=== PATIENT | male | born 1960 | race Caucasian/White ===

== ENCOUNTER 2023-06-28 00:47 | Day surgery (SDC) | payer BC, SELFPAY ==
[2023-06-26 08:19] VITALS: BMI 26.4
[2023-06-28 12:47] VITALS: BP 131/82; PULSE 73; RESP 20; TEMP 36.2; O2SAT 99; BMI 25.8
--- NOTE | 2023-06-28 13:29 | PM.HPGS ---
History of Present Illness History of Present Illness Consent: Risks, benefits, and alternatives have been discussed and questions answered. Patient agrees to proceed with procedure. Chief complaint: blood in stool Narrative: Handy Montes is a 63 year old male Presents for colonoscopy. Patient has past medical history is significant for colon polyps. Most recently 2018. Family history is significant that his father had colon cancer. Patient is been in general good health. In June developed a tooth abscess was placed on amoxicillin and during the course of therapy developed bright red blood in his stools. This lasted for approximately 1 week and subsequently been normal over the last 1 month. Patient presents today for colonoscopy to evaluate more thoroughly. Family history as stated. Review of Systems Review of Systems: Review of systems noncontributory. [facility] Past Medical History Medical History (Updated 06/28/23 @ 13:31 by Adalberto Saleh MD) GERD (gastroesophageal reflux disease) Hyperlipidemia Family History Family History Grandparent Family history of alcoholism Family history of lung cancer Family history of coronary artery disease Family history of malignant neoplasm of ovary Diabetes mellitus Social History Social History Smoking status: Former smoker Tobacco type: cigarettes Smoking end date: 10/01/90 Alcohol intake: current Drinks per week: 4 Substance use type: does not use Living arrangements: with family Spiritual care concerns: No Meds Home Medications and Allergies Home Medications Medication Instructions Recorded Confirmed Type tadalafil 5 mg tablet 5 mg PO DAILY 02/02/20 06/26/23 History testosterone cypionate 100 mg/mL 75 mg IM WEEKLY 02/02/20 06/26/23 History intramuscular oil sodium,potassium,mag sulfates 17.5 See Rx Instructions PO .COMPLEX 06/12/23 Rx gram-3.13 gram-1.6 gram oral soln #354 mL (Suprep Bowel Prep Kit) lovastatin 20 mg tablet 20 mg PO DAILY 06/26/23 06/26/23 History olmesartan 40 mg tablet 20 mg PO DAILY 06/26/23 06/26/23 History omeprazole 20 mg capsule,delayed 20 mg PO DAILY 06/26/23 06/26/23 History release Allergies Allergy/AdvReac Type Severity Reaction Status Date / Time No Known Allergies Allergy Verified 06/26/23 08:19 Vital Signs Vital Signs - 24 hr 06/28/23 12:47 Temperature 97.1 F L Pulse Rate 73 Respiratory Rate 20 Blood Pressure 131/82 Pulse Oximetry 99 Oxygen Delivery Room Air Exam Narrative: Physical exam reveals patient to be alert. Vital signs stable. HEENT exam is unremarkable. Patient is anicteric. Lungs are clear to auscultation and percussion. Heart is without murmur or extra sounds. Abdomen bowel sounds are present soft nontender with no organomegaly. Digital external rectal exam normal. Assessment and Plan Assessment and plan (1) Family history of colon cancer in father: Code(s): Z80.0 - Family history of malignant neoplasm of digestive organs Status: Acute Assessment and Plan: Patient's father has had colon cancer for this reason colonoscopy advised at least every 5 years. (2) Hx of adenomatous colonic polyps: Code(s): Z86.010 - Personal history of colonic polyps Status: Acute Assessment and Plan: Patient found to have colon polyps in 2019. Plan for surveillance colonoscopy is a 4-5 year intervals. (3) Blood in stool: Code(s): K92.1 - Melena Status: Acute Assessment and Plan: Recent blood in stool associated with amoxicillin use. Plan for colonoscopy to evaluate more thoroughly. Further recommendations may be given after endoscopy.
--- NOTE | 2023-06-28 13:44 | P.PNAN_ITS ---
Anes - Initial Pre Proc Eval Procedure: Operation Date: 06/28/23 14:00 Proposed Procedures p Colonoscopy - Adalberto Saleh MD Date/Time: 06/28/23 13:44 Surgeon: Adalberto Saleh MD Pre Op Diagnosis: blood in stool Patient Data Age: 63 Gender: M Height: 1.83 m Weight: 86.5 kg Last Vital Signs Temp 97.1 F L 06/28/23 12:47 Pulse 73 06/28/23 12:47 Resp 20 06/28/23 12:47 BP 131/82 06/28/23 12:47 Pulse Ox 99 06/28/23 12:47 O2 Del Method Room Air 06/28/23 12:47 Allergies Allergy/AdvReac Type Severity Reaction Status Date / Time No Known Allergies Allergy Verified 06/26/23 08:19 Home Medications Medication Instructions Recorded Confirmed Type tadalafil 5 mg tablet 5 mg PO DAILY 02/02/20 06/26/23 History testosterone cypionate 100 mg/mL 75 mg IM WEEKLY 02/02/20 06/26/23 History intramuscular oil sodium,potassium,mag sulfates 17.5 See Rx Instructions PO .COMPLEX 06/12/23 Rx gram-3.13 gram-1.6 gram oral soln #354 mL (Suprep Bowel Prep Kit) lovastatin 20 mg tablet 20 mg PO DAILY 06/26/23 06/26/23 History olmesartan 40 mg tablet 20 mg PO DAILY 06/26/23 06/26/23 History omeprazole 20 mg capsule,delayed 20 mg PO DAILY 06/26/23 06/26/23 History release Patient hx anesthesia problems: none Family hx anesthesia problems: none Results Review: All pre-operative results and documents have been reviewed as part of the pre- operative evaluation. [facility] Past Medical History Medical History (Updated 06/28/23 @ 13:31 by Adalberto Saleh MD) GERD (gastroesophageal reflux disease) Hyperlipidemia Family History Family History Grandparent Family history of alcoholism Family history of lung cancer Family history of coronary artery disease Family history of malignant neoplasm of ovary Diabetes mellitus Social History Social History Smoking status: Former smoker Tobacco type: cigarettes Smoking end date: 10/01/90 Alcohol intake: current Drinks per week: 4 Substance use type: does not use Living arrangements: with family Spiritual care concerns: No Anes - Eval Final PreProcedure Day of Procedure 06/28/23 13:44 Patient weight: normal Heart: regular rate and rhythm Lungs: clear to auscultation Airway: Mallampati scale class II Neurological: alert and oriented Last oral intake: >/= 8 hours ASA classification: II Emergent: no Anesthetic plan: proceed Anesthesia type and monitoring: general GIVS and standard monitoring Results Review: All pre-operative results and documents have been reviewed as part of the pre- operative evaluation. Informed Consent: The patient's anesthetic plan and its attendant risks and benefits were discussed with the patient/family/POA. Questions were solicited and answers provided to the satisfaction of the patient/family/POA.
[2023-06-28] MEDS: LACTATED RINGERS 1,000 ML 150 ML IV CONT (13:45)
[2023-06-28 14:16] VITALS: BP 157/96; PULSE 84; RESP 21; O2SAT 97
[2023-06-28 14:26] VITALS: BP 147/84; PULSE 78; RESP 20; O2SAT 99
[2023-06-28 14:36] VITALS: BP 141/91; PULSE 76; RESP 22; O2SAT 99
[2023-06-28] MEDS: ACETAMINOPHEN 325 MG TABLET 650 MG PO (14:44)
== END 2023-06-28 14:45 | disposition home or self-care (01) ==
PROVIDERS: Visit Provider Internal Medicine Gastroenterology
PROC: 0DJD8ZZ Inspection of Lower Intestinal Tract, Via Natural or Artificial Opening Endoscopic (ICD-10-PCS; CPT 45378; principal; 2023-06-28 14:00)
DX: K63.5 Polyp of colon (principal); K64.8 Other hemorrhoids; K57.30 Diverticulosis of large intestine without perforation or abscess without bleeding; Z80.0 Family history of malignant neoplasm of digestive organs; K21.9 Gastro-esophageal reflux disease without esophagitis; E78.5 Hyperlipidemia, unspecified; Z87.891 Personal history of nicotine dependence; Z79.890 Hormone replacement therapy
CPT/HCPCS: 45385; 88305; A9270; J2704; J7120

== ENCOUNTER 2024-04-14 12:17 | Inpatient (IN) | payer BC, SELFPAY ==
[2024-04-14] VITALS (16 sets, daily range): BP systolic 139–159; BP diastolic 82–119; PULSE 89–108; RESP 14–20; TEMP 36.3–36.8; O2SAT 95–98
--- NOTE | ~2024-04-14 | CT_ITS ---
Clinical Indication: Possible perforated bowel CT Scan of the Chest, Abdomen, and Pelvis without Contrast: Technique: Contiguous sections were acquired throughout the chest, abdomen, and pelvis without IV con trast administration. Dose reduction technique was used on this scan by utilizing automated exposure control and iterative reconstruction technique. The dose-length product (DLP) was 1657.15 mGy-cm. Findings: There is no evidence of any significant mediastinal, hilar or axillary lymphadenopathy. There is flui d distention of the esophagus, NG tube in place. ET tube in place.. There is no evidence of pleural or pericardial effusion. There is extensive left lower lobe consolidation. There is additional partial consolidation of the de pendent portions of the left upper lobe. There is mild patchy consolidation at the posterior right elisabeth ng base/lower lobe. The liver, spleen, pancreas, adrenals and kidneys are within normal limits. Probable gallbladder slud ge. No evidence of aortic aneurysm. No lymphadenopathy. Questionable mild wall thickening of the hepatic flexure and proximal transverse colon. No bowel obst ruction. No free air. There is no evidence to suggest acute appendicitis. There is sigmoid diverticul osis. Urinary bladder is collapsed around a Gruber catheter. Prostate gland is enlarged. No ascites. Impression: No evidence of bowel perforation. Extensive left lung consolidation, compatible with pneumonia. Mild patchy consolidation right lung ba se consolidation pneumonia versus atelectasis. Probable gallbladder sludge. Questionable mild wall thickening of the hepatic flexure and proximal transverse colon. Correlate for infectious/inflammatory colitis. Enlarged prostate gland. Reviewed, dictated and finalized at [facility]. Impression: No evidence of bowel perforation. Extensive left lung consolidation, compatible with pneumonia. Mild patchy conso lidation right lung base consolidation pneumonia versus atelectasis. Probable gallbladder sludge. Questionable mild wall thickening of the hepatic flexure and proximal transvers e colon. Correlate for infectious/inflammatory colitis. Enlarged prostate gland.
--- NOTE | ~2024-04-14 | CT_ITS ---
CT chest abdomen pelvis wo con Ordering provider: Kunal Ponce MD History: . fevers, sepsis . Comparison: None. Technique: CT chest without IV contrast. CT abdomen and pelvis without oral and IV contrast. Radiation reduction technique utilized. DLP is 1497.89 mGy-cm. FINDINGS: The study is limited due to lack of IV contrast. CHEST: --VISUALIZED THORACIC INLET: Normal as visualized. Left central line with the tip in the superior vena cava. --MEDIASTINUM: Aorta/coronary arteries: The thoracic aorta is normal. Heart/other: The heart is not enlarged. Lymph nodes: No mediastinal or hilar adenopathy. --LUNGS: Bilateral patchy groundglass appearing areas are noted more on the left side which is sugges tive of atypical or viral pneumonia including COVID. Clinical correlation advised. Left basal atelectasis with adjacent minimal effusion seen. Left lower lobe pneumonia is noted. Lesser degree of right basilar atelectasis with possible adjacent effusion i s possible. Pneumonia is also seen in the lingula. No pulmonary nodules or masses. . No pneumothorax. --MUSCULOSKELETAL: Soft tissues: The superficial soft tissues are normal. Bones: Age appropriate degenerative changes of the spine. ABDOMEN/PELVIS: Nasogastric tube seen extending to the stomach. --MUSCULOSKELETAL: Bones: Age appropriate degenerative changes of the spine. Superficial soft tissues: The superficial soft tissues are normal. --UPPER ABDOMINAL ORGANS: Liver: Normal. Gallbladder: Normal. Spleen: Normal. Stomach/duodenum: Sliding hiatus hernia. Pancreas: Normal. Adrenals: Normal. Kidneys: Cyst seen in the right kidney upper pole measuring 3.4 cm. Soft tissue density in the right kidney midpole measuring 4 x 3 cm. This may be complex cyst or a mass. Hounsfield unit is 31. Ultraso und evaluation advised. Small soft tissue density also seen in the left kidney lower pole. --PELVIC ORGANS: The bladder is normal. No bladder stones. Gruber catheter is in the bladder. --BOWEL AND MESENTERY: Colon: Mild diverticulosis without diverticulitis sigmoid colon. Narrowing the area is are seen in th e sigmoid colon most likely spastic. Follow-up advised. Normal appendix. Small Bowel: Normal. No obstruction. Peritoneum/mesentery: No free air. Trace of fluid seen in the right paracolic gutter. No mesenteric l ymphadenopathy. --RETROPERITONEUM: Mild atheromatous disease of the abdominal aorta. No retroperitoneal lymphadenop athy. IMPRESSION: CHEST: 1. Atypical or viral pneumonia with pneumonia in the left lower lobe and lingula. Minimal atelectasi s versus pneumonia in the right lower lobe. Left pleural effusion. ABDOMEN/PELVIS: 1. Soft tissue density in the right kidney which is most likely complex cyst. Ultrasound evaluation advised. Otherwise bilateral renal cysts. 2. No evidence of appendicitis, diverticulitis or intestinal obstruction. 3. Sliding hiatus hernia. 4. Trace of fluid seen in the right paracolic gutter. Follow-up advised Reviewed, dictated and finalized at location [facility]. IMPRESSION: CHEST: 1. Atypical or viral pneumonia with pneumonia in the left lower lobe and lingu la. Minimal atelectasis versus pneumonia in the right lower lobe. Left pleural effusion. ABDOMEN/PELVIS: 1. Soft tissue density in the right kidney which is most likely complex cyst. Ultrasound evaluation advised. Otherwise bilateral renal cysts. 2. No evidence of appendicitis, diverticulitis or intestinal obstruction. 3. Sliding hiatus hernia. 4. Trace of fluid seen in the right paracolic gutter. Follow-up advised
--- NOTE | ~2024-04-14 | NM_ITS ---
EXAMINATION: NM hepatobiliary wo pharm DATE: 04/22/2024 15:18 INDICATION: Fevers. Inconclusive right upper quadrant ultrasound. COMPARISON: None. TECHNIQUE: 4.891 mCi Tc-99m mebrofenin (Choletec) was administered intravenously. Scintigraphic imag es of the abdomen were obtained for one hour. Additional 3 hour delayed scintigrams obtained.. FINDINGS: There is normal clearance of radiotracer from the blood pool. There is homogeneous tracer u ptake by the liver. Activity progresses to the bowel and gallbladder with duodenal and gallbladder a ctivity first evident at 20 minutes. The gallbladder activity is somewhat obscured by the persistent prominent activity in the liver with delayed hepatic clearance resulting in still significant gallbla dder activity on the 3 hour delayed images. IMPRESSION: 1. Normal filling of the gallbladder which strongly argues against acute cholecystitis. 2. Delayed clearance of hepatic activity but with normal clearance from the blood pool and no delay i n passage of activity into the small bowel which is suggestive of primary hepatic dysfunction of inde terminate etiology. Reviewed, dictated and finalized at location [facility]. IMPRESSION: 1. Normal filling of the gallbladder which strongly argues against acute garland cystitis. 2. Delayed clearance of hepatic activity but with normal clearance from the blo od pool and no delay in passage of activity into the small bowel which is sugge stive of primary hepatic dysfunction of indeterminate etiology.
--- NOTE | ~2024-04-14 | XR_ITS ---
Portable chest x-ray Comparison: 04/16/2024 Clinical History: Tube placement Findings: Endotracheal tube, NG tube, and left-sided PICC line are in satisfactory positions. There is patchy left basilar and left midlung consolidation. Right lung clear. Cardiomediastinal silhouett e is stable. Bones and soft tissues are unremarkable. Impression: Patchy left basilar and left midlung pneumonia. Support tubes, as above. Reviewed, dictated and finalized at location . Impression: Patchy left basilar and left midlung pneumonia. Support tubes, as above.
--- NOTE | ~2024-04-14 | XR_ITS ---
XR chest ET placement 04/16/2024 11:28 Indication: Respiratory distress. Intubation. Procedure: AP portable chest Comparison: 04/16/2024 Findings: Endotracheal tube tip 4.7 cm above the leonides. NG tube in the stomach. Heart size normal. M ildly elevated left diaphragm. There is airspace disease of the left mid and lower lung. Possible sma ll left effusion. Impression: 1: Left-sided airspace disease of the left mid and lower lung which may represent pneumonia and/or at electasis. Reviewed, dictated and finalized at location B. Impression: 1: Left-sided airspace disease of the left mid and lower lung which may represe nt pneumonia and/or atelectasis.
--- NOTE | ~2024-04-14 | XR_ITS ---
XR abdomen gastric tube insert INDICATION: Evaluate NG tube position. TECHNIQUE: Limited KUB perform for evaluating NG tube . COMPARISON: No prior studies for comparison. FINDINGS: NG tube tip in the stomach. Visualized bowel gas pattern is unremarkable.There is left bas ilar airspace disease. IMPRESSION: 1: NG tube tip in the stomach. 2: Left basilar airspace disease which may represent pneumonia and/or atelectasis. Reviewed, dictated and finalized at location B. IMPRESSION: 1: NG tube tip in the stomach. 2: Left basilar airspace disease which may represent pneumonia and/or atelecta sis.
--- NOTE | ~2024-04-14 | XR_ITS ---
XR chest 1V portable DATE: 04/20/2024 05:22 INDICATION: Intubation. Mechanical ventilation. TECHNIQUE: Portable AP chest on 04/20/2024 at 0511 hours COMPARISON: 04/19/2024 portable AP chest at 0534 hours FINDINGS: There is extensive patchy consolidation throughout the left lung, most prominent in the lef t mid and lower lung zones. The right lung remains essentially clear. No pleural effusion or pulmonary vascular congestion or pneumothorax is evident. ET and NG tubes in satisfactory position. Left upper extremity PIC catheter tip overlies the upper ri ght atrium. IMPRESSION: Extensive left-sided patchy pulmonary consolidation, relatively stable or mildly increase d since 04/19/2024 Reviewed, dictated and finalized at location A. IMPRESSION: Extensive left-sided patchy pulmonary consolidation, relatively sta ble or mildly increased since 04/19/2024
--- NOTE | ~2024-04-14 | XR_ITS ---
EXAMINATION: XR chest 1V portable DATE: 04/24/2024 05:27 INDICATION: Pneumonia. Mechanical ventilation. TECHNIQUE: frontal view of the chest was obtained. COMPARISON: Chest radiograph dated 04/23/2024 FINDINGS: Interval decrease in patchy airspace opacities in the left mid to lower lung zone and medial right lo wer lung. No pulmonary edema, pleural effusion or pneumothorax. The cardiomediastinal silhouette is n ormal. Nasogastric tube extends below the left hemidiaphragm with distal tip collimated off the stud y. IMPRESSION: 1. Improving left-sided predominant pneumonia in the lower lungs Reviewed, dictated and finalized at location A.
--- NOTE | ~2024-04-14 | XR_ITS ---
Portable chest x-ray Comparison: 03/23/2010 Clinical History: Respiratory distress Findings: Questionable small left pleural effusion. Right lung clear. ET tube in satisfactory positi on. Cardiomediastinal silhouette is stable. Bones and soft tissues are unremarkable. Impression: ET tube in place. Questional small left pleural effusion. Reviewed, dictated and finalized at location . Impression: ET tube in place. Questional small left pleural effusion.
--- NOTE | ~2024-04-14 | XR_ITS ---
Portable chest x-ray Comparison: 04/17/2024 Clinical History: Intubation Findings: Endotracheal tube and NG tube are in satisfactory positions. Left-sided PICC line is in pl jocelyn, however the tip has flipped superiorly into the right innominate vein. Patchy left lung airspace disease is again present. Probable mild patchy airspace disease at the right upper lobe present. Ca rdiomediastinal silhouette is stable. Bones and soft tissues are unremarkable. Impression: Left-sided PICC line tip has flipped superiorly into the right brachiocephalic vein. Consider reposit ioning. Other support tubes are unchanged. Patchy bilateral airspace disease, left lung worse than right. Correlate for bilateral pneumonia. Reviewed, dictated and finalized at location . Impression: Left-sided PICC line tip has flipped superiorly into the right brachiocephalic vein. Consider repositioning. Other support tubes are unchanged. Patchy bilateral airspace disease, left lung worse than right. Correlate for bi lateral pneumonia.
--- NOTE | ~2024-04-14 | US_ITS ---
US abdomen limited, US renal BI EXAMINATION: US Abdomen Complete CLINICAL INDICATION: Hyperbilirubinemia. PROCEDURE: Real-time transabdominal and complete ultrasound of the abdomen FINDINGS: Gallbladder wall is thickened measuring 4.5 mm. No definite gallstones. Common bile duct m easures 9 mm mm. Liver echotexture is increased, consistent with fatty infiltration.. Pancreas within normal limits. Pancreatic tail is obscured by bowel gas. Spleen is unremarkeable. Renal echotexture is within norm al limits bilaterally without hydronephrosis, contour deforming mass or renal stone. There are right renal cysts, largest measuring 4.1 cm. Right kidney measures 11.2 cm. Left kidney measures 12.8 cm. Visualized aspects of the aorta and IVC are within normal limits. Portal vein is patent. No sonograph ic Cintron's sign indicated by the technologist. IMPRESSION: 1: Gallbladder wall thickening with dilated common bile duct measuring 9 mm. No gallstones. Consider acalculous cholecystitis in the appropriate clinical setting. 2: Fatty infiltration of the liver. 3: Right renal cysts, largest measuring 4.1 cm. Reviewed, dictated and finalized at location B. IMPRESSION: 1: Gallbladder wall thickening with dilated common bile duct measuring 9 mm. No gallstones. Consider acalculous cholecystitis in the appropriate clinical sett ing. 2: Fatty infiltration of the liver. 3: Right renal cysts, largest measuring 4.1 cm.
--- NOTE | ~2024-04-14 | XR_ITS ---
EXAMINATION: XR chest ET placement DATE: 04/16/2024 13:39 INDICATION: Assess endotracheal tube position TECHNIQUE: frontal view of the chest was obtained. COMPARISON: Chest radiograph dated 04/16/2024 FINDINGS: Endotracheal tube tip 5.0 cm above the leonides. Nasogastric tube extends below the left hemidiaphragm with distal tip collimated off the study. Worsening airspace opacities in the left mid and lower lung zone which includes an enlarging small le ft pleural effusion. Right lung remains clear. No pneumothorax or right-sided pleural effusion. Heart size is normal. IMPRESSION: 1. Increasing small left pleural effusion with worsening opacity left mid and lower lung zone which c ould represent associated atelectasis and/or pneumonia. Reviewed, dictated and finalized at location A. IMPRESSION: 1. Increasing small left pleural effusion with worsening opacity left mid and l ower lung zone which could represent associated atelectasis and/or pneumonia.
--- NOTE | ~2024-04-14 | XR_ITS ---
XR abdomen obstructive series INDICATION: Evaluate NG tube position. TECHNIQUE: Limited KUB perform for evaluating NG tube . COMPARISON: No prior studies for comparison. FINDINGS: NG tube tip in the stomach. Visualized bowel gas pattern is unremarkable. IMPRESSION: 1: NG tube tip in the stomach. Reviewed, dictated and finalized at location B.
--- NOTE | ~2024-04-14 | XR_ITS ---
EXAMINATION: XR chest 1V portable DATE: 04/22/2024 05:36 INDICATION: Pneumonia TECHNIQUE: frontal view of the chest was obtained. COMPARISON: Chest radiograph dated 04/21/2024 FINDINGS: Right upper extremity peripherally inserted central venous catheter (PICC) is repositioned now in exp ected position with distal tip at the mid superior vena cava. Endotracheal tube and nasogastric tube have been removed. No significant change in patchy airspace opacities in the left mid to lower lung zone and right infra hilar region. No pleural effusion or pneumothorax. Heart size is normal. Visualized bones and soft ti ssues are unremarkable. IMPRESSION: 1. No significant change in opacities in the left mid to lower and medial right lower lung zones cons istent with multifocal pneumonia. Reviewed, dictated and finalized at location A. IMPRESSION: 1. No significant change in opacities in the left mid to lower and medial right lower lung zones consistent with multifocal pneumonia.
--- NOTE | ~2024-04-14 | XR_ITS ---
XR abdomen gastric tube insert Ordering provider: Kunal Ponce History: . NG tube placement . Comparison: None. FINDINGS/impression: Nasogastric tube is seen with the tip in the distal body of the stomach. Left basal pneumonia. Degenerative spine. Reviewed, dictated and finalized at location A.
--- NOTE | ~2024-04-14 | XR_ITS ---
EXAMINATION: XR chest 1V portable DATE: 04/18/2024 11:37 INDICATION: Assess PICC line position TECHNIQUE: frontal view of the chest was obtained. COMPARISON: Chest radiograph dated 04/18/2024 at 5:12 AM FINDINGS: The previously malpositioned tip of the left upper extremity peripherally inserted central venous cat heter (PICC) tip has been repositioned, now in the cephalad superior vena cava. Endotracheal tube tip 3.9 cm above the leonides. Nasogastric tube extends below the left hemidiaphragm with distal tip delmy imated off the study. Persistent mild airspace opacities throughout the left lower lung zone and perihilar region and at th e infrahilar medial right lower lung zone. No pleural effusion or pneumothorax. The cardiomediastinal silhouette is normal. IMPRESSION: 1. Left upper cavity PICC line now in the cephalad superior vena cava. 2. Persistent opacities in bilateral airspace opacities in the lower lungs, left greater than right w hich remain concerning for pneumonia. Reviewed, dictated and finalized at location A. IMPRESSION: 1. Left upper cavity PICC line now in the cephalad superior vena cava. 2. Persistent opacities in bilateral airspace opacities in the lower lungs, lef t greater than right which remain concerning for pneumonia.
--- NOTE | ~2024-04-14 | US_ITS ---
EXAMINATION:US venous doppler LE BI INDICATION:Fever TECHNIQUE: Multiple grayscale, color flow and Doppler images of the right and left lower extremity de ep venous systems were obtained and reviewed. COMPARISON:No prior studies for comparison. FINDINGS: The common femoral, superficial femoral and popliteal veins demonstrate normal respiratory variation, augmentation and compressibility. Color flow is also seen within the posterior tibial, pe roneal, greater saphenous and profunda veins. IMPRESSION: 1: No lower extremity deep venous thrombosis. Reviewed, dictated and finalized at location B.
--- NOTE | ~2024-04-14 | XR_ITS ---
XR chest 1V portable 04/19/2024 06:03 Indication: Respiratory distress. Intubation. Procedure: AP portable chest Comparison: Comparison to multiple prior studies sequentially, with oldest reviewed study dated 04/16. Findings: There is asymmetric left-sided airspace disease, compatible with pneumonia. NG tube in the stomach. Endotracheal tube tip approximately 6 cm above the leonides. PICC line tip in the SVC. No pleu ral effusion or pneumothorax. Impression: 1: Asymmetric left-sided airspace disease, compatible with pneumonia. Reviewed, dictated and finalized at location B. Impression: 1: Asymmetric left-sided airspace disease, compatible with pneumonia.
--- NOTE | ~2024-04-14 | XR_ITS ---
EXAMINATION: XR chest PICC line DATE: 04/16/2024 14:24 INDICATION: PICC line placement TECHNIQUE: frontal view of the chest was obtained. COMPARISON: Chest radiograph dated 04/16/2024 at 11:22 AM FINDINGS: Left upper extremity peripherally inserted central venous catheter (PICC) tip at the caudal superior vena cava. Endotracheal tube tip 5.2 cm above the leonides. Nasogastric tube which extends through the distal esophagus and beyond the caudal margin of the [id number]. Increasing airspace opacities in the left mid and lower lung zone with air bronchograms. The visualiz ed portions of the right lung are clear. No pneumothorax. Heart size is normal. IMPRESSION: 1. Left upper 70 PICC line tip at the caudal superior vena cava. 2. Worsening opacity left mid and lower lung zone which could represent pneumonia, atelectasis, poste rior larynx small left pleural effusion, asymmetric pulmonary edema or some combination thereof. Reviewed, dictated and finalized at location A. IMPRESSION: 1. Left upper 70 PICC line tip at the caudal superior vena cava. 2. Worsening opacity left mid and lower lung zone which could represent pneumon ia, atelectasis, posterior larynx small left pleural effusion, asymmetric pulmo nary edema or some combination thereof.
--- NOTE | ~2024-04-14 | XR_ITS ---
EXAMINATION: XR chest 1V portable DATE: 04/21/2024 05:38 INDICATION: Pneumonia. Mechanical ventilation. TECHNIQUE: frontal view of the chest was obtained. COMPARISON: Chest radiograph dated 04/20/2024 FINDINGS: Endotracheal tube tip 4 cm above the leonides. Nasogastric tube extends below the left hemidiaphragm w ith distal tip collimated off the study. Left upper extremity peripherally inserted central venous ca theter (PICC) which has changed in position with the distal tip now directed cephalad along the right brachiocephalic vein. Persistent airspace opacity left mid and lower lung zone. Right lung remains clear. No pleural effusi on or pneumothorax. The cardiomediastinal silhouette is normal. IMPRESSION: 1. Left upper extremity PICC line has changed in position with distal tip directed cephalad in the ri ght brachiocephalic vein. Considering rapid saline flush to reposition. 2. Persistent airspace opacity left mid and lower lung zone consistent with pneumonia. Reviewed, dictated and finalized at location A. IMPRESSION: 1. Left upper extremity PICC line has changed in position with distal tip direc marylou cephalad in the right brachiocephalic vein. Considering rapid saline flush to reposition. 2. Persistent airspace opacity left mid and lower lung zone consistent with pne umonia.
--- NOTE | ~2024-04-14 | XR_ITS ---
EXAMINATION: XR chest 1V portable DATE: 04/23/2024 05:24 INDICATION: Pneumonia TECHNIQUE: COMPARISON: Chest CT dated 04/22/2024 FINDINGS: Left upper extremity peripherally inserted central venous catheter (PICC) tip at the mid superior ve na cava. Nasogastric tube with distal tip in the distal esophagus. Patchy airspace opacities througho ut the left lung and to lesser degree at the medial right mid and lower lung zones. No pleural effusi on or pneumothorax. Heart size is normal. Visualized bones and soft tissues are unremarkable. IMPRESSION: 1. Nasogastric tube tip in the distal esophagus. Recommend advancement by [address] the proximal side-port below level of the gastroesophageal junction. 2. No significant change in bilateral multifocal pneumonia, left greater than right. Reviewed, dictated and finalized at location A. IMPRESSION: 1. Nasogastric tube tip in the distal esophagus. Recommend advancement by [address] the proximal side-port below level of the gastroesophageal junction. 2. No significant change in bilateral multifocal pneumonia, left greater than r ight.
--- NOTE | ~2024-04-14 | US_ITS ---
US abdomen limited INDICATION: Sepsis. Respiratory distress. PROCEDURE: Realtime right upper abdominal ultrasound. COMPARISON: No prior studies for comparison. FINDINGS: The pancreas is normal without focal mass or pancreatic ductal dilation. Liver echotexture is increased, consistent with fatty infiltration. There is normal directional flow in the portal ve in. Gallbladder wall is normal. No gallstones. There is pericholecystic fluid. Common bile duct measures 7 mm. No sonographic Cintron's sign. IMPRESSION: 1: Nonspecific pericholecystic fluid. Consider acalculous cholecystitis in the appropriate clinical s etting. 2: Fatty infiltration of the liver. Reviewed, dictated and finalized at location B. IMPRESSION: 1: Nonspecific pericholecystic fluid. Consider acalculous cholecystitis in the appropriate clinical setting. 2: Fatty infiltration of the liver.
--- NOTE | ~2024-04-14 | US_ITS ---
EXAMINATION: US venous doppler UE DATE: 04/25/2024 12:48 INDICATION: Left upper extremity erythema TECHNIQUE: Maier scale images with and without compression and Doppler images of the left upper extrem ity veins were obtained. COMPARISON: None. FINDINGS: The left internal jugular vein, subclavian vein, axillary vein, brachial veins, basilic vein, cephali c vein, radial vein, and ulnar vein are patent. IMPRESSION: 1. Patent left upper extremity veins. No evidence of deep venous thrombosis. Reviewed, dictated and finalized at location B.
--- NOTE | ~2024-04-14 | XR_ITS ---
XR abdomen gastric tube rechec INDICATION: Evaluate NG tube position. TECHNIQUE: Limited KUB perform for evaluating NG tube . COMPARISON: No prior studies for comparison. FINDINGS: NG tube tip in the stomach. Visualized bowel gas pattern is unremarkable.Diffuse bilateral airspace disease may represent edema or pneumonia. IMPRESSION: 1: NG tube tip in the stomach. Reviewed, dictated and finalized at location B.
--- NOTE | ~2024-04-14 | CT_ITS ---
EXAMINATION: CT brain wo con DATE: 04/22/2024 10:44 INDICATION: Confusion TECHNIQUE: Computed tomography (CT) of the head was performed without intravenous contrast. The dose- length product was 681.00 mGy-cm. Automated exposure control and iterative reconstruction technique w ere employed. COMPARISON: None FINDINGS: Mild generalized atrophy. There are scattered mild periventricular and subcortical white ma tter changes, most likely related to small vessel ischemic disease (microangiopathy). No acute infarc tion, hemorrhage, mass or mass effect. Mucosal thickening of the left maxillary, ethmoid and sphenoid sinuses. Mastoids are pneumatized. No depressed skull fractures. IMPRESSION: 1. No acute intracranial abnormality. 2: Mild sinusitis. Reviewed, dictated and finalized at location B.
--- NOTE | 2024-04-14 12:55 | ED.GIBLEED ---
HPI - GI Bleed General Chief complaint: GI Bleed <Katie Wetzel PA-C - Last Filed: 04/15/24 10:03> Stated complaint: vomiting blood <Katie Wetzel PA-C - Last Filed: 04/15/24 10:03> Time Seen by Provider: 04/14/24 12:55 <Katie Wetzel PA-C - Last Filed: 04/15/24 10:03> Focused HPI: This is a 64-year-old male that presents to the emergency department for GI bleed. Reports hematemesis. Reports 2 episodes of this this morning. Patient takes Vonoprazan daily for reflux. Reports history of GI bleed in the past. He has not take any anticoagulation. GENERAL: Well-appearing, well-nourished, and in no acute distress. HEAD: Normocephalic, atraumatic. CHEST: Clear to auscultation. ?No respiratory distress. HEART: Regular rate and rhythm.? NEURO: ?Alert and oriented x3. Patient screened in triage and initial orders placed.? ?Additional care and disposition to be based upon?diagnostic testing and treatment. <Katie Wetzel PA-C - Last Filed: 04/15/24 10:03> History of Present Illness HPI Narrative: Patient is a 64 year old male with history of GERD, hiatal hernia here with vomiting blood. Patient notes that he was previously on omeprazole, has been having some resistance to this omeprazole and doubling his shorts over the course of the last several months. He recently saw his primary care doctor who runs a [employer] [facility] and they changed his medication for GERD to Vonoprazan. He notes that this morning he had 2 episodes of vomiting, they were associated with bright red blood, no clots in his vomit. He denies any history of prior liver disease, denies known history of varices. He states he drinks about 4 alcoholic drinks socially throughout the week. Is lax upper endoscopy was approximately [address] Dobbs at which time he was having very similar symptoms and it was attributed to his hiatal hernia and likely related gastritis. He endorses some mild epigastric and left upper quadrant abdominal discomfort, denies any bright red blood per rectum or dark stools. He does not take any blood thinners. <Twila Louie MD - Last Filed: 04/14/24 20:53> Related Data Home medications: Home Medications Medication Instructions Recorded Confirmed tadalafil 5 mg tablet 5 mg PO PRN PRN Erectile 02/02/20 04/14/24 Dysfunction testosterone cypionate 100 mg/mL 50 mg IM WEEKLY 02/02/20 04/14/24 intramuscular oil lovastatin 20 mg tablet 20 mg PO DAILY 06/26/23 04/14/24 olmesartan 40 mg tablet 40 mg PO DAILY 06/26/23 04/14/24 ferric maltol 30 mg capsule 30 mg PO BID 04/14/24 04/14/24 (Accrufer) tirzepatide (weight loss) 15 15 mg subcut WEEKLY 04/14/24 04/14/24 mg/0.5 mL subcutaneous pen injector (Zepbound) vonoprazan 20 mg tablet 20 mg PO DAILY 04/14/24 04/14/24 <Katie Wetzel PA-C - Last Filed: 04/15/24 10:03> Allergies/Adverse reactions: Allergies Allergy/AdvReac Type Severity Reaction Status Date / Time No Known Allergies Allergy Verified 04/14/24 12:51 <Katie Wetzel PA-C - Last Filed: 04/15/24 10:03> Review of Systems Review of Systems: All systems reviewed & are unremarkable except as noted in HPI and below <Twila Louie MD - Last Filed: 04/14/24 20:53> [facility] Past Medical History Medical History: Medical History (Updated 04/14/24 @ 23:45 by Cristina Jean PA-C) Gastroesophageal reflux disease Hiatal hernia Hyperlipidemia Hypertension <Katie Wetzel PA-C - Last Filed: 04/15/24 10:03> Surgical History Surgical History: Surgical History (Updated 04/14/24 @ 22:38 by Cristina Jean PA-C) History of bilateral inguinal hernia repair History of colonoscopy with polypectomy History of open reduction and internal fixation (ORIF) procedure Right ankle. History of vasectomy <Katie Wetzel PA-C - Last Filed: 04/15/24 10:03> Family History Family History: Family History Gran
[2024-04-14 13:30] LABS: Basophils Percent Auto 0.3 % (0.2-1.2); Eosinophils Percent Auto 0.2 % (0-4.4); Hematocrit 55.8 % (42.0-52.0); Hemoglobin 18.6 g/dL (14.0-18.0); Immature Granulocyte Absolute 0.03 K/mm3 (0.00-0.031); Immature Granulocyte Percent A 0.3 % (0-0.5); Lymphocytes Absolute Auto 1.07 K/mm3 (0.9-3.2); Lymphocytes Percent Auto 9.1 % (18.3-44.2); Mean Corpuscular HGB Conc 33.3 g/dl (32-36); Mean Corpuscular Hemoglobin 30.3 pg (26-34); Mean Platelet Volume 9.3 fl (7.4-10.4); Monocytes Absolute Auto 0.7 K/mm3 (0.1-0.6); Monocytes Percent Auto 5.8 % (2.6-8.5); Neutrophils Percent Auto 84.3 % (45.5-73.1); Platelet Count Result 225 k/mm3 (150-375); Red Blood Count 6.13 M/mm3 (4.6-6.20); Red Cell Distribution Width 13.2 % (11.5-14.5); White Blood Count 11.8 K/mm3 (4.5-10.0)
[2024-04-14 13:40] LABS: Alanine Aminotransferase 27 U/L (6-50); Albumin Level 5.1 g/dL (3.5-5.1); Alkaline Phosphatase 49 U/L (38-126); Anion Gap 17 mmol/L (4-12); Aspartate Amino Transferase 26 U/L (17-59); Bilirubin,Total 0.9 mg/dL (0.2-1.3); Blood Urea Nitrogen 25 mg/dL (9-20); Calcium 9.1 mg/dL (8.4-10.2); Carbon Dioxide 23 mmol/L (22-30); Chloride 98 mmol/L (98-107); Estimated CRCL calculation 59 ml/min; Estimated Glomerular Filt Rate > 60; Glucose 98 mg/dL (65-110); Potassium 4.6 mmol/L (3.4-5.0); Sodium 138 mmol/L (137-145)
[2024-04-14 13:43] LABS: Partial Thromboplastin Time 28.3 Seconds (22.3-36.8); Prothrombin Time 13.4 Seconds (11.1-14.7)
[2024-04-14] MEDS: PANTOPRAZOLE SODIUM IV 40 MG VIAL 80 MG IV PUSH (15:05)
[2024-04-14] MEDS: ONDANSETRON INJ 4 MG/2 ML VIAL IV PUSH (15:56)
[2024-04-14] MEDS: ACETAMINOPHEN 500 MG TABLET 1000 MG PO (20:07)
--- NOTE | 2024-04-14 21:06 | ADMGEN ---
This patient, Handy Montes, was admitted to Medical Room 259-01. Patient/family oriented to hospital policies and general routines including ID bracelet, bed and alarms, visiting hours, pain management, procedures, bathroom and other care routines, personal items, smoking policy, room service/diet, and visiting hours. Information on how to activate the Rapid Response Team has been discussed. Patient/Family are encouraged to report perceived risks to care and to ask questions if they do not understand what they are told or what they should do.
--- NOTE | 2024-04-14 22:32 | PM.IMHP ---
H&P: HPI History of Present Illness Date/Time: 04/14/24 23:00 Chief Complaint: Vomiting blood. Narrative: This is a very pleasant 64-year-old male with gastroesophageal reflux disease, hiatal hernia, hypertension, and hyperlipidemia who presented to the emergency department from home for evaluation of vomiting blood. He has been taking extra doses of omeprazole recently due to increasing GERD symptoms and after speaking with his doctor he was started on vonoprazan which seems to have helped. Today he developed mild epigastric and left upper quadrant abdominal discomfort with some nausea and he reports having 2 episodes of bright red blood emesis without clots. He has had some belching but no bloating. He has not had an upper endoscopy for many years but at that time was told he had a small hiatal hernia and findings of probable gastritis. He drinks perhaps 4 alcoholic beverages a week and denies significant NSAID use. He has no known history of peptic ulcers or liver disease. He has not noticed any dark stools or bright red blood in his stools. In the ED: He was afebrile on arrival with stable vital signs. Labs were significant for WBC count of 11.8, hemoglobin 18.6, hematocrit 55.8, INR 1.0, BUN 25, creatinine 1.20. He was given pantoprazole 80 mg IV and ondansetron 4 mg IV and he is being admitted in this setting for close monitoring and GI consultation. Review of Systems Review of Systems: 12 systems were reviewed and are negative except for as per HPI. [facility] Past Medical History Medical History (Updated 04/14/24 @ 23:45 by Cristina Jean PA-C) Gastroesophageal reflux disease Hiatal hernia Hyperlipidemia Hypertension Surgical History Surgical History (Updated 04/14/24 @ 22:38 by Cristina Jean PA-C) History of bilateral inguinal hernia repair History of colonoscopy with polypectomy History of open reduction and internal fixation (ORIF) procedure Right ankle. History of vasectomy Family History Family History Grandparent Family history of alcoholism Family history of lung cancer Family history of coronary artery disease Family history of malignant neoplasm of ovary Diabetes mellitus Social History Social History (Updated 04/14/24 @ 22:39 by Cristina Jean PA-C) Social History: Surrogate medical decision maker: Marla Michelle, significant other. Code status: Full code. Smoking status: Former smoker Tobacco type: cigarettes Smoking end date: 10/01/90 Alcohol intake: current Drinks per week: 4 Substance use: never Substance use type: does not use Do You Feel Safe in your Home?: Yes Lack of Transportation: No Lack of Food: Never True Current Housing: I Have Housing Concerned About Future Housing: No Difficulty Paying Gas/Electric Bills: No Difficulty Paying for Meds: No Currently Unemployed: No Education: High School Diploma/GED Difficulty w/ Childcare or Family Care: No Spiritual care concerns: No Meds Home Medications and Allergies Home Medications Medication Instructions Recorded Confirmed Type tadalafil 5 mg tablet 5 mg PO PRN PRN Erectile 02/02/20 04/14/24 History Dysfunction testosterone cypionate 100 mg/mL 50 mg IM WEEKLY 02/02/20 04/14/24 History intramuscular oil lovastatin 20 mg tablet 20 mg PO DAILY 06/26/23 04/14/24 History olmesartan 40 mg tablet 40 mg PO DAILY 06/26/23 04/14/24 History ferric maltol 30 mg capsule 30 mg PO BID 04/14/24 04/14/24 History (Accrufer) tirzepatide (weight loss) 15 15 mg subcut WEEKLY 04/14/24 04/14/24 History mg/0.5 mL subcutaneous pen injector (Zepbound) vonoprazan 20 mg tablet 20 mg PO DAILY 04/14/24 04/14/24 History Allergies Allergy/AdvReac Type Severity Reaction Status Date / Time No Known Allergies Allergy Verified 04/14/24 12:51 Vital Signs Vital Signs - 24 hr 04/14/24 12:51 04/14/24 15:05 04/14/24
[2024-04-14 23:06] LABS: Hematocrit 52.9 % (42.0-52.0); Hemoglobin 17.7 g/dL (14.0-18.0)
[2024-04-14 23:16] LABS: Lipase 47 U/L (23-300)
[2024-04-15] VITALS (10 sets, daily range): BP systolic 142–152; BP diastolic 82–98; PULSE 78–106; RESP 16–18; TEMP 36.6–36.8; O2SAT 94–97
[2024-04-15] MEDS: LACTATED RINGERS 1,000 ML 100 ML IV CONT (00:33)
[2024-04-15 05:09] LABS: Hematocrit 52.2 % (42.0-52.0); Hemoglobin 17.6 g/dL (14.0-18.0); Mean Corpuscular HGB Conc 33.7 g/dl (32-36); Mean Corpuscular Hemoglobin 30.8 pg (26-34); Mean Corpuscular Volume 91.3 fl (80-100); Mean Platelet Volume 9.3 fl (7.4-10.4); Platelet Count Result 225 k/mm3 (150-375); Red Blood Count 5.72 M/mm3 (4.6-6.20); Red Cell Distribution Width 13.5 % (11.5-14.5); White Blood Count 9.5 K/mm3 (4.5-10.0)
[2024-04-15] MEDS: ONDANSETRON INJ 4 MG/2 ML VIAL IV PUSH ×2 (05:17→17:08)
[2024-04-15 05:25] LABS: Anion Gap 13 mmol/L (4-12); Blood Urea Nitrogen 30 mg/dL (9-20); Calcium 8.9 mg/dL (8.4-10.2); Carbon Dioxide 24 mmol/L (22-30); Chloride 100 mmol/L (98-107); Estimated CRCL calculation 59 ml/min; Estimated Glomerular Filt Rate > 60; Glucose 101 mg/dL (65-110); Magnesium 2.3 mg/dL (1.6-2.3); Potassium 4.2 mmol/L (3.4-5.0); Sodium 137 mmol/L (137-145)
--- NOTE | 2024-04-15 08:18 | PM.IMPN ---
Progress Note: A&P Assessment and Plan (1) Hematemesis: Code(s): K92.0 - Hematemesis Status: Acute Assessment and Plan: Patient reports to occurrences of hematemesis after persistent symptoms of GERD. Suspect PUD. He also had some LUQ pain. Hemoglobin is 17.6, follow H&H Blood pressures are stable Lipase was normal NPO at midnight for gastric emptying study per GI. Patient can trial low-fat diet today. Protonix 40 mg IV push b.i.d. GI was consulted, recs appreciated. Patient will need outpatient EGD. (2) Gastroesophageal reflux disease: Code(s): K21.9 - Gastro-esophageal reflux disease without esophagitis Status: Acute Assessment and Plan: Patient has been dealing with GERD exacerbation and was taking extra doses of omeprazole without relief. PCP recently started him on Vonoprazan which has been helping. Continue PPI GI added Carafate Plan Feeding: Low-fat diet, NPO at midnight for nuclear medicine study. Analgesia: Tylenol Thromboembolic prophylaxis: SCD Ulcer prophylaxis: PPI BID and Carafate Disposition: 64 year old here with complaints of GERD with hematemesis and left upper quadrant pain. He has been made NPO, IVF, and PPI BID with GI consultation ordered. Anticipate EGD. Suspect PUD. He will return to his home upon discharge. Advance Care Plan I have confirmed that the patient's Advanced Care Plan is present, code status is documented, or surrogate decision maker is listed in patient medical record.: Yes Medication Reconciliation I have utilized all available resources to obtain, update and review the patients current medications (includes all prescriptions, OTC, herbals, cannabis, and nutritional supplements).: Yes Subjective Date/time seen: 04/15/24 08:18 Interval history: This is a very pleasant 64-year-old male with gastroesophageal reflux disease, hiatal hernia, hypertension, and hyperlipidemia who presented to the emergency department from home for evaluation of vomiting blood. 04/15: No acute events overnight. Patient is still having some nausea but it is controlled with Zofran. He also reports continued left upper quadrant fullness and abdominal pain. GI saw him today and is recommended a gastric emptying study. Review of Systems Review of Systems: 12 systems were reviewed and are negative except for as per HPI. All systems reviewed & are unremarkable except as noted in HPI and below Exam Narrative: General: well appearing, appears stated age. HEENT: normocephalic, atraumatic. Mucous membranes moist. EOMI, PERRLA, bilateral sclera anicteric, no conjunctival injection. Neck supple without JVD, lymphadenopathy, or bruit. Respiratory: clear to auscultation bilaterally. No rales/rhonic/wheezes. Cardiovascular: Regular rate and rhythm, normal S1-S2 upon auscultation. No murmurs, rubs, or clicks. PMI is nondisplaced, capillary refill less than 3 second. Abdomen: Soft, round, no pulsatile masses, + distended and mildly tender to the left upper quadrant. No rebound, no guarding. No CVA tenderness, no hepatosplenomegaly. Bowel sounds present to all four quadrants. No high pitch or tinkling sounds, resonant to percussion. Extremities: No cyanosis, clubbing, or edema present. Pulses are palpable 2/2. Active ROM to all four extremities. Neuro: Alert and orientated x 4. PERRLA. Cranial nerves 2-12 intact without focal deficit. Skin: Warm, dry, and intact, without rash, erythema, or lesion. Areas of discoloration and dryness to bilateral lower medial ankles, Lines: Incisions: Psych: pleasant, cooperative, normal speech, normal affect, no hallucinations, no dysarthria Objective Data Vital Signs Vital Signs: Vital Signs - 24 hr 04/14/24 12:51 04/14/24 15:05 04/14/24 15:07 Temperature 97.3 F L Pulse Rate 108 H 97 104 H Respiratory Rate 20 Blood Pressure 151/119 H 152/93 H 139/98 H Pulse Oximetry 97 Oxygen Delivery Room Air
--- NOTE | 2024-04-15 08:59 | P.CONGI_ITS ---
I, Joe Delgado MD, have provided a substantive portion of the care of this patient and discussed the patient with my Nurse Practitioner. I have reviewed any new relevant radiographic and laboratory results including medications. I agree with her documentation as noted below.?I personally performed the medical decision making and much of the history and exam for this encounter. briefly, he has GERD with last EGD about 20 years ago, recently with more GERD symptoms and about 3 weeks ago started on vonoprazan that helped with reflux symptom but had new onset of coffee ground emesis with upper abdominal discomfort, also h/o early satiety but has been using GLP1. Plan is to do EGD tomorrow, continue with ppi and voquezna. If no findings then will order gastric emptying study as outpatient. Assessment and Plan Assessment and plan (1) LUQ pain: Code(s): R10.12 - Left upper quadrant pain Status: Acute (2) Nausea & vomiting: Qualifiers: Vomiting type: hematemesis Qualified Code(s): K92.0 - Hematemesis Code(s): R11.2 - Nausea with vomiting, unspecified Status: Acute (3) Hematemesis: Qualifiers: Nausea presence: with nausea Qualified Code(s): K92.0 - Hematemesis Code(s): K92.0 - Hematemesis Status: Acute (4) Decreased appetite: Code(s): R63.0 - Anorexia Status: Acute (5) Early satiety: Code(s): R68.81 - Early satiety Status: Acute (6) Gastroesophageal reflux disease: Qualifiers: Esophagitis presence: esophagitis presence not specified Qualified C ode(s): K21.9 - Gastro-esophageal reflux disease without esophagitis Code(s): K21.9 - Gastro-esophageal reflux disease without esophagitis Status: Acute (7) Family history of colon cancer: Code(s): Z80.0 - Family history of malignant neoplasm of digestive organs Status: Acute (8) Hx of adenomatous colonic polyps: Code(s): Z86.010 - Personal history of colonic polyps Status: Acute Plan 1) Hematemesis/LUQ pain/ GERD/nausea /vomiting /early satiety /decreased appetite: Per patient last EGD performed > 20 years ago at which time per patient he was diagnosed with hiatal hernia. Longstanding history of reflux for greater than 25 years. He has been on omeprazole 40 mg daily the whole time but recently has been having more reflux symptoms and increase his omeprazole to 40 mg b.i.d. with persistent symptoms. He was recently started on Vonoprazan 3 weeks ago which he states has significantly improved his reflux symptoms. On Sunday he had 2 episodes of bright red blood emesis without clots or coffee- ground appearance. He is still having mild nausea but denies any further episodes of vomiting since admission. His upper abdominal pain has improved but not resolved since admission. He states that his upper abdominal pain did not increase her improve food intake. Recently he has been admitting to a decreased appetite and early satiety. It is unclear if his decreased appetite and early satiety may be secondary to changing gastric motility secondary to Zepbound. Denies any hematemesis, hematochezia, or melena. Last BM today was normal in color. He is on no aspirin, NSAIDs, or anticoagulation. BMP, CBC, LFTs, and lipase normal. INR 1.0. DDX: Saji ulcer versus Linda-López tear versus peptic ulcer disease versus motility disorder. * Protonix 40 mg b.i.d. * Carafate 1 g ac/hs empirically for possible gastritis/peptic ulcer disease. Carafate to be continued in combination with Vonoprazan as outpatient * continue antiemetics * gastri
--- NOTE | 2024-04-15 08:59 | WPDGICN ---
Assessment and Plan Assessment and plan (1) LUQ pain: Code(s): R10.12 - Left upper quadrant pain Status: Acute (2) Nausea & vomiting: Qualifiers: Vomiting type: hematemesis Qualified Code(s): K92.0 - Hematemesis Code(s): R11.2 - Nausea with vomiting, unspecified Status: Acute (3) Hematemesis: Qualifiers: Nausea presence: with nausea Qualified Code(s): K92.0 - Hematemesis Code(s): K92.0 - Hematemesis Status: Acute (4) Decreased appetite: Code(s): R63.0 - Anorexia Status: Acute (5) Early satiety: Code(s): R68.81 - Early satiety Status: Acute (6) Gastroesophageal reflux disease: Qualifiers: Esophagitis presence: esophagitis presence not specified Qualified Code(s): K21.9 - Gastro-esophageal reflux disease without esophagitis Code(s): K21.9 - Gastro-esophageal reflux disease without esophagitis Status: Acute (7) Family history of colon cancer: Code(s): Z80.0 - Family history of malignant neoplasm of digestive organs Status: Acute (8) Hx of adenomatous colonic polyps: Code(s): Z86.010 - Personal history of colonic polyps Status: Acute Plan 1) Hematemesis/LUQ pain/ GERD/nausea /vomiting /early satiety /decreased appetite: Per patient last EGD performed > 20 years ago at which time per patient he was diagnosed with hiatal hernia. Longstanding history of reflux for greater than 25 years. He has been on omeprazole 40 mg daily the whole time but recently has been having more reflux symptoms and increase his omeprazole to 40 mg b.i.d. with persistent symptoms. He was recently started on Vonoprazan 3 weeks ago which he states has significantly improved his reflux symptoms. On Sunday he had 2 episodes of bright red blood emesis without clots or coffee-ground appearance. He is still having mild nausea but denies any further episodes of vomiting since admission. His upper abdominal pain has improved but not resolved since admission. He states that his upper abdominal pain did not increase her improve food intake. Recently he has been admitting to a decreased appetite and early satiety. It is unclear if his decreased appetite and early satiety may be secondary to changing gastric motility secondary to Zepbound. Denies any hematemesis, hematochezia, or melena. Last BM today was normal in color. He is on no aspirin, NSAIDs, or anticoagulation. BMP, CBC, LFTs, and lipase normal. INR 1.0. DDX: Saji ulcer versus Linda-López tear versus peptic ulcer disease versus motility disorder. Protonix 40 mg b.i.d. Carafate 1 g ac/hs empirically for possible gastritis/peptic ulcer disease. Carafate to be continued in combination with Vonoprazan as outpatient continue antiemetics gastric emptying study ordered if patient continues with no signs of active bleeding and H&H remains stable will plan for outpatient EGD 2) Family history of colon cancer /personal history of colon polyps: Last colonoscopy 06/28/2023 showed diverticulosis and internal hemorrhoids but otherwise unremarkable. Patient's father was diagnosed with colon cancer at age 75. Patient is having regular bowel movements that are formed and not urgent and denies any alarm symptoms. Patient due for repeat colonoscopy in June of 2028 (5 year follow-up) Thank you very much for allowing me share in the care of this very nice patient. This report may have been done utilizing a voice recognition system. Attempts have been made to correct errors. However, there may be uncorrected grammatical, spelling, and recognition errors present. GI Consult Note Consult date/time: 04/15/24 08:59 Reason for consult: Hematemesis HPI: This is a 64 year old male with a past medical surgical history of GERD, hiatal hernia, HTN, HLD, bilateral inguinal hernia repair, and vasectomy. He presents to the office today for evaluation of radha
[2024-04-15] MEDS: PANTOPRAZOLE SODIUM IV 40 MG VIAL IV PUSH (09:13)
[2024-04-15] MEDS: polyethylene glycoL 3350 17 GM POWD.PACK PO (12:09)
[2024-04-15] MEDS: ACETAMINOPHEN 500 MG TABLET PO ×2 (15:57→20:08)
[2024-04-15] MEDS: SUCRALFATE 1 GM TABLET PO ×2 (17:08→20:08)
[2024-04-15] MEDS: PANTOPRAZOLE 40 MG TABLET PO (20:08)
[2024-04-15] MEDS: SENNA/DOCUSATE SODIUM TABLET 1 TAB PO (20:08)
[2024-04-15 21:41] LABS: Hematocrit 54.9 % (42.0-52.0); Hemoglobin 18.3 g/dL (14.0-18.0)
[2024-04-15] MEDS: METOCLOPRAMIDE HCL INJ 10 MG/2 ML VIAL IV PUSH (22:10)
[2024-04-16] VITALS (90 sets, daily range): BP systolic 68–168; BP diastolic 52–123; PULSE 78–129; RESP 11–31; TEMP 36.3–39.2; O2SAT 88–100
[2024-04-16 05:05] LABS: Basophils Percent Auto 0.4 % (0.2-1.2); Eosinophils Percent Auto 0.4 % (0-4.4); Hematocrit 54.7 % (42.0-52.0); Hemoglobin 18.2 g/dL (14.0-18.0); Immature Granulocyte Absolute 0.06 K/mm3 (0.00-0.031); Immature Granulocyte Percent A 0.5 % (0-0.5); Lymphocytes Absolute Auto 1.38 K/mm3 (0.9-3.2); Lymphocytes Percent Auto 12.1 % (18.3-44.2); Mean Corpuscular HGB Conc 33.3 g/dl (32-36); Mean Corpuscular Hemoglobin 30.8 pg (26-34); Mean Corpuscular Volume 92.6 fl (80-100); Mean Platelet Volume 9.4 fl (7.4-10.4); Monocytes Absolute Auto 0.9 K/mm3 (0.1-0.6); Monocytes Percent Auto 7.7 % (2.6-8.5); Neutrophils Percent Auto 78.9 % (45.5-73.1); Platelet Count Result 215 k/mm3 (150-375); Red Blood Count 5.91 M/mm3 (4.6-6.20); Red Cell Distribution Width 13.3 % (11.5-14.5); White Blood Count 11.4 K/mm3 (4.5-10.0)
[2024-04-16 05:16] LABS: Alanine Aminotransferase 24 U/L (6-50); Albumin Level 4.9 g/dL (3.5-5.1); Alkaline Phosphatase 46 U/L (38-126); Anion Gap 14 mmol/L (4-12); Aspartate Amino Transferase 24 U/L (17-59); Bilirubin,Total 1.1 mg/dL (0.2-1.3); Blood Urea Nitrogen 36 mg/dL (9-20); Calcium 8.9 mg/dL (8.4-10.2); Carbon Dioxide 24 mmol/L (22-30); Chloride 97 mmol/L (98-107); Estimated CRCL calculation 59 ml/min; Estimated Glomerular Filt Rate > 60; Glucose 96 mg/dL (65-110); Magnesium 2.3 mg/dL (1.6-2.3); Potassium 4.8 mmol/L (3.4-5.0); Sodium 135 mmol/L (137-145)
--- NOTE | 2024-04-16 09:10 | PC.NURSE ---
Patient to GI lab via wheelchair. Report given to Garry SETHI.
--- NOTE | 2024-04-16 09:17 | PM.IMPN ---
Progress Note: A&P Assessment and Plan (1) Hematemesis: Qualifiers: Nausea presence: with nausea Qualified Code(s): K92.0 - Hematemesis Code(s): K92.0 - Hematemesis Status: Acute Assessment and Plan: Patient reports to occurrences of hematemesis after persistent symptoms of GERD. Suspect PUD. He also had some LUQ pain. Hemoglobin is 17.6, follow H&H Blood pressures are stable Lipase was normal NPO at midnight for gastric emptying study per GI. Patient can trial low-fat diet today. Protonix 40 mg IV push b.i.d. GI was consulted, recs appreciated. Patient will need outpatient EGD. (2) Gastroesophageal reflux disease: Qualifiers: Esophagitis presence: esophagitis presence not specified Qualified Code(s): K21.9 - Gastro-esophageal reflux disease without esophagitis Code(s): K21.9 - Gastro-esophageal reflux disease without esophagitis Status: Acute Assessment and Plan: Patient has been dealing with GERD exacerbation and was taking extra doses of omeprazole without relief. PCP recently started him on Vonoprazan which has been helping. Continue PPI GI added Carafate Plan Feeding: Low-fat diet, NPO at midnight for nuclear medicine study. Analgesia: Tylenol Thromboembolic prophylaxis: SCD Ulcer prophylaxis: PPI BID and Carafate Disposition: 64 year old here with complaints of GERD with hematemesis and left upper quadrant pain. He has been made NPO, IVF, and PPI BID with GI consultation ordered. Anticipate EGD. Suspect PUD. He will return to his home upon discharge. Advance Care Plan I have confirmed that the patient's Advanced Care Plan is present, code status is documented, or surrogate decision maker is listed in patient medical record.: Yes Medication Reconciliation I have utilized all available resources to obtain, update and review the patients current medications (includes all prescriptions, OTC, herbals, cannabis, and nutritional supplements).: Yes Time Spent With Patient Time with patient: 25 - 35 minutes Subjective Date/time seen: 04/16/24 09:17 Interval history: This is a very pleasant 64-year-old male with gastroesophageal reflux disease, hiatal hernia, hypertension, and hyperlipidemia who presented to the emergency department from home for evaluation of vomiting blood. 04/15: No acute events overnight. Patient is still having some nausea but it is controlled with Zofran. He also reports continued left upper quadrant fullness and abdominal pain. GI saw him today and is recommended a gastric emptying study. 04/16- pt seen and examined today. Plan is to do EGD today, continue with ppi and voquezna. If no findings-> gastric emptying study as outpatient. Review of Systems Review of Systems: 12 systems were reviewed and are negative except for as per HPI. All systems reviewed & are unremarkable except as noted in HPI and below Exam Narrative: General: well appearing, appears stated age. HEENT: normocephalic, atraumatic. Mucous membranes moist. EOMI, PERRLA, bilateral sclera anicteric, no conjunctival injection. Neck supple without JVD, lymphadenopathy, or bruit. Respiratory: clear to auscultation bilaterally. No rales/rhonic/wheezes. Cardiovascular: Regular rate and rhythm, normal S1-S2 upon auscultation. No murmurs, rubs, or clicks. PMI is nondisplaced, capillary refill less than 3 second. Abdomen: Soft, round, no pulsatile masses, + distended and mildly tender to the left upper quadrant. No rebound, no guarding. No CVA tenderness, no hepatosplenomegaly. Bowel sounds present to all four quadrants. No high pitch or tinkling sounds, resonant to percussion. Extremities: No cyanosis, clubbing, or edema present. Pulses are palpable 2/2. Active ROM to all four extremities. Neuro: Alert and orientated x 4. PERRLA. Cranial nerves 2-12 intact without focal deficit. Skin: Warm, dry, and intact, without rash, erythema, or lesion. Areas
[2024-04-16] MEDS: LACTATED RINGERS 1,000 ML 150 ML IV CONT (09:20)
--- NOTE | 2024-04-16 09:38 | WPDANESEPPF ---
Anes - Initial Pre Proc Eval Procedure: Operation Date: 04/16/24 16:30 Proposed Procedures p Esophagogastroduodenoscopy - Joe Delgado MD Date/Time: 04/16/24 09:38 Surgeon: Twila Tee APRN Pre Op Diagnosis: Upper GI Bleed Patient Data Age: 64 Gender: M Height: 1.8 m Weight: 90.2 kg Last Vital Signs Temp 97.4 F L 04/16/24 05:29 Pulse 103 H 04/16/24 05:29 Resp 16 04/16/24 05:29 BP 147/93 H 04/16/24 05:29 Pulse Ox 97 04/16/24 05:29 O2 Del Method Room Air 04/15/24 09:10 Allergies Allergy/AdvReac Type Severity Reaction Status Date / Time No Known Allergies Allergy Verified 04/16/24 09:14 Home Medications Medication Instructions Recorded Confirmed Type tadalafil 5 mg tablet 5 mg PO PRN PRN Erectile 02/02/20 04/14/24 History Dysfunction testosterone cypionate 100 mg/mL 50 mg IM WEEKLY 02/02/20 04/14/24 History intramuscular oil lovastatin 20 mg tablet 20 mg PO DAILY 06/26/23 04/14/24 History olmesartan 40 mg tablet 40 mg PO DAILY 06/26/23 04/14/24 History ferric maltol 30 mg capsule 30 mg PO BID 04/14/24 04/14/24 History (Accrufer) tirzepatide (weight loss) 15 15 mg subcut WEEKLY 04/14/24 04/14/24 History mg/0.5 mL subcutaneous pen injector (Zepbound) vonoprazan 20 mg tablet 20 mg PO DAILY 04/14/24 04/14/24 History Laboratory Tests 04/15/24 04/16/24 21:33 04:33 WBC 11.4 H K/mm3 (4.5-10.0) RBC 5.91 M/mm3 (4.6-6.20) Hgb 18.3 H g/dL 18.2 H g/dL (14.0-18.0) (14.0-18.0) Hct 54.9 H % 54.7 H % (42.0-52.0) (42.0-52.0) MCV 92.6 fl (80-100) MCH 30.8 pg (26-34) MCHC 33.3 g/dl (32-36) RDW 13.3 % (11.5-14.5) Plt Count 215 k/mm3 (150-375) MPV 9.4 fl (7.4-10.4) Immature Gran % (Auto) 0.5 % (0-0.5) Neut % (Auto) 78.9 H % (45.5-73.1) Lymph % (Auto) 12.1 L % (18.3-44.2) [place] % (Auto) 7.7 % (2.6-8.5) Eos % (Auto) 0.4 % (0-4.4) Baso % (Auto) 0.4 % (0.2-1.2) Lymph # (Auto) 1.38 K/mm3 (0.9-3.2) [place] # (Auto) 0.9 H K/mm3 (0.1-0.6) Eos # (Auto) 0.0 K/mm3 (0-0.3) Baso # (Auto) 0.0 K/mm3 (0.0-0.1) Abs Immat Gran (auto) 0.06 H K/mm3 (0.00-0.031) Absolute Neuts (auto) 9.0 H K/mm3 (1.3-6.7) Absolute Nucleated RBC 0.000 K/mm3 (0.0-0.012) Nucleated RBC % 0.0 % (0.0-0.2) Sodium 135 L mmol/L (137-145) Potassium 4.8 mmol/L (3.4-5.0) Chloride 97 L mmol/L (98-107) Carbon Dioxide 24 mmol/L (22-30) Anion Gap 14 H mmol/L (4-12) BUN 36 H mg/dL (9-20) Creatinine 1.20 mg/dL (0.7-1.3) Estim Creat Clear Calc 59 ml/min Estimated GFR > 60 (59 - ) Glucose 96 mg/dL (65-110) Calcium 8.9 mg/dL (8.4-10.2) Magnesium 2.3 mg/dL (1.6-2.3) Total Bilirubin 1.1 mg/dL (0.2-1.3) AST 24 U/L (17-59) ALT 24 U/L (6-50) Alkaline Phosphatase 46 U/L (38-126) Total Protein 9.0 H g/dL (6.3-8.2) Albumin 4.9 g/dL (3.5-5.1) Patient hx anesthesia problems: none Family hx anesthesia problems: none Results Review: All pre-operative results and documents have been reviewed as part of the pre-operative evaluation. [facility] Past Medical History Medical History (Updated 04/15/24 @ 10:18 by Tory Paz APRN) Gastroesophageal reflux disease Hiatal hernia Hyperlipidemia Hypertension Surgical History Surgical History (Updated 04/14/24 @ 22:38 by Cristina Jean PA-C) History of bilateral inguinal hernia repair History of colonoscopy with polypectomy History of open reduction and internal fixation (ORIF) procedure Right ankle. History of vasectomy Family History Family History Grandparent Family history of alcoholism Family history of lung cancer Family
--- NOTE | 2024-04-16 09:50 | SUR.OPER ---
Dr. Perez called back to procedure room per Lico MCGOVERN due to patient beginning to vomit shortly after EGD start. Lico wanting to intubate.
--- NOTE | 2024-04-16 10:14 | SUR.OPER ---
Dr. Petty updating significant other, Ewa, about procedure.
--- NOTE | 2024-04-16 10:25 | SUR.OPER ---
Stat chest xray was verbally ordered by Dr. Perez during procedure. Order placed by myself.
[2024-04-16] MEDS: MIDAZOLAM 100MG/NS 100ML(*CRX) 100 MG/100 ML BAG IV CONT ×2 (11:00→12:46)
[2024-04-16] MEDS: FENTANYL 2,500MCG/NS250ML(*CRX 2,500 MCG/250 ML BAG IV CONT (11:00)
--- NOTE | 2024-04-16 11:15 | P.PCNBED_ITS ---
Procedures Intubation Intubation Date: 04/16/24 Intubation Time: 11:15 Consent: Patient arrived from the GI suite with a 6.5 ETT, patient was not getting sufficient tidal volumes as there was a big air leak even after putting significant amount of air in the ETT balloon. I decided to reintubate the gentleman with a size 8 ET tube as he could get sufficient tidal volumes and adequate gas exchange The NG tube the patient came up with was in the trachea, this was pulled out. A new OG tube was inserted with assistance of a glide scope in the esophagus and stomach A pre-procedural Time-Out was completed immediately before starting the p rocedure and confirmed: Patient Identification, Site, Procedure, Patient Position and the Availability of Requisite Equipment: Yes Sedative: etomidate Paralytic: rocuronium Laryngoscope: fiber optic video scope Assist device used: fiber optic device ET tube size: 8 Tube secured depth (cm): 24 Tube secured location: lips Patient tolerated procedure: well Intubation complications: none
--- NOTE | 2024-04-16 11:19 | WPDCNINT ---
Assessment and Plan Assessment and plan (1) Acute respiratory failure: Code(s): J96.00 - Acute respiratory failure, unspecified whether with hypoxia or hypercapnia Status: Acute Assessment and Plan: Patient initially presented to the ED on 04/14 with complains of hematemesis, on 04/16 he had upper endoscopy, during which he aspirated gastric contents into the lungs, O2 sats dropped to the 50s, anesthesia intubated the patient with size 6.5 ETT. Patient was transferred to the ICU -upon arrival to the ICU, once he was placed on the ventilator, patient was not getting adequate tidal volumes and a large air leak despite putting in a lot of air in the ETT balloon. I decided to reintubate the patient with a size 8.0 ET tube. At that time I noted that the NG tube was in trachea, which was pulled out. A new OG tube was reinserted using a glide scope in the stomach. -04/16; intubated -intubated likely related to aspiration -chest x-ray reviewed -started on Zosyn (04/16) -ordered bronchodilators -sedated with propofol, Versed infusion . Maintain RASS of 0 to -2, daily SAT and SBT (2) Acute upper GI bleed: Code(s): K92.2 - Gastrointestinal hemorrhage, unspecified Status: Acute Assessment and Plan: Upper GI bleed/hematemesis -appreciate GI evaluation, most likely presentation triggered by use of GLP-1 -hemoglobin has been stable -continue Protonix IV q.12 hours, sucralfate -hemoglobin is stable, continue to monitor 04/16: Upper endoscopy Gastric retention with large amount of food or Bezoar were was seen in the esophagus and the stomach, patient also had esophagitis with moderate edematous change most likely from food stasis. Moderate gastritis was seen in the stomach along with moderate erythematous and edematous changes, no ulcers. The bowel and 2nd portion of duodenum was normal with no ulcers or masses. (3) Gastroesophageal reflux disease: Qualifiers: Esophagitis presence: esophagitis presence not specified Qualified Code(s): K21.9 - Gastro-esophageal reflux disease without esophagitis Code(s): K21.9 - Gastro-esophageal reflux disease without esophagitis Status: Acute Assessment and Plan: Continue PPI and sucralfate (4) Hyperlipidemia: Code(s): E78.5 - Hyperlipidemia, unspecified Status: Acute Assessment and Plan: Continue atorvastatin (5) Hypertension: Code(s): I10 - Essential (primary) hypertension Status: Acute Assessment and Plan: Hold olmesartan (6) Nausea & vomiting: Qualifiers: Vomiting type: hematemesis Qualified Code(s): K92.0 - Hematemesis Code(s): R11.2 - Nausea with vomiting, unspecified Status: Acute Assessment and Plan: OG tube in place, continue p.r.n. Zofran -patient was also given Reglan x1 in the endoscopy suite Plan DVT prophylaxis: SCDs, no chemoprophylaxis secondary to hematemesis Stress ulcer prophylaxis: Protonix Nutrition: NPO for now Code Status: Full code Critical Care Time Spent: 55 minutes Due to a high probability of clinically significant, life threatening deterioration, the patient required my highest level of preparedness to intervene emergently and I personally spent this critical care time directly and personally managing the patient. This critical care time included obtaining a history; examining the patient; pulse oximetry; ordering and review of studies; arranging urgent treatment with development of a management plan; evaluation of patient's response to treatment; frequent reassessment; and discussions with other providers. It was exclusive of separately billable procedures and treating other patients and teaching time. Please see Assessment and Plan section and the rest of the note for further information on patient assessment and treatment This dictation may have been done utilizing a voice recognition system. Attempts have been made to correct err
[2024-04-16] MEDS: ROCURONIUM BROMIDE 50 MG/5 ML VIAL IV PUSH ×2 (11:24→13:22)
[2024-04-16] MEDS: ETOMIDATE 20 MG/10 ML AMPUL IV PUSH (11:24)
[2024-04-16] MEDS: PROPOFOL IV EMULSION 100 ML 2.71 MG IV CONT (11:40)
[2024-04-16 11:56] LABS: Triglycerides 165 mg/dL (<150)
[2024-04-16] MEDS: SUCRALFATE 1 GM TABLET PO ×3 (11:58→20:53)
[2024-04-16 12:23] LABS: Alveolar/Arterial O2 Gradient 595.6 mmHg; Base Excess ABG -5.5 mEq/l (+/-2.0); Carboxyhemoglobin 0.3 % THb (0-2.0); Fractional Inspired Oxygen 100 %; HCO3 ABG 19.1 mEq/l (22.0-26.0); Methemoglobin ABG 0.6 %THb (0-1.5); Oxygen Content ABG 25.9 %vol (16.0-22.0); Oxygen Saturation ABG 95.6 % (95.0-100.0); Oxyhemoglobin 94.5 % THb (90.0-100.0); PCO2 ABG 35.8 mmHg (35.0-45.0); PO2 ABG 81.6 mmHg (80.0-100.0); PO2 FiO2 Ratio Arterial Blood 0.82 %; Reduced Hemoglobin 4.6 %THb (0-5.0); Total Hemoglobin 19.5 g/dL (12.0-18.0); pH ABG 7.346 (7.350-7.450)
[2024-04-16 12:26] LABS: Device VENTILATOR; Site Drawn RIGHT BRACHIAL
[2024-04-16 12:27] LABS: Arterial Blood Gas PEEP 5 cmH2O; Arterial Blood Gas Tidal Volume 500 ml; Arterial Blood Gas Vent Mode CMV; Arterial Blood Gas Ventilator rate 18 /MIN
[2024-04-16] MEDS: MIDAZOLAM HCL (*CRX) 2 MG/2 ML VIAL IV PUSH ×3 (12:46→22:50)
[2024-04-16] MEDS: DEXTROSE 5%/LACTATED RINGERS 1,000 ML 75 ML IV CONT (12:56)
[2024-04-16] MEDS: PIPERACILLN/TAZ 3.375GM/NS50ML 3.375 GM/50 ML BAG IVPB ×2 (12:56→17:16)
[2024-04-16] MEDS: fentaNYL CITRATE INJ (*CRX) 100 MCG/2 ML VIAL IV PUSH (13:15)
[2024-04-16] MEDS: FENTANYL 2,500MCG/NS250ML(*CRX 2,500 MCG/250 ML BAG 10 MCG IV CONT (13:16)
[2024-04-16] MEDS: LEVALBUTEROL NEB 1.25 MG/3 ML 0.63 MG INHALATION ×2 (13:21→20:08)
[2024-04-16] MEDS: IPRATROPIUM BR 0.02% INH SOLN 0.5 MG/2.5 ML VIAL INHALATION ×2 (13:21→20:08)
[2024-04-16] MEDS: ACETAMINOPHEN 500 MG TABLET PO (13:37)
--- NOTE | 2024-04-16 13:40 | WPDPN ---
Subjective Date/time seen: 04/16/24 13:40 Interval history: pt was not seen. When i made my rounds, he already went to have EGD and went to ICU straight from there. Objective Data Vital Signs Vital Signs: Vital Signs - 24 hr 04/15/24 14:00 04/15/24 16:00 04/15/24 21:14 Temperature 97.8 F 98.2 F Pulse Rate 87 93 90 Respiratory Rate 18 16 Blood Pressure 152/98 H 143/82 H Pulse Oximetry 97 96 Oxygen Delivery Fraction of Inspired Oxygen 04/15/24 20:00 04/16/24 00:00 04/16/24 04:00 Temperature Pulse Rate 106 H 110 H 90 Respiratory Rate Blood Pressure Pulse Oximetry Oxygen Delivery Fraction of Inspired Oxygen 04/16/24 05:29 04/16/24 08:00 04/16/24 08:00 Temperature 97.4 F L Pulse Rate 103 H 101 H Respiratory Rate 16 Blood Pressure 147/93 H Pulse Oximetry 97 Oxygen Delivery Room Air Fraction of Inspired Oxygen 04/16/24 11:00 04/16/24 11:00 04/16/24 11:00 Temperature Pulse Rate 89 83 83 Respiratory Rate 24 H 24 H Blood Pressure Pulse Oximetry 100 Oxygen Delivery Mechanical Ventilation Fraction of Inspired Oxygen 100 04/16/24 11:40 04/16/24 11:41 04/16/24 11:43 Temperature Pulse Rate 86 84 84 Respiratory Rate 26 H 23 H 23 H Blood Pressure Pulse Oximetry Oxygen Delivery Fraction of Inspired Oxygen 04/16/24 11:45 04/16/24 11:50 04/16/24 11:55 Temperature Pulse Rate 79 84 87 Respiratory Rate 23 H 22 H 20 Blood Pressure Pulse Oximetry Oxygen Delivery Fraction of Inspired Oxygen 04/16/24 12:00 04/16/24 12:05 04/16/24 12:15 Temperature Pulse Rate 80 86 85 Respiratory Rate 23 H 20 20 Blood Pressure Pulse Oximetry Oxygen Delivery Fraction of Inspired Oxygen 04/16/24 12:30 04/16/24 12:46 04/16/24 13:16 Temperature Pulse Rate 95 97 112 H Respiratory Rate 31 H 28 H 22 H Blood Pressure Pulse Oximetry Oxygen Delivery Fraction of Inspired Oxygen 04/16/24 13:15 04/16/24 13:24 04/16/24 13:16 Temperature Pulse Rate 118 H 119 H 120 H Respiratory Rate 31 H 18 31 H Blood Pressure Pulse Oximetry Oxygen Delivery Fraction of Inspired Oxygen 04/16/24 13:37 04/16/24 13:39 Temperature 100.6 F H Pulse Rate 124 H Respiratory Rate 20 Blood Pressure Pulse Oximetry Oxygen Delivery Fraction of Inspired Oxygen Intake/Output Intake/Output: Intake & Output 04/13/24 04/14/24 04/15/24 04/16/24 23:59 23:59 23:59 23:59 Intake Total 1745 1325.1 Output Total 300 Balance 1745 1025.1 Meds/Results Medications: Active Medications Generic Name Dose Route Start Last Admin Trade Name Freq PRN Reason Stop Dose Admin Acetaminophen 500 mg 04/15/24 08:26 04/16/24 13:37 Acetaminophen 500 Mg Tablet PO 500 mg Q4H PRN Administration Mild Pain (1-3) or Fever Dextrose/Lactated Ringer's 1,000 mls @ 75 mls/hr 04/16/24 12:20 04/16/24 12:56 Dextrose 5%/Lactated Ringers IV CONT 75 mls/hr .[id number] ZENIA Administration Midazolam HCl 100 mg in 100 mls @ 4 mls/hr 04/16/24 12:40 04/16/24 13:15 Versed 100 Mg/Ns 100 Ml IV CONT 4 mg/hr .Q25H ZENIA 4 mls/hr Titration Protocol 4 MG/HR Piperacillin/Tazobactam/Dextrose 3.375 gm in 50 mls @ 100 mls/hr 04/16/24 12:45 04/16/24 13:27 Zosyn 3.375 Gm/Ns 50 Ml IVPB Infused Q6HR ZENIA Infusion Fentanyl Citrate 2,500 mcg in 250 mls @ 10 mls/hr 04/16/24 13:15 04/16/24 13:16 Fentanyl 2,500 Mcg/Ns 250 Ml IV CONT 100 mcg/hr .Q25H ZENIA 10 mls/hr Administration Protocol 100 MCG/HR Ipratropium Sesser 0.5 mg 04/16/24 14:00 04/16/24 13:21 Ipratropium Br 0.02% Inh Soln 0.5 Mg/2.5 Ml Vial INHALATION 0.5 mg Q6HRT ZENIA Administration Levalbuterol HCl 0.63 mg 04/16/24 14:00 07/17/24 13:21 Levalbuterol Neb 1.25 Mg/3 Ml INHALATION 0.63 mg Q6HRT ZENIA Administration Lovastatin 20 mg 04/15/24 09:00 04/16/24 08:37 Lovas
[2024-04-16] MEDS: LACTATED RINGERS 1,000 ML 999 ML IV CONT ×2 (13:50→21:32)
[2024-04-16 14:50] LABS: Basophils Percent Auto 1.4 % (0.2-1.2); Eosinophils Percent Auto 0.5 % (0-4.4); Hematocrit 51.9 % (42.0-52.0); Hemoglobin 17.4 g/dL (14.0-18.0); Lymphocytes Absolute Auto 0.51 K/mm3 (0.9-3.2); Lymphocytes Percent Auto 23.2 % (18.3-44.2); Mean Corpuscular HGB Conc 33.5 g/dl (32-36); Mean Corpuscular Hemoglobin 30.8 pg (26-34); Mean Corpuscular Volume 91.9 fl (80-100); Mean Platelet Volume 9.4 fl (7.4-10.4); Monocytes Absolute Auto 0.1 K/mm3 (0.1-0.6); Monocytes Percent Auto 2.7 % (2.6-8.5); Neutrophils Absolute Auto 1.6 K/mm3 (1.3-6.7); Neutrophils Percent Auto 72.2 % (45.5-73.1); Platelet Count Result 170 k/mm3 (150-375); Red Blood Count 5.65 M/mm3 (4.6-6.20); Red Cell Distribution Width 13.2 % (11.5-14.5); White Blood Count 2.2 K/mm3 (4.5-10.0)
[2024-04-16 14:59] LABS: Lactic Acid Reflex 2.2 mmol/L (0.7-2.0)
--- NOTE | 2024-04-16 16:08 | PC.NURSE ---
Blood cultures not ordered prior to administering Zosyn per Dr. Ponce due to known aspiration.
[2024-04-16] MEDS: ACETAMINOPHEN 650 MG SUPPOSITORY RECTAL (16:31)
[2024-04-16 16:45] LABS: Alanine Aminotransferase 21 U/L (6-50); Albumin Level 3.4 g/dL (3.5-5.1); Alkaline Phosphatase 32 U/L (38-126); Anion Gap 11 mmol/L (4-12); Aspartate Amino Transferase 27 U/L (17-59); Bilirubin,Total 2.1 mg/dL (0.2-1.3); Blood Urea Nitrogen 41 mg/dL (9-20); CRP 1.1 mg/dL (<1.0); Calcium 7.8 mg/dL (8.4-10.2); Carbon Dioxide 22 mmol/L (22-30); Chloride 100 mmol/L (98-107); Creatine Kinase 76 U/L (55-170); Estimated CRCL calculation 55 ml/min; Estimated Glomerular Filt Rate 56; Glucose 104 mg/dL (65-110); Potassium 3.6 mmol/L (3.4-5.0); Sodium 133 mmol/L (137-145)
[2024-04-16] MEDS: NOREPINEPHRINE 8 MG/D5W 250 ML 8 MG/250 ML BAG 18.75 MG IV CONT (17:10)
[2024-04-16 17:44] LABS: Reflex Lactic Acid Yes or No Add Lactic
--- NOTE | 2024-04-16 17:54 | PC.NURSE ---
Per Marla his daughter Sandra is able to have any information on her dad if she calls. Her number is [phone]
[2024-04-16 18:53] LABS: Lactic Acid 2.9 mmol/L (0.7-2.0)
[2024-04-16] MEDS: VASOPRESSIN INJ 100 UNITS in DEXTROSE 5% 95 ML IV CONT (20:33)
[2024-04-16] MEDS: PANTOPRAZOLE SODIUM IV 40 MG VIAL IV PUSH (20:53)
[2024-04-16] MEDS: SENNA/DOCUSATE SODIUM TABLET 1 TAB PO (20:53)
[2024-04-16] MEDS: MINERAL OIL/WHITE PETROLATUM OINTMENT 1 APPLIC EACH EYE (20:53)
[2024-04-16] MEDS: CENTRAL LINE FLUSH 10 ML IV PUSH (20:54)
[2024-04-16] MEDS: HYDROCORTISONE SODIUM SUCCINATE 100 MG/2 ML VIAL IV PUSH (20:54)
--- NOTE | 2024-04-16 21:19 | PC.NURSE ---
Patient continues to fight ventilator and try to move self in bed and remains very agitated. Dr. Ponce updated of situation and received orders for 2 mg IVP Versed once and to start Neosynephrine as blood pressure continues to be low with Levophed and Vasopressin maxed out. Will continue to monitor.
[2024-04-16 21:45] LABS: Alveolar/Arterial O2 Gradient 608.2 mmHg; Base Excess ABG -6.6 mEq/l (+/-2.0); Fractional Inspired Oxygen 100 %; HCO3 ABG 18.1 mEq/l (22.0-26.0); Oxygen Content ABG 22.2 %vol (16.0-22.0); Oxygen Saturation ABG 93.3 % (95.0-100.0); Oxyhemoglobin 92.9 % THb (90.0-100.0); PCO2 ABG 34.5 mmHg (35.0-45.0); PO2 ABG 70.3 mmHg (80.0-100.0); pH ABG 7.338 (7.350-7.450)
[2024-04-16 21:46] LABS: Device VENTILATOR; Modified Allen's Test Pass; Site Drawn RIGHT BRACHIAL
[2024-04-16 21:47] LABS: Arterial Blood Gas PEEP 10 cmH2O; Arterial Blood Gas Tidal Volume 500 ml; Arterial Blood Gas Vent Mode CMV; Arterial Blood Gas Ventilator rate 20 /MIN
[2024-04-16 21:52] LABS: Glucose Point of Care 128 mg/dl (65-105)
[2024-04-16 22:05] LABS: Lactic Acid Reflex 4.4 mmol/L (0.7-2.0)
[2024-04-16] MEDS: SODIUM BICARBONATE 8.4% 50 MEQ/50 ML SYRINGE 100 MEQ IV PUSH (22:37)
[2024-04-16] MEDS: NOREPINEPHRINE 8 MG/D5W 250 ML 8 MG/250 ML BAG 54.38 MG IV CONT (23:23)
[2024-04-16] MEDS: SODIUM BICARBONATE 8.4% 150 MEQ in DEXTROSE 5% 1,000 ML 950 ML 75 MEQ IV CONT (23:32)
[2024-04-17] VITALS (100 sets, daily range): BP systolic 90–151; BP diastolic 58–100; PULSE 88–112; RESP 16–24; TEMP 36.9–38.2; O2SAT 95–100; BMI 28.9
--- NOTE | 2024-04-17 | ECHO_ITS ---
Patient Info Name: Handy Montes Age: 64 years : 1960 Gender: Male Ht: 71 in Wt: 207 lbs BSA: 2.19 m2 HR: 101 bpm BP: 123 / 81 mmHg Heart Rhythm: Sinus Rhythm Technical Quality: Good Exam Date: 04/17/2024 9:02 AM Exam Location: Echo Lab Patient Status: Inpatient Admit Date: 04/14/2024 Staff Ordering Physician: Kunal Ponce MD Chief Counsel: Pablo Almazan RDCS Attending Provider: Twila Tee APRN Referring Physician: Rosario JOVEL; Exam Type: CA echo doppler color flow Study Info Indications - septic shock Complete two-dimensional, color flow and Doppler transthoracic echocardiogram is performed. Summary 1. Complete two-dimensional, color flow and Doppler transthoracic echocardiogram is performed. 2. Left ventricular systolic function is moderately globally reduced, estimated at 40-45%. 3. Left ventricular chamber dimension is mildly enlarged. 4. The left ventricular diastolic function is grade I diastolic dysfunction. 5. No pulmonary hypertension, estimated pulmonary arterial systolic pressure is 13 mmHg. Left Ventricle Tissue doppler E/e' is not performed. Left ventricular systolic function is moderately globally reduced, estimated at 40-45%. Left ventricular chamber dimension is mildly enlarged. The left ventricular diastolic function is grade I diastolic dysfunction. Right Ventricle Right ventricular systolic function is normal and with normal TAPSE 2.0 cm. Right ventricular chamber dimension is normal. Left Atria Left atrial chamber dimension is normal. Right Atria Right atrial chamber dimension is normal. Aortic Valve The aortic valve is trileaflet. There is no aortic valve stenosis. There is no aortic valve regurgitation. Pulmonic Valve There is no pulmonic regurgitation. Mitral Valve There is no mitral valve stenosis. There is no mitral valve regurgitation. Tricuspid Valve There is no tricuspid valve regurgitation. No pulmonary hypertension, estimated pulmonary arterial systolic pressure is 13 mmHg. Pericardium/Pleural There is no pericardial effusion. Inferior Vena Cava Normal inferior vena cava with >50% collapse upon inspiration consistent with normal right atrial pressure, 5 mmHg. Aorta The aortic root size at the sinus of Valsalva is normal. Left Ventricular Outflow Tract Name Value Normal LVOT 2D LVOT Diameter 2.0 cm LVOT Doppler LVOT Peak Gradient 3 mmHg LVOT Mean Gradient 2 mmHg LVOT VTI 16 cm LVOT VTI/AV VTI Ratio 0.9 LVOT Stroke Volume 51 ml LVOT CO 4.3 l/min LVOT CI 2.0 l/min/m2 Pulmonic Valve Name Value Normal PV Doppler PV Peak Gradient 1 mmHg Mitral Valve Name
[2024-04-17] MEDS: VANCOMYCIN 1,250 MG/NS 250 ML 1,250 MG/250 ML BAG 166.67 MG IVPB (00:15)
[2024-04-17] MEDS: PIPERACILLN/TAZ 3.375GM/NS50ML 3.375 GM/50 ML BAG IVPB ×5 (00:17→23:31)
[2024-04-17] MEDS: VANCOMYCIN 1,000 MG/NS 250 ML 1,000 MG/250 ML BAG 250 MG IVPB (01:40)
[2024-04-17] MEDS: LEVALBUTEROL NEB 1.25 MG/3 ML 0.63 MG INHALATION ×4 (02:11→20:18)
[2024-04-17] MEDS: IPRATROPIUM BR 0.02% INH SOLN 0.5 MG/2.5 ML VIAL INHALATION ×4 (02:11→20:18)
[2024-04-17] MEDS: NOREPINEPHRINE 8 MG/D5W 250 ML 8 MG/250 ML BAG 52.5 MG IV CONT (04:12)
[2024-04-17 04:47] LABS: Base Excess ABG -3.2 mEq/l (+/-2.0); Carboxyhemoglobin 0.1 % THb (0-2.0); Fractional Inspired Oxygen 100 %; HCO3 ABG 22.2 mEq/l (22.0-26.0); Methemoglobin ABG 0.4 %THb (0-1.5); Oxygen Content ABG 22.5 %vol (16.0-22.0); Oxygen Saturation ABG 99.1 % (95.0-100.0); Oxyhemoglobin 98.7 % THb (90.0-100.0); PCO2 ABG 41.5 mmHg (35.0-45.0); PO2 ABG 174.5 mmHg (80.0-100.0); PO2 FiO2 Ratio Arterial Blood 1.75 %; Reduced Hemoglobin 0.8 %THb (0-5.0); pH ABG 7.347 (7.350-7.450)
[2024-04-17 04:48] LABS: Modified Allen's Test Pass; Site Drawn LEFT BRACHIAL
[2024-04-17 04:49] LABS: Arterial Blood Gas PEEP 10 cmH2O; Arterial Blood Gas Vent Mode CMV; Arterial Blood Gas Ventilator rate 20 /MIN; Device VENTILATOR
[2024-04-17 04:50] LABS: Arterial Blood Gas Tidal Volume 500 ml
[2024-04-17 05:00] LABS: Hemoglobin 15.2 g/dL (14.0-18.0); Mean Corpuscular Hemoglobin 30.8 pg (26-34); Mean Corpuscular Volume 93.1 fl (80-100); Platelet Count Result 197 k/mm3 (150-375); Red Blood Count 4.94 M/mm3 (4.6-6.20); Red Cell Distribution Width 13.3 % (11.5-14.5); White Blood Count 12.6 K/mm3 (4.5-10.0)
[2024-04-17 05:11] LABS: INR 1.2; Prothrombin Time 15.4 Seconds (11.1-14.7)
[2024-04-17 05:12] LABS: Partial Thromboplastin Time 33.8 Seconds (22.3-36.8)
[2024-04-17 05:18] LABS: Lactic Acid Reflex 4.2 mmol/L (0.7-2.0)
[2024-04-17] MEDS: HYDROCORTISONE SODIUM SUCCINATE 100 MG/2 ML VIAL IV PUSH ×3 (05:20→21:13)
[2024-04-17] MEDS: SUCRALFATE 1 GM TABLET PO ×2 (05:20→11:02)
[2024-04-17] MEDS: CENTRAL LINE FLUSH 10 ML IV PUSH ×3 (05:20→21:15)
[2024-04-17 05:43] LABS: Alanine Aminotransferase 23 U/L (6-50); Albumin Level 3.1 g/dL (3.5-5.1); Alkaline Phosphatase 26 U/L (38-126); Anion Gap 13 mmol/L (4-12); Aspartate Amino Transferase 32 U/L (17-59); Bilirubin,Total 4.7 mg/dL (0.2-1.3); Blood Urea Nitrogen 43 mg/dL (9-20); Calcium 7.4 mg/dL (8.4-10.2); Carbon Dioxide 24 mmol/L (22-30); Chloride 96 mmol/L (98-107); Estimated CRCL calculation 36 ml/min; Estimated Glomerular Filt Rate 34; Glucose 170 mg/dL (65-110); Magnesium 1.6 mg/dL (1.6-2.3); Phosphorus 3.6 mg/dL (2.5-4.5); Potassium 3.3 mmol/L (3.4-5.0); Sodium 133 mmol/L (137-145)
[2024-04-17 05:59] LABS: Band Neutrophils Percent 22 % (0-6); Lymphocytes Absolute Manual 1.13 K/mm3 (1.1-4.5); Monocytes Absolute Manual 1.13 K/mm3 (0.1-0.90); Monocytes Percent Manual 9 % (3-9); Neutrophils Absolute Manual 10.33 K/mm3 (1.3-6.7); Neutrophils Percent Manual 60 % (46-73); Total Cells Counted 100
[2024-04-17 06:00] LABS: Platelet Estimate Adequate (Adequate); Schistocytes None Seen
[2024-04-17 06:09] LABS: MRSA (PCR) NOT DETECTED (NOT DETECTE)
[2024-04-17] MEDS: ALBUMIN HUMAN 25% 25 GM/100 ML 100 ML IVPB ×4 (07:55→23:31)
[2024-04-17 07:56] LABS: Reflex Lactic Acid Yes or No Add Lactic
[2024-04-17] MEDS: MIDAZOLAM 100MG/NS 100ML(*CRX) 100 MG/100 ML BAG IV CONT (08:01)
[2024-04-17] MEDS: CALCIUM GLUC 2,000 MG/NS 100ML 2,000 MG/100 ML BAG 100 MG IVPB (08:04)
[2024-04-17] MEDS: KCL 40 MEQ/WATER 100 ML 100 ML 25 ML IVPB (08:05)
[2024-04-17] MEDS: MAGNESIUM SULF 2 GM/WATER 50ML 2 GM/50 ML BAG IVPB (08:07)
[2024-04-17] MEDS: PANTOPRAZOLE SODIUM IV 40 MG VIAL IV PUSH ×2 (08:07→21:13)
[2024-04-17] MEDS: MINERAL OIL/WHITE PETROLATUM OINTMENT 1 APPLIC EACH EYE ×2 (08:08→21:14)
[2024-04-17 09:09] LABS: Lactic Acid 3.7 mmol/L (0.7-2.0)
--- NOTE | 2024-04-17 09:16 | PHAR ---
The patient's home med of VTAMA (TAPINAROF) TOPICAL CREAM has been verified.
[2024-04-17] MEDS: NOREPINEPHRINE 8 MG/D5W 250 ML 8 MG/250 ML BAG 46.88 MG IV CONT (09:21)
--- NOTE | 2024-04-17 09:24 | WPDINTPN ---
Progress Note: A&P Assessment and Plan (1) Acute respiratory failure: Code(s): J96.00 - Acute respiratory failure, unspecified whether with hypoxia or hypercapnia Status: Acute Assessment and Plan: Patient initially presented to the ED on 04/14 with complains of hematemesis, on 04/16 he had upper endoscopy, during which he aspirated gastric contents into the lungs, O2 sats dropped to the 50s, anesthesia intubated the patient with size 6.5 ETT. Patient was transferred to the ICU -upon arrival to the ICU, once he was placed on the ventilator, patient was not getting adequate tidal volumes and a large air leak despite putting in a lot of air in the ETT balloon. I decided to reintubate the patient with a size 8.0 ET tube. At that time I noted that the NG tube was in trachea, which was pulled out. A new OG tube was reinserted using a glide scope in the stomach. -04/16; intubated -respiratory failure likely related to aspiration -chest x-ray and ABGs reviewed, ventilator adjusted, will wean FiO2 to maintain O2 sats > a 92% -started on Zosyn and vancomycin (04/16) -continue bronchodilators -sedated with fentanyl, Versed infusion . Maintain RASS of 0 to -2, daily SAT and SBT 04/17/2024: CT scan of the chest/abdomen/pelvis, noncontrast No evidence of bowel perforation. Extensive left lung consolidation, compatible with pneumonia. Mild patchy consolidation right lung base consolidation pneumonia versus atelectasis. Probable gallbladder sludge. Questionable mild wall thickening of the hepatic flexure and proximal transverse colon. Correlate for infectious/inflammatory colitis. Enlarged prostate gland (2) Septic shock: Code(s): A41.9 - Sepsis, unspecified organism; R65.21 - Severe sepsis with septic shock Status: Acute Assessment and Plan: Patient developed hypotension, acute kidney injury, lactic acidosis and is in septic shock -patient received adequate IV fluids -currently on sodium bicarb infusion which will be discontinued -albumin for intravascular volume repletion -continue antibiotics as above -04/16: Blood cultures have been obtained and pending -04/17: Sputum cultures ordered -leukocytosis with bandemia -lactic acid trending down, continue to monitor -patient remains on Levophed, Brian-Synephrine, vasopressin. Maintain MAP > 65 mmHg or SBP > 110 mmHg at all times for adequate end organ perfusion (3) Acute kidney injury: Code(s): N17.9 - Acute kidney failure, unspecified Status: Acute Assessment and Plan: Acute kidney injury likely related to septic shock, hypotension, hypovolemia -patient adequately fluid-resuscitated -on sodium bicarb infusion which will be discontinued this morning -albumin for intravascular volume repletion -will obtain urine lytes, renal ultrasound, CK levels and urine eosinophil -continue to monitor urine output, electrolytes and renal function (4) Acute upper GI bleed: Code(s): K92.2 - Gastrointestinal hemorrhage, unspecified Status: Acute Assessment and Plan: Upper GI bleed/hematemesis -appreciate GI evaluation, most likely presentation triggered by use of GLP-1 -hemoglobin has been stable -continue Protonix IV q.12 hours, sucralfate -hemoglobin is stable, continue to monitor 04/16: Upper endoscopy Gastric retention with large amount of food or Bezoar were was seen in the esophagus and the stomach, patient also had esophagitis with moderate edematous change most likely from food stasis. Moderate gastritis was seen in the stomach along with moderate erythematous and edematous changes, no ulcers. The bowel and 2nd portion of duodenum was normal with no ulcers or masses. (5) Gastroesophageal reflux disease: Qualifiers: Esophagitis presence: esophagitis presence not specified Qualified Code(s): K21.9 - Gastro-esophageal reflux disease without esophagitis Code(s): K21.9 - Gastro-esophageal reflux disease without esophagitis
[2024-04-17 09:53] LABS: Creatine Kinase 127 U/L (55-170)
[2024-04-17 10:41] LABS: Creatinine Urine 84.9 mg/dL
[2024-04-17 10:43] LABS: Potassium Urine Random 33.3 meq/L; Sodium Urine Random 139 meq/L
[2024-04-17 11:06] LABS: Eosinophil Urine None Seen % (None Seen); Urine Eos QC NAO
[2024-04-17] MEDS: FENTANYL 2,500MCG/NS250ML(*CRX 2,500 MCG/250 ML BAG 10 MCG IV CONT (11:33)
--- NOTE | 2024-04-17 13:22 | PM.CNNEP ---
Assessment and Plan Assessment and plan (1) Acute kidney injury: Code(s): N17.9 - Acute kidney failure, unspecified Status: Acute Assessment and Plan: etiology likely multifactorial ATN: prerenal factors hemodynamic instability/shock infection/sepsis hypoxia ARB use prior to admission s/p aggressive fluid resuscitation weaning off bicarb fluids follow-up on urine studies, CPK, and renal ultrasound follow trend of repeat labs and UOP (2) Acute respiratory failure: Code(s): J96.00 - Acute respiratory failure, unspecified whether with hypoxia or hypercapnia Status: Acute Assessment and Plan: secondary to aspiration/aspiration pneumonia on mechanical ventilator support on sedation as well as bronchodilator therapy imaging noted ventilator weaning once more stable (3) Septic shock: Code(s): A41.9 - Sepsis, unspecified organism; R65.21 - Severe sepsis with septic shock Status: Acute Assessment and Plan: as noted by hypotension/hemodynamic instability, LUCILA, elevated WBC, and lactic acidosis s/p IVF resuscitation on vasopressor support (levophed, vasopressin, and christina-synephrine) - wean as tolerated bening weaned off bicarb fluids on antibiotic therapy follow culture data follow trend of hemodynamics (4) Aspiration pneumonia: Code(s): J69.0 - Pneumonitis due to inhalation of food and vomit Status: Acute Assessment and Plan: see #2 CT of chest with extensive left lung consolidation, compatible with pneumonia. Mild patchy consolidation right lung base consolidation pneumonia versus atelectasis. on atibiotic therapy on ventilator support follow respiratory status (5) Acute upper GI bleed: Code(s): K92.2 - Gastrointestinal hemorrhage, unspecified Status: Acute Assessment and Plan: as noted on admission H/H relatively stable suspect triggered by GLP-1 use on IV PPI s/p EGD (on 04/16): Gastric retention with large amount of food or Bezoar were was seen in the esophagus and the tomach, esophagitis with moderate edematous change most likely from food stasis moderate gastritis was seen in the stomach along with moderate erythematous and edematous changes, no ulcers the bowel and 2nd portion of duodenum was normal with no ulcers or masses GI following (6) Nausea & vomiting: Qualifiers: Vomiting type: hematemesis Qualified Code(s): K92.0 - Hematemesis Code(s): R11.2 - Nausea with vomiting, unspecified Status: Acute Assessment and Plan: OG tube in place PRN antiemetics continue supportive therapy Long extensive discussion (> 20 minutes) with the patient's family and friends at bedside with regard to his acute kidney injury/acute renal failure and current interventions/therapy being done in the hopes of trying to improve his overall kidney function. They all appeared to voice understanding. I will continue follow patient with you while he remains hospitalized and make further recommendations as deemed necessary. Thank you for allowing me to participate in the care of this patient. History of Present Illness Reason for Consult Consult date: 04/17/24 Reason for consult: acute renal failure Chief Complaint Chief complaint: Upper GI Bleed History of Present Illness Narrative: All the information that I have obtained is from review of the electronic medical record as well as discussion with the physician/nurses involved in the patient's care as the patient is unable to provide me with any history as he is currently intubated and on mechanical ventilation. The patient is a 64-year-old male with a past medical history as outlined below who initially presented to [facility] Emergency room several days ago with complaints vomiting blood. Apparently, the patient had been having increasing gastroesophageal reflux symptoms for the past few
--- NOTE | 2024-04-17 13:22 | P.CONNP_ITS ---
Assessment and Plan Assessment and plan (1) Acute kidney injury: Code(s): N17.9 - Acute kidney failure, unspecified Status: Acute Assessment and Plan: * etiology likely multifactorial ATN: * prerenal factors * hemodynamic instability/shock * infection/sepsis * hypoxia * ARB use prior to admission * s/p aggressive fluid resuscitation * weaning off bicarb fluids * follow-up on urine studies, CPK, and renal ultrasound * follow trend of repeat labs and UOP (2) Acute respiratory failure: Code(s): J96.00 - Acute respiratory failure, unspecified whether with hypoxia or hypercapnia Status: Acute Assessment and Plan: * secondary to aspiration/aspiration pneumonia * on mechanical ventilator support * on sedation as well as bronchodilator therapy * imaging noted * ventilator weaning once more stable (3) Septic shock: Code(s): A41.9 - Sepsis, unspecified organism; R65.21 - Severe sepsis with septic shock Status: Acute Assessment and Plan: * as noted by hypotension/hemodynamic instability, LUCILA, elevated WBC, and lactic acidosis * s/p IVF resuscitation * on vasopressor support (levophed, vasopressin, and christina-synephrine) - wean as tolerated * bening weaned off bicarb fluids * on antibiotic therapy * follow culture data * follow trend of hemodynamics (4) Aspiration pneumonia: Code(s): J69.0 - Pneumonitis due to inhalation of food and vomit Status: Acute Assessment and Plan: * see #2 * CT of chest with extensive left lung consolidation, compatible with pneumon ia. Mild patchy consolidation right lung base consolidation pneumonia versus atelectasis. * on atibiotic therapy * on ventilator support * follow respiratory status (5) Acute upper GI bleed: Code(s): K92.2 - Gastrointestinal hemorrhage, unspecified Status: Acute Assessment and Plan: * as noted on admission * H/H relatively stable * suspect triggered by GLP-1 use * on IV PPI * s/p EGD (on 04/16): * Gastric retention with large amount of food or Bezoar were was seen in the esophagus and the tomach, * esophagitis with moderate edematous change most likely from food stasis * moderate gastritis was seen in the stomach along with moderate erythematous and edematous changes, no ulcers * the bowel and 2nd portion of duodenum was normal with no ulcers or masses * GI following (6) Nausea & vomiting: Qualifiers: Vomiting type: hematemesis Qualified Code(s): K92.0 - Hematemesis Code(s): R11.2 - Nausea with vomiting, unspecified Status: Acute Assessment and Plan: * OG tube in place * PRN antiemetics * continue supportive therapy Long extensive discussion (> 20 minutes) with the patient's family and friends at bedside with regard to his acute kidney injury/acute renal failure and curren t interventions/therapy being done in the hopes of trying to improve his overall kidney function. They all appeared to voice understanding. I will continue follow patient with you while he remains hospitalized and make further recommendations as deemed necessary. Thank you for allowing me to participate in the care of this patient. History of Present Illness Reason for Consult Consult date: 04/17/24 Reason for consult: acute renal failure Chief Complaint Chief complaint: Upper GI Bleed History of Present Illness Narrative: All the information that I have obtained is from review of the electronic medical record as
--- NOTE | 2024-04-17 15:43 | PM.IMPN ---
Subjective Date/time seen: 04/17/24 15:43 Interval history: pt currently Objective Data Vital Signs Vital Signs: Vital Signs - 24 hr 04/16/24 16:00 04/16/24 16:00 04/16/24 16:00 Temperature Pulse Rate 119 H 119 H Respiratory Rate 20 20 Blood Pressure Pulse Oximetry Oxygen Delivery Mechanical Ventilation Fraction of Inspired Oxygen 100 04/16/24 16:00 04/16/24 16:29 04/16/24 16:31 Temperature 102.5 F H Pulse Rate 123 H Respiratory Rate Blood Pressure Pulse Oximetry 97 Oxygen Delivery Mechanical Ventilation Fraction of Inspired Oxygen 100 100 04/16/24 16:00 04/16/24 16:00 04/16/24 17:09 Temperature 102.2 F H 102.6 F H Pulse Rate 118 H 119 H 118 H Respiratory Rate 21 H 21 H Blood Pressure 92/67 L 68/54 L Pulse Oximetry 96 97 Oxygen Delivery Fraction of Inspired Oxygen 04/16/24 17:16 04/16/24 17:17 04/16/24 17:10 Temperature Pulse Rate 118 H 118 H 120 H Respiratory Rate 21 H 21 H Blood Pressure 68/54 L Pulse Oximetry Oxygen Delivery Fraction of Inspired Oxygen 04/16/24 17:31 04/16/24 18:00 04/16/24 18:00 Temperature 102.2 F H Pulse Rate 119 H 118 H Respiratory Rate 20 Blood Pressure 90/62 L Pulse Oximetry Oxygen Delivery Fraction of Inspired Oxygen 04/16/24 18:00 04/16/24 18:00 04/16/24 18:38 Temperature 102.2 F H Pulse Rate 118 H 118 H 108 H Respiratory Rate 20 20 Blood Pressure 90/62 L 69/54 L Pulse Oximetry 95 Oxygen Delivery Fraction of Inspired Oxygen 04/16/24 19:04 04/16/24 19:31 04/16/24 19:46 Temperature Pulse Rate 106 H 107 H 106 H Respiratory Rate Blood Pressure 83/64 L 82/68 L 83/66 L Pulse Oximetry Oxygen Delivery Fraction of Inspired Oxygen 04/16/24 20:00 04/16/24 20:17 04/16/24 19:32 Temperature 101.3 F H 101.7 F H Pulse Rate 107 H 104 H 106 H Respiratory Rate 17 23 H Blood Pressure 83/63 L 79/52 L 82/68 L Pulse Oximetry 92 94 Oxygen Delivery Fraction of Inspired Oxygen 04/16/24 20:10 04/16/24 19:45 04/16/24 20:00 Temperature 101.6 F H 101.5 F H Pulse Rate 111 H 105 H 107 H Respiratory Rate 17 23 H 26 H Blood Pressure 83/66 L 83/63 L Pulse Oximetry 95 95 Oxygen Delivery Fraction of Inspired Oxygen 04/16/24 20:18 04/16/24 20:16 04/16/24 20:23 Temperature Pulse Rate 104 H 109 H 103 H Respiratory Rate Blood Pressure 79/52 L 79/60 L Pulse Oximetry 96 Oxygen Delivery Mechanical Ventilation Fraction of Inspired Oxygen 100 04/16/24 20:33 04/16/24 20:36 04/16/24 20:00 Temperature Pulse Rate 110 H 106 H 105 H Respiratory Rate 20 Blood Pressure 79/60 L 79/58 L Pulse Oximetry Oxygen Delivery Fraction of Inspired Oxygen 04/16/24 20:00 04/16/24 20:38 04/16/24 20:41 Temperature Pulse Rate 106 H 104 H 111 H Respiratory Rate 20 Blood Pressure 79/58 L 81/60 L Pulse Oximetry Oxygen Delivery Fraction of Inspired Oxygen 04/16/24 20:43 04/16/24 20:46 04/16/24 20:50 Temperature Pulse Rate 118 H 106 H 113 H Respiratory Rate 20 Blood Pressure 81/60 L 80/69 L Pulse Oximetry Oxygen Delivery Fraction of Inspired Oxygen 04/16/24 20:56 04/16/24 21:05 04/16/24 21:11 Temperature 100.8 F H Pulse Rate 118 H 106 H 111 H Respiratory Rate 18 20 20 Blood Pressure 90/59 L Pulse Oximetry 96 Oxygen Delivery Fraction of Inspired Oxygen 04/16/24 21:28 04/16/24 21:45 04/16/24 20:16 Temperature 101.4 F H Pulse Rate 107 H 101 H 109 H Respiratory Rate 19 Blood Pressure 76/59 L 81/66 L 73/57 L Pulse Oximetry 94 Oxygen Delivery Fraction of Inspired Oxygen 04/16/24 20:17 04/16/24 20:24 04/16/24 20:30 Temperature 101.4 F H 101.3 F H 101.2 F H Pulse Rate 103 H 104 H 107 H Respiratory Rate 18 13 16 Blood Pressure 79/52 L 79/60 L 79/60 L Pulse Oximetry 93 88 L 95 Oxygen Delivery Fraction of Inspired Oxygen 04/16/24 20:36 07/1
--- NOTE | 2024-04-17 17:29 | WPDGIPROGNO ---
Progress Note: A&P Assessment and Plan (1) Nausea & vomiting: Qualifiers: Vomiting type: hematemesis Qualified Code(s): K92.0 - Hematemesis Code(s): R11.2 - Nausea with vomiting, unspecified Status: Acute Assessment and Plan: probably triggered by recent use of glp1 large amount of bezoar in esophagus, this was suctioned but also required intubation now in icu received iv reglan, ogt in place (2) Early satiety: Code(s): R68.81 - Early satiety Status: Acute (3) Gastroparesis: Code(s): K31.84 - Gastroparesis Status: Acute Assessment and Plan: probably due to recent glp1 this was discussed with family member this medication should be discontinued also noted esophagitis/gastritis probably from food stasis, on iv protonix now (4) Acute respiratory failure: Code(s): J96.00 - Acute respiratory failure, unspecified whether with hypoxia or hypercapnia Status: Acute Assessment and Plan: intubated, pneumonia on treatment (5) Septic shock: Code(s): A41.9 - Sepsis, unspecified organism; R65.21 - Severe sepsis with septic shock Status: Acute Assessment and Plan: weaning pressors (6) Acute kidney injury: Code(s): N17.9 - Acute kidney failure, unspecified Status: Acute Assessment and Plan: monitor (7) Aspiration pneumonia: Code(s): J69.0 - Pneumonitis due to inhalation of food and vomit Status: Acute Subjective Date/time seen: 04/17/24 17:29 Interval history: yesterday noted large amount of debris/food in esophagus, had emesis and required intubation. Then transferred to ICU, hypotensive but weaning pressors now, also treated for aspiration pneumonia, ogt in place Review of Systems Review of Systems: All systems reviewed & are unremarkable except as noted in HPI and below Exam Narrative: General: Intubated and sedated HEENT:? Pupils are equal and reactive, sclera is clear, ETT in place Neck:? Supple Respiratory:? Coarse breath sounds bilaterally, decreased at bases, adequate air entry, no wheezing Cardiac:? S1-S2 normal, regular rate and rhythm Abdomen:? Soft, nontender, nondistended, hypoactive bowel sound Extremities:? No edema, cyanosis. Pedal pulses are palpable Neuro:? Patient is sedated, intubated, does not open his eyes or follow simple commands Skin:? Warm and dry, no skin lesions Psych:? Unable to assess at this time Objective Data Vital Signs Vital Signs: Vital Signs - 24 hr 04/16/24 17:31 04/16/24 18:00 04/16/24 18:00 Temperature 102.2 F H Pulse Rate 119 H 118 H Respiratory Rate 20 Blood Pressure 90/62 L Pulse Oximetry Oxygen Delivery Fraction of Inspired Oxygen 04/16/24 18:00 04/16/24 18:00 04/16/24 18:38 Temperature 102.2 F H Pulse Rate 118 H 118 H 108 H Respiratory Rate 20 20 Blood Pressure 90/62 L 69/54 L Pulse Oximetry 95 Oxygen Delivery Fraction of Inspired Oxygen 04/16/24 19:04 04/16/24 19:31 04/16/24 19:46 Temperature Pulse Rate 106 H 107 H 106 H Respiratory Rate Blood Pressure 83/64 L 82/68 L 83/66 L Pulse Oximetry Oxygen Delivery Fraction of Inspired Oxygen 04/16/24 20:00 04/16/24 20:17 04/16/24 19:32 Temperature 101.3 F H 101.7 F H Pulse Rate 107 H 104 H 106 H Respiratory Rate 17 23 H Blood Pressure 83/63 L 79/52 L 82/68 L Pulse Oximetry 92 94 Oxygen Delivery Fraction of Inspired Oxygen 04/16/24 20:10 04/16/24 19:45 04/16/24 20:00 Temperature 101.6 F H 101.5 F H Pulse Rate 111 H 105 H 107 H Respiratory Rate 17 23 H 26 H Blood Pressure 83/66 L 83/63 L Pulse Oximetry 95 95 Oxygen Delivery Fraction of Inspired Oxygen 04/16/24 20:18 04/16/24 20:16 04/16/24 20:23 Temperature Pulse Rate 104 H 109 H 103 H Respiratory Rate Blood Pressure 79/52 L 79/60 L Pulse Oximetry 96 Oxygen Delivery Mechanical Ventilation Fraction of Inspired Oxygen 100
[2024-04-17] MEDS: SUCRALFATE SUSP 100 MG/ML 10 ML UDC 1000 MG PO ×2 (17:33→21:13)
[2024-04-17] MEDS: NOREPINEPHRINE 8 MG/D5W 250 ML 8 MG/250 ML BAG 26.25 MG IV CONT (18:00)
[2024-04-17 23:37] LABS: Vancomycin Trough 7.9 ug/mL (10.0-20.0)
[2024-04-18] VITALS (72 sets, daily range): BP systolic 101–149; BP diastolic 57–92; PULSE 73–109; RESP 19–99; TEMP 36.4–38.7; O2SAT 95–99
[2024-04-18] MEDS: VANCOMYCIN 1,500 MG/NS 500 ML 1,500 MG/500 ML BAG 250 MG IVPB (00:03)
[2024-04-18] MEDS: IPRATROPIUM BR 0.02% INH SOLN 0.5 MG/2.5 ML VIAL INHALATION ×4 (02:25→20:30)
[2024-04-18] MEDS: MIDAZOLAM 100MG/NS 100ML(*CRX) 100 MG/100 ML BAG IV CONT (03:51)
[2024-04-18 05:45] LABS: Alveolar/Arterial O2 Gradient 61.2 mmHg; Base Excess ABG 1.7 mEq/l (+/-2.0); Fractional Inspired Oxygen 30 %; HCO3 ABG 26.8 mEq/l (22.0-26.0); Oxygen Saturation ABG 97.6 % (95.0-100.0); Oxyhemoglobin 97.2 % THb (90.0-100.0); PCO2 ABG 43.8 mmHg (35.0-45.0); PO2 ABG 101.2 mmHg (80.0-100.0); PO2 FiO2 Ratio Arterial Blood 3.37 %; Site Drawn RIGHT RADIAL; Total Hemoglobin 13.1 g/dL (12.0-18.0); pH ABG 7.404 (7.350-7.450)
[2024-04-18 05:46] LABS: Arterial Blood Gas PEEP 10 cmH2O; Arterial Blood Gas Tidal Volume 500 ml; Arterial Blood Gas Vent Mode CMV; Arterial Blood Gas Ventilator rate 20 /MIN; Device VENTILATOR; Modified Allen's Test Pass
[2024-04-18] MEDS: CENTRAL LINE FLUSH 10 ML IV PUSH ×3 (05:52→20:22)
[2024-04-18] MEDS: SUCRALFATE SUSP 100 MG/ML 10 ML UDC 1000 MG PO ×4 (05:52→20:04)
[2024-04-18] MEDS: PIPERACILLN/TAZ 3.375GM/NS50ML 3.375 GM/50 ML BAG IVPB ×3 (05:52→17:30)
[2024-04-18] MEDS: HYDROCORTISONE SODIUM SUCCINATE 100 MG/2 ML VIAL IV PUSH (05:52)
[2024-04-18] MEDS: ALBUMIN HUMAN 25% 25 GM/100 ML 100 ML IVPB ×2 (05:52→12:19)
[2024-04-18 06:05] LABS: Hematocrit 35.4 % (42.0-52.0); Mean Corpuscular HGB Conc 33.9 g/dl (32-36); Mean Corpuscular Hemoglobin 30.9 pg (26-34); Mean Corpuscular Volume 91.2 fl (80-100); Mean Platelet Volume 10.1 fl (7.4-10.4); Platelet Count Result 128 k/mm3 (150-375); Red Blood Count 3.88 M/mm3 (4.6-6.20); Red Cell Distribution Width 13.7 % (11.5-14.5); White Blood Count 15.5 K/mm3 (4.5-10.0)
[2024-04-18 06:23] LABS: Lactic Acid Reflex 2.3 mmol/L (0.7-2.0)
[2024-04-18 06:31] LABS: Alanine Aminotransferase 21 U/L (6-50); Albumin Level 3.9 g/dL (3.5-5.1); Alkaline Phosphatase 27 U/L (38-126); Anion Gap 11 mmol/L (4-12); Aspartate Amino Transferase 25 U/L (17-59); Bilirubin,Total 3.1 mg/dL (0.2-1.3); Blood Urea Nitrogen 32 mg/dL (9-20); Calcium 8.3 mg/dL (8.4-10.2); Carbon Dioxide 29 mmol/L (22-30); Chloride 97 mmol/L (98-107); Estimated CRCL calculation 51 ml/min; Estimated Glomerular Filt Rate 51; Glucose 116 mg/dL (65-110); Magnesium 2.2 mg/dL (1.6-2.3); Phosphorus 2.8 mg/dL (2.5-4.5); Potassium 3.5 mmol/L (3.4-5.0); Sodium 137 mmol/L (137-145)
[2024-04-18 06:41] LABS: Band Neutrophils Percent 39 % (0-6); Lymphocytes Absolute Manual 0.31 K/mm3 (1.1-4.5); Monocytes Absolute Manual 0.77 K/mm3 (0.1-0.90); Monocytes Percent Manual 5 % (3-9); Neutrophils Absolute Manual 14.41 K/mm3 (1.3-6.7); Neutrophils Percent Manual 54 % (46-73); Platelet Estimate Slightly Decreased (Adequate); Schistocytes None Seen; Total Cells Counted 100
[2024-04-18 06:42] LABS: Hypochromasia 1+
--- NOTE | 2024-04-18 07:59 | WPDGIPROGNO ---
Progress Note: A&P Assessment and Plan (1) Nausea & vomiting: Qualifiers: Vomiting type: hematemesis Qualified Code(s): K92.0 - Hematemesis Code(s): R11.2 - Nausea with vomiting, unspecified Status: Acute Assessment and Plan: probably triggered by recent use of glp1 large amount of bezoar in esophagus, this was suctioned but also required intubation now in icu s/p iv reglan, ogt in place (2) Early satiety: Code(s): R68.81 - Early satiety Status: Acute Assessment and Plan: explained by EGD findings (3) Gastroparesis: Code(s): K31.84 - Gastroparesis Status: Acute Assessment and Plan: probably due to recent glp1 this medication should be discontinued also noted esophagitis/gastritis probably from food stasis, on iv protonix now (4) Acute respiratory failure: Code(s): J96.00 - Acute respiratory failure, unspecified whether with hypoxia or hypercapnia Status: Acute Assessment and Plan: intubated, pneumonia on treatment (5) Septic shock: Code(s): A41.9 - Sepsis, unspecified organism; R65.21 - Severe sepsis with septic shock Status: Acute Assessment and Plan: primary is weaning pressors (6) Acute kidney injury: Code(s): N17.9 - Acute kidney failure, unspecified Status: Acute Assessment and Plan: creatinine and lactic improving (7) Aspiration pneumonia: Code(s): J69.0 - Pneumonitis due to inhalation of food and vomit Status: Acute Assessment and Plan: on iv abx Subjective Date/time seen: 04/18/24 07:59 Interval history: still intubated and on pressors, less gastric content Review of Systems Review of Systems: All systems reviewed & are unremarkable except as noted in HPI and below Exam Narrative: General: Intubated and sedated HEENT:? Pupils are equal and reactive, sclera is clear, ETT in place Neck:? Supple Respiratory:? Coarse breath sounds bilaterally, decreased at bases, adequate air entry, no wheezing Cardiac:? S1-S2 normal, regular rate and rhythm Abdomen:? Soft, nontender, nondistended, hypoactive bowel sound Extremities:? No edema, cyanosis. Pedal pulses are palpable Neuro:? Patient is sedated, intubated, does not open his eyes or follow simple commands Skin:? Warm and dry, no skin lesions Psych:? Unable to assess at this time Objective Data Vital Signs Vital Signs: Vital Signs - 24 hr 04/17/24 08:01 04/17/24 08:01 04/17/24 08:00 Temperature 99.7 F H Pulse Rate 97 97 99 Respiratory Rate 20 20 21 H Blood Pressure 113/78 Pulse Oximetry 100 Oxygen Delivery Fraction of Inspired Oxygen 04/17/24 08:18 04/17/24 08:18 04/17/24 08:25 Temperature Pulse Rate 103 H 103 H 90 Respiratory Rate Blood Pressure 128/81 128/81 Pulse Oximetry 100 Oxygen Delivery Mechanical Ventilation Fraction of Inspired Oxygen 90 04/17/24 08:25 04/17/24 08:25 04/17/24 08:47 Temperature Pulse Rate 90 Respiratory Rate 21 H Blood Pressure Pulse Oximetry 100 100 Oxygen Delivery Mechanical Ventilation Mechanical Ventilation Fraction of Inspired Oxygen 90 70 04/17/24 08:47 04/17/24 08:59 04/17/24 08:01 Temperature Pulse Rate 91 90 98 Respiratory Rate 20 20 Blood Pressure 135/80 Pulse Oximetry Oxygen Delivery Fraction of Inspired Oxygen 04/17/24 09:19 04/17/24 09:03 04/17/24 09:21 Temperature Pulse Rate 90 90 90 Respiratory Rate Blood Pressure 151/89 H 151/89 H 151/89 H Pulse Oximetry Oxygen Delivery Fraction of Inspired Oxygen 04/17/24 08:00 04/17/24 08:00 04/17/24 09:47 Temperature Pulse Rate 96 91 Respiratory Rate Blood Pressure 131/77 Pulse Oximetry Oxygen Delivery Fraction of Inspired Oxygen 90 04/17/24 08:00 04/17/24 08:00 04/17/24 09:00 Temperature 99.7 F H Pulse Rate 98 98 89 Respiratory Rate 21 H 20 Blood Pressure 113/78 146/
[2024-04-18] MEDS: MINERAL OIL/WHITE PETROLATUM OINTMENT 1 APPLIC EACH EYE ×2 (08:10→20:22)
[2024-04-18] MEDS: PANTOPRAZOLE SODIUM IV 40 MG VIAL IV PUSH ×2 (08:10→20:04)
[2024-04-18] MEDS: NOREPINEPHRINE 8 MG/D5W 250 ML 8 MG/250 ML BAG 9.38 MG IV CONT (08:11)
[2024-04-18] MEDS: POTASSIUM CHLORIDE 20 MEQ PACKET (FOR LIQUID) 40 MEQ FEED TUBE (08:11)
[2024-04-18] MEDS: LEVALBUTEROL NEB 1.25 MG/3 ML 0.63 MG INHALATION ×3 (08:28→20:30)
[2024-04-18 09:02] LABS: Reflex Lactic Acid Yes or No Add Lactic
[2024-04-18] MEDS: FENTANYL 2,500MCG/NS250ML(*CRX 2,500 MCG/250 ML BAG 12.5 MCG IV CONT (09:25)
[2024-04-18 09:51] LABS: Lactic Acid 2.1 mmol/L (0.7-2.0)
--- NOTE | 2024-04-18 11:28 | WPDINTPN ---
Progress Note: A&P Assessment and Plan (1) Acute respiratory failure: Code(s): J96.00 - Acute respiratory failure, unspecified whether with hypoxia or hypercapnia Status: Acute Assessment and Plan: Patient initially presented to the ED on 04/14 with complains of hematemesis, on 04/16 he had upper endoscopy, during which he aspirated gastric contents into the lungs, O2 sats dropped to the 50s, anesthesia intubated the patient with size 6.5 ETT. Patient was transferred to the ICU -upon arrival to the ICU, once he was placed on the ventilator, patient was not getting adequate tidal volumes and a large air leak despite putting in a lot of air in the ETT balloon. I decided to reintubate the patient with a size 8.0 ET tube. At that time I noted that the NG tube was in trachea, which was pulled out. A new OG tube was reinserted using a glide scope in the stomach. -04/16; intubated -respiratory failure likely related to aspiration -chest x-ray and ABGs reviewed, ventilator adjusted, decreased PEEP to 8, on 30% FiO2 -started on Zosyn (04/16) -04/18: DC vancomycin -continue bronchodilators -sedated with fentanyl, Versed infusion . Maintain RASS of 0 to -2, daily SAT and SBT 04/17/2024: CT scan of the chest/abdomen/pelvis, noncontrast No evidence of bowel perforation. Extensive left lung consolidation, compatible with pneumonia. Mild patchy consolidation right lung base consolidation pneumonia versus atelectasis. Probable gallbladder sludge. Questionable mild wall thickening of the hepatic flexure and proximal transverse colon. Correlate for infectious/inflammatory colitis. Enlarged prostate gland (2) Septic shock: Code(s): A41.9 - Sepsis, unspecified organism; R65.21 - Severe sepsis with septic shock Status: Acute Assessment and Plan: Patient developed hypotension, acute kidney injury, lactic acidosis and is in septic shock -patient received adequate IV fluids -currently on sodium bicarb infusion which will be discontinued -albumin for intravascular volume repletion -continue antibiotics as above -04/16: Preliminary blood cultures are negative x2 -04/17: Sputum cultures pending -leukocytosis with bandemia -lactic acid trending down, almost close to normal, continue to monitor -off Brian-Synephrine and vasopressin, -wean Levophed to maintain Maintain MAP > 65 mmHg or SBP > 110 mmHg at all times for adequate end organ perfusion (3) Acute kidney injury: Code(s): N17.9 - Acute kidney failure, unspecified Status: Acute Assessment and Plan: Acute kidney injury likely related to septic shock, hypotension, hypovolemia -patient adequately fluid-resuscitated - status post sodium bicarb infusion -off all IV fluids as he was adequately fluid-resuscitated and positive fluid balance -albumin for intravascular volume repletion -CK levels are normal, urine eosinophils were negative -urine lytes did not show prerenal picture -continue to monitor urine output, electrolytes and renal function -urine output has been good, creatinine trending down nicely 04/17: renal ultrasound 1: Gallbladder wall thickening with dilated common bile duct measuring 9 mm. No gallstones. Consider acalculous cholecystitis in the appropriate clinical setting. 2: Fatty infiltration of the liver. 3: Right renal cysts, largest measuring 4.1 cm. (4) Acute upper GI bleed: Code(s): K92.2 - Gastrointestinal hemorrhage, unspecified Status: Acute Assessment and Plan: Upper GI bleed/hematemesis -appreciate GI evaluation, most likely presentation triggered by use of GLP-1 -hemoglobin has been stable -continue Protonix IV q.12 hours, sucralfate -hemoglobin is stable, continue to monitor 04/16: Upper endoscopy Gastric retention with large amount of food or Bezoar were was seen in the esophagus and the stomach, patient also had esophagitis with moderate edematous change most likely from food stasis. Moderate gastritis was s
--- NOTE | 2024-04-18 11:51 | PCNFU ---
Nutrition Follow-Up Complete: Suboptimal energy intake as related to mechanical ventilation as evidenced by NPO. goal: Meet estimated nutritional needs. Patient is progressing towards goal. No new goal. Pt current nutrition is Vital AF 1.2 at 60 ml/hr. Last recorded weight is 95.5 kg, up from 94.1 kg on admit. Bowel Motility: Last BM reported 04/15 Labs Reviewed:Glu 116, Cr 1.4, GFR 51, Hct 35.4,Hgb 12.0, BUN 32 Meds Noted: Fentanyl, Versed, Levophed, Senokot. Skin: WNL Additional Notes:Patient remains on mechanical vent. Tube feedings are being started today of Vital AF 1.2 at 20 ml/hr advancing by 10 ml q 4 hours to goal rate of 60 ml/hr at this time. Tube feedings will be providing 1584 kcal/99 gm protein/1071 ml water. Meeting 77% kcal needs at 22 kcal/kg and 88% protein needs at 1.2 gm/kg. Flush 30 ml q 4 hours. Agree with diet orders at this time. Will monitor weight, labs, skin, tube feeding tolerance, meds every Sunday and Sunday. Following in ICU rounds.
[2024-04-18 12:29] LABS: Glucose Point of Care 106 mg/dl (65-105)
--- NOTE | 2024-04-18 12:42 | P.PNNP_ITS ---
Progress Note: A&P Assessment and Plan (1) Acute kidney injury: Code(s): N17.9 - Acute kidney failure, unspecified Status: Acute Assessment and Plan: * Acute kidney injury * CK is normal * Urine electrolytes are non pre renal * Renal ultrasound mentions no hydro and mentions normal size kidneys * Lactic acid is improving * Bicarbonate is * etiology likely multifactorial ATN: * prerenal factors * hemodynamic instability/shock * infection/sepsis * hypoxia * ARB use prior to admission * s/p aggressive fluid resuscitation * Blood pressure is better. Norepinephrine requirements are down. Bicarbonate level is up. * Creatinine has improved (2) Acute respiratory failure: Code(s): J96.00 - Acute respiratory failure, unspecified whether with hypoxia or hypercap tonya Status: Acute Assessment and Plan: * secondary to aspiration/aspiration pneumonia * on mechanical ventilator support * on sedation as well as bronchodilator therapy * imaging noted * ventilator weaning once more stable (3) Septic shock: Code(s): A41.9 - Sepsis, unspecified organism; R65.21 - Severe sepsis with septic shock Status: Acute Assessment and Plan: * as noted by hypotension/hemodynamic instability, LUCILA, elevated WBC, and lactic acidosis * s/p IVF resuscitation * on vasopressor support (levophed]. This is being weaned. * off bicarb fluids * on antibiotic therapy * Blood cultures negative so far. Sputum culture underwent (4) Aspiration pneumonia: Code(s): J69.0 - Pneumonitis due to inhalation of food and vomit Status: Acute Assessment and Plan: * see #2 * CT of chest with extensive left lung consolidation, compatible with pneumonia. Mild patchy consolidation right lung base consolidation pneumonia versus atelectasis. * on atibiotic therapy * on ventilator support * follow respiratory status (5) Acute upper GI bleed: Code(s): K92.2 - Gastrointestinal hemorrhage, unspecified Status: Acute Assessment and Plan: * as noted on admission * H/H relatively stable * suspect triggered by GLP-1 use * on IV PPI * s/p EGD (on 04/16): * Gastric retention with large amount of food or Bezoar were was seen in the esophagus and the tomach, * esophagitis with moderate edematous change most likely from food stasis * moderate gastritis was seen in the stomach along with moderate erythematous and edematous changes, no ulcers * the bowel and 2nd portion of duodenum was normal with no ulcers or masses * GI following (6) Nausea & vomiting: Qualifiers: Vomiting type: hematemesis Qualified Code(s): K92.0 - Hematemesis Code(s): R11.2 - Nausea with vomiting, unspecified Status: Acute Assessment and Plan: * OG tube in place * PRN antiemetics * continue supportive therapy Subjective Date/time seen: 04/18/24 12:42 Interval history: Patient is on the ventilator and sedated. He looks comfortable. Sister and mother are in the room. We discussed the case. Review of Systems Cardiovascular: Cardiovascular: Reports no additional cardiovascular complaints Respiratory: Respiratory: Reports no additional respiratory complaints Gastrointestinal: Gastrointestinal: Reports no additional gastrointestinal complaints Genitourinary: Genitourinary: Reports no additional male genitourinary complaints Exam
--- NOTE | 2024-04-18 12:42 | PM.PNNEP ---
Progress Note: A&P Assessment and Plan (1) Acute kidney injury: Code(s): N17.9 - Acute kidney failure, unspecified Status: Acute Assessment and Plan: Acute kidney injury CK is normal Urine electrolytes are non pre renal Renal ultrasound mentions no hydro and mentions normal size kidneys Lactic acid is improving Bicarbonate is etiology likely multifactorial ATN: prerenal factors hemodynamic instability/shock infection/sepsis hypoxia ARB use prior to admission s/p aggressive fluid resuscitation Blood pressure is better. Norepinephrine requirements are down. Bicarbonate level is up. Creatinine has improved (2) Acute respiratory failure: Code(s): J96.00 - Acute respiratory failure, unspecified whether with hypoxia or hypercapnia Status: Acute Assessment and Plan: secondary to aspiration/aspiration pneumonia on mechanical ventilator support on sedation as well as bronchodilator therapy imaging noted ventilator weaning once more stable (3) Septic shock: Code(s): A41.9 - Sepsis, unspecified organism; R65.21 - Severe sepsis with septic shock Status: Acute Assessment and Plan: as noted by hypotension/hemodynamic instability, LUCILA, elevated WBC, and lactic acidosis s/p IVF resuscitation on vasopressor support (levophed]. This is being weaned. off bicarb fluids on antibiotic therapy Blood cultures negative so far. Sputum culture underwent (4) Aspiration pneumonia: Code(s): J69.0 - Pneumonitis due to inhalation of food and vomit Status: Acute Assessment and Plan: see #2 CT of chest with extensive left lung consolidation, compatible with pneumonia. Mild patchy consolidation right lung base consolidation pneumonia versus atelectasis. on atibiotic therapy on ventilator support follow respiratory status (5) Acute upper GI bleed: Code(s): K92.2 - Gastrointestinal hemorrhage, unspecified Status: Acute Assessment and Plan: as noted on admission H/H relatively stable suspect triggered by GLP-1 use on IV PPI s/p EGD (on 04/16): Gastric retention with large amount of food or Bezoar were was seen in the esophagus and the tomach, esophagitis with moderate edematous change most likely from food stasis moderate gastritis was seen in the stomach along with moderate erythematous and edematous changes, no ulcers the bowel and 2nd portion of duodenum was normal with no ulcers or masses GI following (6) Nausea & vomiting: Qualifiers: Vomiting type: hematemesis Qualified Code(s): K92.0 - Hematemesis Code(s): R11.2 - Nausea with vomiting, unspecified Status: Acute Assessment and Plan: OG tube in place PRN antiemetics continue supportive therapy Subjective Date/time seen: 04/18/24 12:42 Interval history: Patient is on the ventilator and sedated. He looks comfortable. Sister and mother are in the room. We discussed the case. Review of Systems Cardiovascular: Cardiovascular: Reports no additional cardiovascular complaints Respiratory: Respiratory: Reports no additional respiratory complaints Gastrointestinal: Gastrointestinal: Reports no additional gastrointestinal complaints Genitourinary: Genitourinary: Reports no additional male genitourinary complaints Exam Narrative: WDWN in NAD on the ventilator and sedated skin no rash head ncat lungs mild coarse breath sounds throughout due to ventilator cor reg no rub abd BS+ nontender and soft ext no edema. Objective Data Vital Signs Vital Signs: Vital Signs - 24 hr 04/17/24 12:55 04/17/24 13:20 04/17/24 13:00 Temperature 99.3 F Pulse Rate 95 91 93 Respiratory Rate 20 Blood Pressure 132/85 127/79 115/73 Pulse Oximetry 98 Oxygen Delivery Fraction of Inspired Oxygen 04/17/24 13:33 04/17/24 13:10 04/17/24 13:57 Temperature Pulse Rate 90 96 Resp
[2024-04-18 13:23] LABS: Chloride Rand Ur <20 mmol/L (32-290); Creatinine Random Urine 88 mg/dL (20-320)
[2024-04-18 16:47] LABS: Triglycerides 210 mg/dL (<150)
[2024-04-18 19:37] LABS: Glucose Point of Care 93 mg/dl (65-105)
[2024-04-18] MEDS: HYDROCORTISONE SODIUM SUCCINATE 100 MG/2 ML VIAL 50 MG IV PUSH (20:04)
[2024-04-18] MEDS: ACETAMINOPHEN 500 MG TABLET PO (20:04)
[2024-04-19] VITALS (70 sets, daily range): BP systolic 101–143; BP diastolic 57–87; PULSE 76–114; RESP 16–31; TEMP 37–37.8; O2SAT 89–98
[2024-04-19] MEDS: PIPERACILLN/TAZ 3.375GM/NS50ML 3.375 GM/50 ML BAG IVPB ×4 (00:30→17:05)
[2024-04-19 00:54] LABS: Glucose Point of Care 121 mg/dl (65-105)
[2024-04-19] MEDS: MIDAZOLAM 100MG/NS 100ML(*CRX) 100 MG/100 ML BAG IV CONT (01:06)
[2024-04-19] MEDS: IPRATROPIUM BR 0.02% INH SOLN 0.5 MG/2.5 ML VIAL INHALATION ×4 (02:55→20:12)
[2024-04-19] MEDS: LEVALBUTEROL NEB 1.25 MG/3 ML 0.63 MG INHALATION ×4 (02:55→20:12)
[2024-04-19 05:59] LABS: Hematocrit 33.3 % (42.0-52.0); Hemoglobin 11.2 g/dL (14.0-18.0); Mean Corpuscular HGB Conc 33.6 g/dl (32-36); Mean Corpuscular Hemoglobin 30.9 pg (26-34); Mean Corpuscular Volume 91.7 fl (80-100); Mean Platelet Volume 10.5 fl (7.4-10.4); Platelet Count Result 111 k/mm3 (150-375); Red Blood Count 3.63 M/mm3 (4.6-6.20); Red Cell Distribution Width 13.7 % (11.5-14.5); White Blood Count 12.4 K/mm3 (4.5-10.0)
[2024-04-19] MEDS: SUCRALFATE SUSP 100 MG/ML 10 ML UDC 1000 MG PO ×4 (06:00→21:54)
[2024-04-19 06:07] LABS: Alveolar/Arterial O2 Gradient 69.5 mmHg; Base Excess ABG 4.3 mEq/l (+/-2.0); Carboxyhemoglobin 0.5 % THb (0-2.0); Fractional Inspired Oxygen 30 %; HCO3 ABG 25.5 mEq/l (22.0-26.0); Methemoglobin ABG 0.2 %THb (0-1.5); Oxygen Content ABG 19.6 %vol (16.0-22.0); Oxygen Saturation ABG 98.6 % (95.0-100.0); PCO2 ABG 28.9 mmHg (35.0-45.0); PO2 ABG 110.4 mmHg (80.0-100.0); PO2 FiO2 Ratio Arterial Blood 3.68 %; Reduced Hemoglobin 1.3 %THb (0-5.0); Total Hemoglobin 14.1 g/dL (12.0-18.0)
[2024-04-19 06:09] LABS: Device VENTILATOR; Modified Allen's Test Pass; Site Drawn RIGHT RADIAL; pH ABG 7.564 (7.350-7.450)
[2024-04-19] MEDS: CENTRAL LINE FLUSH 10 ML IV PUSH ×3 (06:09→21:54)
[2024-04-19 06:10] LABS: Arterial Blood Gas PEEP 8 cmH2O; Arterial Blood Gas Tidal Volume 500 ml; Arterial Blood Gas Vent Mode CMV; Arterial Blood Gas Ventilator rate 20 /MIN
[2024-04-19 06:10] LABS: Alanine Aminotransferase 21 U/L (6-50); Albumin Level 3.8 g/dL (3.5-5.1); Alkaline Phosphatase 28 U/L (38-126); Anion Gap 10 mmol/L (4-12); Aspartate Amino Transferase 25 U/L (17-59); Bilirubin,Total 2.9 mg/dL (0.2-1.3); Blood Urea Nitrogen 44 mg/dL (9-20); Calcium 8.6 mg/dL (8.4-10.2); Carbon Dioxide 26 mmol/L (22-30); Chloride 101 mmol/L (98-107); Estimated CRCL calculation 55 ml/min; Estimated Glomerular Filt Rate 56; Glucose 119 mg/dL (65-110); Magnesium 2.9 mg/dL (1.6-2.3); Potassium 3.4 mmol/L (3.4-5.0); Sodium 137 mmol/L (137-145)
[2024-04-19 06:39] LABS: Band Neutrophils Percent 17 % (0-6); Lymphocytes Absolute Manual 0.86 K/mm3 (1.1-4.5); Monocytes Absolute Manual 0.99 K/mm3 (0.1-0.90); Monocytes Percent Manual 8 % (3-9); Neutrophils Absolute Manual 10.54 K/mm3 (1.3-6.7); Neutrophils Percent Manual 68 % (46-73); Total Cells Counted 100
[2024-04-19 06:40] LABS: Microcytosis 1+ (NORMAL); Platelet Estimate Slightly Decreased (Adequate); Schistocytes None Seen
--- NOTE | 2024-04-19 08:04 | WPDINTPN ---
Progress Note: A&P Assessment and Plan (1) Acute respiratory failure: Qualifiers: Respiratory failure complication: hypoxia Qualified Code(s): J96.01 - Acute respiratory failure with hypoxia Code(s): J96.00 - Acute respiratory failure, unspecified whether with hypoxia or hypercapnia Status: Acute Assessment and Plan: Patient initially presented to the ED on 04/14 with complains of hematemesis, on 04/16 he had upper endoscopy, during which he aspirated gastric contents into the lungs, O2 sats dropped to the 50s, anesthesia intubated the patient with size 6.5 ETT. Patient was transferred to the ICU -upon arrival to the ICU, once he was placed on the ventilator, patient was not getting adequate tidal volumes and a large air leak despite putting in a lot of air in the ETT balloon. I decided to reintubate the patient with a size 8.0 ET tube. At that time I noted that the NG tube was in trachea, which was pulled out. A new OG tube was reinserted using a glide scope in the stomach. -04/16; intubated -respiratory failure likely related to aspiration -chest x-ray and ABGs reviewed, ventilator adjusted, on PEEP of 8, on 30% FiO2 - continue Zosyn (04/16) -04/18: Vancomycin discontinued -continue bronchodilators -sedated with fentanyl, Versed infusion . Maintain RASS of 0 to -2, daily SAT and SBT 04/18: Patient spike fevers, was given Tylenol, blood cultures obtained 04/17/2024: CT scan of the chest/abdomen/pelvis, noncontrast No evidence of bowel perforation. Extensive left lung consolidation, compatible with pneumonia. Mild patchy consolidation right lung base consolidation pneumonia versus atelectasis. Probable gallbladder sludge. Questionable mild wall thickening of the hepatic flexure and proximal transverse colon. Correlate for infectious/inflammatory colitis. Enlarged prostate gland (2) Septic shock: Code(s): A41.9 - Sepsis, unspecified organism; R65.21 - Severe sepsis with septic shock Status: Acute Assessment and Plan: Patient developed hypotension, acute kidney injury, lactic acidosis and is in septic shock -patient received adequate IV fluids -currently on sodium bicarb infusion which will be discontinued -albumin for intravascular volume repletion -continue antibiotics as above -04/16: Preliminary blood cultures are negative x2 -04/17: Sputum cultures pending -leukocytosis with bandemia -lactic acid trending down, almost close to normal, continue to monitor -off Brian-Synephrine and vasopressin, -wean Levophed to maintain Maintain MAP > 65 mmHg or SBP > 110 mmHg at all times for adequate end organ perfusion 04/18; patient spiked fevers in in the evening of . Repeated blood cultures -will check for COVID, RSV and flu -left middle finger paronychia -? acalculous cholecystitis which could be related to septic shock -will have surgery evaluate, possible HIDA scan (3) Acute kidney injury: Code(s): N17.9 - Acute kidney failure, unspecified Status: Acute Assessment and Plan: Acute kidney injury likely related to septic shock, hypotension, hypovolemia -patient adequately fluid-resuscitated - status post sodium bicarb infusion -off all IV fluids as he was adequately fluid-resuscitated and positive fluid balance -albumin for intravascular volume repletion -CK levels are normal, urine eosinophils were negative -urine lytes did not show prerenal picture -continue to monitor urine output, electrolytes and renal function -urine output has been good, creatinine has normalized 04/17: renal ultrasound 1: Gallbladder wall thickening with dilated common bile duct measuring 9 mm. No gallstones. Consider acalculous cholecystitis in the appropriate clinical setting. 2: Fatty infiltration of the liver. 3: Right renal cysts, largest measuring 4.1 cm. (4) Acute upper GI bleed: Code(s): K92.2 - Gastrointestinal hemorrhage, unspecified Status: Acute Assessment and
[2024-04-19] MEDS: HYDROCORTISONE SODIUM SUCCINATE 100 MG/2 ML VIAL 50 MG IV PUSH ×2 (09:16→21:54)
[2024-04-19] MEDS: PANTOPRAZOLE SODIUM IV 40 MG VIAL IV PUSH ×2 (09:16→21:54)
[2024-04-19] MEDS: MINERAL OIL/WHITE PETROLATUM OINTMENT 1 APPLIC EACH EYE ×2 (09:16→21:53)
[2024-04-19] MEDS: FENTANYL 2,500MCG/NS250ML(*CRX 2,500 MCG/250 ML BAG IV CONT (09:17)
[2024-04-19] MEDS: POTASSIUM/PHOSPHORUS/SODIUM 1.5 GM PACKET 1 PACKET FEED TUBE (09:18)
[2024-04-19 09:57] LABS: Appearance Urine Clear (Clear); Bacteria Urine None Seen /hpf; Bilirubin Urine 2+ (Negative); Blood Urine 2+ (Negative); Color Urine Dark Yellow (Yellow); Glucose Urine UA Negative (Negative); Ketones Urine Trace mg/dL (Negative); Leukocyte Esterase Ur Trace LEU/UL (Negative); Nitrate Urine Negative (Negative); Protein Urine 2+ mg/dL (Negative); Specific Grav Ur 1.036 (1.001-1.035); Squamous Epithelial Cell Urine None Seen /hpf (Few); WBC Urine 0-5 /hpf (0-3); pH Urine 5.5 (5.0-9.0)
[2024-04-19 10:00] LABS: Add Urine Microscopic? YES
[2024-04-19 10:24] LABS: Influenza A QL RT-PCR Negative (Negative); Influenza B QL RT-PCR Negative (Negative); RSV RNA, RT-PCR Negative (Negative); SARS-CoV-2 RNA PCR Negative (Negative)
[2024-04-19] MEDS: METOCLOPRAMIDE HCL INJ 10 MG/2 ML VIAL IV PUSH ×2 (11:57→17:05)
[2024-04-19 12:33] LABS: Glucose Point of Care 126 mg/dl (65-105)
--- NOTE | 2024-04-19 13:25 | WPDGIPROGNO ---
Progress Note: A&P Assessment and Plan (1) Nausea & vomiting: Qualifiers: Vomiting type: hematemesis Qualified Code(s): K92.0 - Hematemesis Code(s): R11.2 - Nausea with vomiting, unspecified Status: Acute Assessment and Plan: probably triggered by recent use of glp1 large amount of bezoar in esophagus, this was suctioned but also required intubation not longer on pressors, on breathing trial and improving tolerating enteral feeding (2) Early satiety: Code(s): R68.81 - Early satiety Status: Acute Assessment and Plan: explained by EGD findings and use of GLP1 (3) Gastroparesis: Code(s): K31.84 - Gastroparesis Status: Acute Assessment and Plan: probably due to recent glp1 this medication should be discontinued also noted esophagitis/gastritis probably from food stasis, on iv protonix now (4) Acute respiratory failure: Qualifiers: Respiratory failure complication: hypoxia Qualified Code(s): J96.01 - Acute respiratory failure with hypoxia Code(s): J96.00 - Acute respiratory failure, unspecified whether with hypoxia or hypercapnia Status: Acute Assessment and Plan: intubated, pneumonia on treatment and improving (5) Septic shock: Code(s): A41.9 - Sepsis, unspecified organism; R65.21 - Severe sepsis with septic shock Status: Acute Assessment and Plan: off pressors now (6) Acute kidney injury: Code(s): N17.9 - Acute kidney failure, unspecified Status: Acute Assessment and Plan: improved, good UOP (7) Aspiration pneumonia: Code(s): J69.0 - Pneumonitis due to inhalation of food and vomit Status: Acute Assessment and Plan: on iv abx Subjective Date/time seen: 04/19/24 13:25 Interval history: off pressors, better still intubated but on spontaneous breathing trial now family at bedside on tube feeding and tolerating Review of Systems Review of Systems: All systems reviewed & are unremarkable except as noted in HPI and below Exam Narrative: General: Intubated and sedated HEENT:? Pupils are equal and reactive, sclera is clear, ETT in place Neck:? Supple Respiratory:? Coarse breath sounds bilaterally left > right, decreased at bases, adequate air entry, no wheezing Cardiac:? regular rate and rhythm Abdomen:? Soft, nontender, mildly distended, hypoactive bowel sounds Extremities:? No edema, cyanosis. Neuro:? Patient is intubated and sedated, does not open his eyes or follow simple commands this morning Skin:? Warm and dry, psoriatic skin lesion Psych:? Unable to assess at this time Objective Data Vital Signs Vital Signs: Vital Signs - 24 hr 04/18/24 14:05 04/18/24 14:06 04/18/24 14:14 Temperature Pulse Rate 91 85 88 Respiratory Rate 20 20 Blood Pressure Pulse Oximetry 98 Oxygen Delivery Mechanical Ventilation Fraction of Inspired Oxygen 30 04/18/24 14:15 04/18/24 14:00 04/18/24 14:00 Temperature Pulse Rate 87 87 87 Respiratory Rate 20 20 Blood Pressure 149/92 H Pulse Oximetry Oxygen Delivery Fraction of Inspired Oxygen 04/18/24 14:00 04/18/24 14:30 04/18/24 14:00 Temperature Pulse Rate 81 87 87 Respiratory Rate Blood Pressure 139/83 131/86 Pulse Oximetry Oxygen Delivery Fraction of Inspired Oxygen 04/18/24 14:00 04/18/24 15:00 04/18/24 16:00 Temperature 98.8 F 99.0 F Pulse Rate 83 89 95 Respiratory Rate 21 H 20 Blood Pressure 131/86 122/74 130/76 Pulse Oximetry 98 98 Oxygen Delivery Fraction of Inspired Oxygen 04/18/24 16:00 04/18/24 16:00 04/18/24 17:10 Temperature Pulse Rate 91 84 92 Respiratory Rate 20 20 Blood Pressure Pulse Oximetry 98 Oxygen Delivery Mechanical Ventilation Fraction of Inspired Oxygen 30 04/18/24 16:00 04/18/24 16:00 04/18/24 16:00 Temperature Pulse Rate 92 73 Respiratory Rate 20 Blood Pressure
[2024-04-19] MEDS: HEPARIN SODIUM 5,000 UNITS/ML VIAL 5000 UNITS SUB-Q ×2 (14:10→21:54)
--- NOTE | 2024-04-19 14:57 | PM.IMPN ---
Subjective Date/time seen: 04/19/24 14:57 Interval history: Patient is currently intubated. Objective Data Vital Signs Vital Signs: Vital Signs - 24 hr 04/18/24 15:00 04/18/24 16:00 04/18/24 16:00 Temperature 99.0 F Pulse Rate 89 95 91 Respiratory Rate 20 20 Blood Pressure 122/74 130/76 Pulse Oximetry 98 Oxygen Delivery Fraction of Inspired Oxygen 04/18/24 16:00 04/18/24 17:10 04/18/24 16:00 Temperature Pulse Rate 84 92 92 Respiratory Rate 20 Blood Pressure Pulse Oximetry 98 Oxygen Delivery Mechanical Ventilation Fraction of Inspired Oxygen 30 04/18/24 16:00 04/18/24 16:00 04/18/24 16:00 Temperature 99.5 F Pulse Rate 73 92 Respiratory Rate 20 20 Blood Pressure 133/79 Pulse Oximetry 96 98 Oxygen Delivery Mechanical Ventilation Fraction of Inspired Oxygen 30 30 04/18/24 17:00 04/18/24 18:00 04/18/24 18:00 Temperature 100.3 F H Pulse Rate 96 96 Respiratory Rate 99 H 21 H Blood Pressure 133/67 123/66 Pulse Oximetry 97 98 Oxygen Delivery Fraction of Inspired Oxygen 04/18/24 18:00 04/18/24 18:00 04/18/24 18:00 Temperature Pulse Rate 98 98 97 Respiratory Rate 21 H 21 H Blood Pressure 123/66 Pulse Oximetry Oxygen Delivery Fraction of Inspired Oxygen 04/18/24 20:04 04/18/24 20:31 04/18/24 20:33 Temperature 101.5 F H Pulse Rate 106 H 104 H Respiratory Rate 22 H Blood Pressure Pulse Oximetry 95 Oxygen Delivery Mechanical Ventilation Fraction of Inspired Oxygen 30 04/18/24 20:38 04/18/24 20:00 04/18/24 20:00 Temperature Pulse Rate 102 H 102 H 102 H Respiratory Rate 22 H 20 20 Blood Pressure Pulse Oximetry Oxygen Delivery Fraction of Inspired Oxygen 04/18/24 21:04 04/18/24 20:00 04/18/24 20:00 Temperature 101.5 F H Pulse Rate Respiratory Rate Blood Pressure Pulse Oximetry Oxygen Delivery Mechanical Ventilation Fraction of Inspired Oxygen 30 30 04/18/24 20:00 04/18/24 22:00 04/18/24 22:00 Temperature Pulse Rate 102 H 97 97 Respiratory Rate 20 Blood Pressure Pulse Oximetry Oxygen Delivery Fraction of Inspired Oxygen 04/18/24 22:00 04/18/24 19:01 04/18/24 19:16 Temperature 101.0 F H 101.1 F H Pulse Rate 97 97 100 Respiratory Rate 20 21 H 22 H Blood Pressure 116/66 113/67 Pulse Oximetry 98 98 Oxygen Delivery Fraction of Inspired Oxygen 04/18/24 19:31 04/18/24 19:46 04/18/24 20:01 Temperature 101.2 F H 101.3 F H 101.5 F H Pulse Rate 103 H 103 H 103 H Respiratory Rate 21 H 21 H 20 Blood Pressure 121/67 124/67 119/68 Pulse Oximetry 97 98 97 Oxygen Delivery Fraction of Inspired Oxygen 04/18/24 20:16 04/18/24 20:31 04/18/24 20:46 Temperature 101.6 F H 101.7 F H 101.7 F H Pulse Rate 104 H 109 H 104 H Respiratory Rate 20 20 21 H Blood Pressure 119/63 115/63 101/57 L Pulse Oximetry 97 97 96 Oxygen Delivery Fraction of Inspired Oxygen 04/18/24 21:01 04/18/24 21:16 04/18/24 21:31 Temperature 101.5 F H 101.2 F H 101.0 F H Pulse Rate 102 H 98 97 Respiratory Rate 20 21 H 20 Blood Pressure 104/58 L 110/61 123/61 Pulse Oximetry 96 95 97 Oxygen Delivery Fraction of Inspired Oxygen 04/18/24 21:46 04/18/24 22:01 04/18/24 23:46 Temperature 100.9 F H 100.8 F H Pulse Rate 98 97 89 Respiratory Rate 22 H 20 Blood Pressure 124/67 121/69 Pulse Oximetry 97 97 97 Oxygen Delivery Mechanical Ventilation Fraction of Inspired Oxygen 30 04/19/24 00:00 04/19/24 00:00 04/19/24 01:06 Temperature Pulse Rate 86 86 83 Respiratory Rate 21 H 21 H 21 H Blood Pressure Pulse Oximetry Oxygen Delivery Fraction of Inspired Oxygen 04/19/24 00:00 04/19/24 00:00 04/19/24 00:00 Temperature Pulse Rate 86 Respiratory Rate Blood Pressure Pulse Oximetry Oxygen Delivery Mechanical Ventilation Fraction of Inspired Oxygen 30 30 04/18/24 22:16 04/18/24 22:31 04/18
--- NOTE | 2024-04-19 15:51 | P.PNNP_ITS ---
Progress Note: A&P Assessment and Plan (1) Acute kidney injury: Code(s): N17.9 - Acute kidney failure, unspecified Status: Acute Assessment and Plan: * Acute kidney injury * CK is normal * Urine electrolytes are non pre renal * Renal ultrasound mentions no hydro and mentions normal size kidneys * Lactic acid is improving * Bicarbonate is * etiology likely multifactorial ATN: * prerenal factors * hemodynamic instability/shock * infection/sepsis * hypoxia * ARB use prior to admission * s/p aggressive fluid resuscitation * Blood pressure is better. Norepinephrine requirements are down. Bicarbonate level is up. * Creatinine has improved to only 1.3 * will check labs tomorrow (2) Acute respiratory failure: Qualifiers: Respiratory failure complication: hypoxia Qualified Code(s): J96.01 - Acute respiratory failure with hypoxia Code(s): J96.00 - Acute respiratory failure, unspecified whether with hypoxia or hypercapnia Status: Acute Assessment and Plan: * secondary to aspiration/aspiration pneumonia * on mechanical ventilator support * on sedation as well as bronchodilator therapy * still on the ventilator. Getting pulmonary toilet. (3) Septic shock: Code(s): A41.9 - Sepsis, unspecified organism; R65.21 - Severe sepsis with septic shock Status: Acute Assessment and Plan: * as noted by hypotension/hemodynamic instability, LUCILA, elevated WBC, and lactic acidosis * s/p IVF resuscitation * on vasopressor support (levophed]. This is being weaned. * off bicarb fluids * on antibiotic therapy * Blood cultures negative so far. Sputum culture Mixed bacterial smiley (4) Aspiration pneumonia: Code(s): J69.0 - Pneumonitis due to inhalation of food and vomit Status: Acute Assessment and Plan: * see #2 * CT of chest with extensive left lung consolidation, compatible with pneumonia. Mild patchy consolidation right lung base consolidation pneumonia versus atelectasis. * on atibiotic therapy * on ventilator support * follow respiratory status (5) Acute upper GI bleed: Code(s): K92.2 - Gastrointestinal hemorrhage, unspecified Status: Acute Assessment and Plan: * as noted on admission * H/H relatively stable * suspect triggered by GLP-1 use * on IV PPI * s/p EGD (on 04/16): * Gastric retention with large amount of food or Bezoar were was seen in the esophagus and the tomach, * esophagitis with moderate edematous change most likely from food stasis * moderate gastritis was seen in the stomach along with moderate erythematous and edematous changes, no ulcers * the bowel and 2nd portion of duodenum was normal with no ulcers or masses * GI following (6) Nausea & vomiting: Qualifiers: Vomiting type: hematemesis Qualified Code(s): K92.0 - Hematemesis Code(s): R11.2 - Nausea with vomiting, unspecified Status: Acute Assessment and Plan: * OG tube in place * PRN antiemetics * continue supportive therapy Subjective Date/time seen: 04/19/24 15:51 Interval history: patient is sedated. Moves about a little bit more. Still on the ventilator mother and sister still in the room. Exam Narrative: WDWN in NAD on the ventilator and sedated skin no rash Or subcu nodules head ncat lungs mild coarse breath sounds throughout due to ventilator cor reg no rub or gallop abd BS+ no
--- NOTE | 2024-04-19 15:51 | PM.PNNEP ---
Progress Note: A&P Assessment and Plan (1) Acute kidney injury: Code(s): N17.9 - Acute kidney failure, unspecified Status: Acute Assessment and Plan: Acute kidney injury CK is normal Urine electrolytes are non pre renal Renal ultrasound mentions no hydro and mentions normal size kidneys Lactic acid is improving Bicarbonate is etiology likely multifactorial ATN: prerenal factors hemodynamic instability/shock infection/sepsis hypoxia ARB use prior to admission s/p aggressive fluid resuscitation Blood pressure is better. Norepinephrine requirements are down. Bicarbonate level is up. Creatinine has improved to only 1.3 will check labs tomorrow (2) Acute respiratory failure: Qualifiers: Respiratory failure complication: hypoxia Qualified Code(s): J96.01 - Acute respiratory failure with hypoxia Code(s): J96.00 - Acute respiratory failure, unspecified whether with hypoxia or hypercapnia Status: Acute Assessment and Plan: secondary to aspiration/aspiration pneumonia on mechanical ventilator support on sedation as well as bronchodilator therapy still on the ventilator. Getting pulmonary toilet. (3) Septic shock: Code(s): A41.9 - Sepsis, unspecified organism; R65.21 - Severe sepsis with septic shock Status: Acute Assessment and Plan: as noted by hypotension/hemodynamic instability, LUCILA, elevated WBC, and lactic acidosis s/p IVF resuscitation on vasopressor support (levophed]. This is being weaned. off bicarb fluids on antibiotic therapy Blood cultures negative so far. Sputum culture Mixed bacterial smiley (4) Aspiration pneumonia: Code(s): J69.0 - Pneumonitis due to inhalation of food and vomit Status: Acute Assessment and Plan: see #2 CT of chest with extensive left lung consolidation, compatible with pneumonia. Mild patchy consolidation right lung base consolidation pneumonia versus atelectasis. on atibiotic therapy on ventilator support follow respiratory status (5) Acute upper GI bleed: Code(s): K92.2 - Gastrointestinal hemorrhage, unspecified Status: Acute Assessment and Plan: as noted on admission H/H relatively stable suspect triggered by GLP-1 use on IV PPI s/p EGD (on 04/16): Gastric retention with large amount of food or Bezoar were was seen in the esophagus and the tomach, esophagitis with moderate edematous change most likely from food stasis moderate gastritis was seen in the stomach along with moderate erythematous and edematous changes, no ulcers the bowel and 2nd portion of duodenum was normal with no ulcers or masses GI following (6) Nausea & vomiting: Qualifiers: Vomiting type: hematemesis Qualified Code(s): K92.0 - Hematemesis Code(s): R11.2 - Nausea with vomiting, unspecified Status: Acute Assessment and Plan: OG tube in place PRN antiemetics continue supportive therapy Subjective Date/time seen: 04/19/24 15:51 Interval history: patient is sedated. Moves about a little bit more. Still on the ventilator mother and sister still in the room. Exam Narrative: WDWN in NAD on the ventilator and sedated skin no rash Or subcu nodules head ncat lungs mild coarse breath sounds throughout due to ventilator cor reg no rub or gallop abd BS+ nontender and soft ext no edema or cyanosis. Objective Data Vital Signs Vital Signs: Vital Signs - 24 hr 04/18/24 16:00 04/18/24 16:00 04/18/24 16:00 Temperature Pulse Rate 95 91 84 Respiratory Rate 20 20 Blood Pressure 130/76 Pulse Oximetry Oxygen Delivery Fraction of Inspired Oxygen 04/18/24 17:10 04/18/24 16:00 04/18/24 16:00 Temperature Pulse Rate 92 92 73 Respiratory Rate 20 Blood Pressure Pulse Oximetry 98 96 Oxygen Delivery Mechanical Ventilation Mechanical Ventilation Fraction
[2024-04-19] MEDS: dexmedeTOMIDine 400 MCG/100 ML 400 MCG/100 ML BAG IV CONT (16:57)
[2024-04-19 17:35] LABS: Glucose Point of Care 106 mg/dl (65-105)
--- NOTE | 2024-04-19 18:49 | PC.NURSE ---
Addendum entered by Ashlie Hall RN 04/19/24 18:53: Precedex gtt. titrated to 0.3mcg/kg/HR for RASS score of +1 Restless at 1847. All vitals documented in assessments. Precedex gtt. titration confirmed with JOSISE Beard. RN to continue to monitor patient. RN Remains unable to titrate medication in NOV. Pharmacy and IT aware. Original Note: System IT error occurring with Precedex titration/ regulation. RN started Precedex gtt @1657 at 0.2 mcg/kg/HR. Patient has a RASS score of +1 restless when medication started. Vital signs documented in assessments. Initiation of gtt. verified by JOSSIE Beard at time of initiation. RN to continue to monitor.
[2024-04-20] VITALS (44 sets, daily range): BP systolic 141–170; BP diastolic 72–106; PULSE 64–86; RESP 18–25; TEMP 36.4–38.2; O2SAT 93–98
[2024-04-20] MEDS: PIPERACILLN/TAZ 3.375GM/NS50ML 3.375 GM/50 ML BAG IVPB ×4 (00:36→18:02)
[2024-04-20] MEDS: METOCLOPRAMIDE HCL INJ 10 MG/2 ML VIAL IV PUSH ×4 (00:36→18:03)
[2024-04-20] MEDS: dexmedeTOMIDine 400 MCG/100 ML 400 MCG/100 ML BAG 14.355 MCG IV CONT (00:37)
[2024-04-20 00:56] LABS: Glucose Point of Care 125 mg/dl (65-105)
[2024-04-20] MEDS: IPRATROPIUM BR 0.02% INH SOLN 0.5 MG/2.5 ML VIAL INHALATION ×4 (02:02→20:00)
[2024-04-20] MEDS: LEVALBUTEROL NEB 1.25 MG/3 ML 0.63 MG INHALATION ×4 (02:02→20:00)
[2024-04-20 05:30] LABS: Alveolar/Arterial O2 Gradient 68.7 mmHg; Base Excess ABG 2.9 mEq/l (+/-2.0); Carboxyhemoglobin 0.3 % THb (0-2.0); Fractional Inspired Oxygen 30 %; HCO3 ABG 25.8 mEq/l (22.0-26.0); Methemoglobin ABG 0.2 %THb (0-1.5); Oxygen Content ABG 17.7 %vol (16.0-22.0); Oxygen Saturation ABG 98.2 % (95.0-100.0); Oxyhemoglobin 97.6 % THb (90.0-100.0); PCO2 ABG 34.2 mmHg (35.0-45.0); Reduced Hemoglobin 1.9 %THb (0-5.0); Total Hemoglobin 12.8 g/dL (12.0-18.0); pH ABG 7.496 (7.350-7.450)
[2024-04-20 05:31] LABS: Arterial Blood Gas PEEP 8 cmH2O; Arterial Blood Gas Tidal Volume 450 ml; Arterial Blood Gas Vent Mode CMV; Arterial Blood Gas Ventilator rate 16 /MIN; Device VENTILATOR; Modified Allen's Test Unable to perform; Site Drawn RIGHT RADIAL
[2024-04-20] MEDS: HEPARIN SODIUM 5,000 UNITS/ML VIAL 5000 UNITS SUB-Q ×3 (06:33→21:24)
[2024-04-20] MEDS: CENTRAL LINE FLUSH 10 ML IV PUSH ×3 (06:34→21:26)
[2024-04-20] MEDS: SUCRALFATE SUSP 100 MG/ML 10 ML UDC 1000 MG PO ×4 (06:44→21:24)
[2024-04-20 06:48] LABS: Basophils Percent Auto 0.4 % (0.2-1.2); Eosinophils Percent Auto 0.2 % (0-4.4); Hematocrit 36.2 % (42.0-52.0); Hemoglobin 12.1 g/dL (14.0-18.0); Immature Granulocyte Absolute 0.24 K/mm3 (0.00-0.031); Immature Granulocyte Percent A 2.6 % (0-0.5); Immature Platelet Fraction Pct 5.4 % (0.9-11.2); Lymphocytes Absolute Auto 0.81 K/mm3 (0.9-3.2); Lymphocytes Percent Auto 8.8 % (18.3-44.2); Mean Corpuscular HGB Conc 33.4 g/dl (32-36); Mean Corpuscular Volume 92.8 fl (80-100); Mean Platelet Volume 10.5 fl (7.4-10.4); Monocytes Absolute Auto 0.5 K/mm3 (0.1-0.6); Monocytes Percent Auto 5.6 % (2.6-8.5); Neutrophils Absolute Auto 7.6 K/mm3 (1.3-6.7); Neutrophils Percent Auto 82.4 % (45.5-73.1); Nucleated Red Blood Cells Perc 0.2 % (0.0-0.2); Platelet Count Result 134 k/mm3 (150-375); Red Cell Distribution Width 14.3 % (11.5-14.5); White Blood Count 9.2 K/mm3 (4.5-10.0)
[2024-04-20 06:57] LABS: Alanine Aminotransferase 35 U/L (6-50); Albumin Level 3.8 g/dL (3.5-5.1); Alkaline Phosphatase 46 U/L (38-126); Anion Gap 10 mmol/L (4-12); Aspartate Amino Transferase 37 U/L (17-59); Bilirubin,Total 2.1 mg/dL (0.2-1.3); Blood Urea Nitrogen 40 mg/dL (9-20); Calcium 8.7 mg/dL (8.4-10.2); Carbon Dioxide 26 mmol/L (22-30); Chloride 104 mmol/L (98-107); Estimated CRCL calculation 64 ml/min; Estimated Glomerular Filt Rate > 60; Glucose 130 mg/dL (65-110); Magnesium 2.5 mg/dL (1.6-2.3); Phosphorus 2.3 mg/dL (2.5-4.5); Potassium 3.5 mmol/L (3.4-5.0); Sodium 140 mmol/L (137-145); Triglycerides 382 mg/dL (<150)
--- NOTE | 2024-04-20 07:50 | PC.NURSE ---
Precedex Titration 1900 0.4 mcg/kg/hr RASS +2 2015 0.5 mcg/kg/hr RASS +1 2200 0.5 mcg/kg/hr RASS 0 2315 0.6 mcg/kg/hr RASS +2 0000 0.6 mcg/kg/hr RASS 0 0200 0.6 mcg/kg/hr RASS 0 0315 0.7 mcg/kg/hr RASS +2 0400 0.7 mcg/kg/hr RASS 0 0600 0.6 mcg/kg/hr RASS -1 0700 0.5 mcg/kg/hr RASS -2
--- NOTE | 2024-04-20 08:15 | PC.NURSE ---
RN at bedside for shift report at 0700 with night RN. Patient on Precedex gtt at 0.6mcg/kg/hr. Patients Precedex gtt decreased to 0.5 mcg/kg/hr for RASS score of -2. Vital signs documented in chart to correlate with assessment.
--- NOTE | 2024-04-20 08:33 | PC.NURSE ---
Addendum entered by Ashlie Hall RN 04/20/24 20:04: Precedex titration record: @1000 Precedex running at 0.3 mcg/kg/hr, patient restless at RASS 1+ (Precedex titrated to 0.4mcg/kg/hr) @1100 Precedex running at 0.4mcg/kg/hr, patient restless at RASS 1+ (Precedex titrated to 0.5 mcg/kg/hr) @1200 Precedex running at 0.5 mcg/kg/hr, patient agitated at RASS +2 (Precedex titrated to 0.6 mcg/kg/hr) @1400 Precedex running at 0.6 mcg/kg/hr, patient restless at RASS +1 (Precedex titrated to 0.7 mcg/kg/hr) @1600 Precedex running at 0.7 mcg/kg/hr, Patients RASS at goal (RASS score of 0 Alert and Calm) @1800 Precedex running at 0.7 mcg/kg/hr, patients RASS at goal (RASS score of 0 Alert and Calm) All vital signs obtained during titrations and maintenance periods of gtt. therapy. Vital signs documented in assessments in chart. (RN continuing to chart Precedex gtt. in nursing notes due to IT malfunction of Precedex gtt. flowsheet. Precedex gtt. titrated within parameter of order guideline.) Original Note: RN and physician present at bedside at 0800. MD order to decrease Precedex gtt to 0.3 mcg/kg/hr. Order set changed. Patient at a RASS of -2. Vital signs documented in assessment.
[2024-04-20] MEDS: DORNASE ALFA INH SOLN 1 MG/ML 2.5 ML AMP 2.5 MG INHALATION ×2 (08:37→20:00)
[2024-04-20] MEDS: FUROSEMIDE INJ 40 MG/4 ML VIAL IV PUSH (08:55)
[2024-04-20] MEDS: PANTOPRAZOLE SODIUM IV 40 MG VIAL IV PUSH ×2 (08:55→21:24)
[2024-04-20] MEDS: POTASSIUM CHLORIDE 20 MEQ PACKET (FOR LIQUID) 40 MEQ FEED TUBE (08:55)
[2024-04-20] MEDS: VANCOMYCIN 1,500 MG/NS 500 ML 1,500 MG/500 ML BAG 250 MG IVPB (08:56)
[2024-04-20] MEDS: MINERAL OIL/WHITE PETROLATUM OINTMENT 1 APPLIC EACH EYE ×2 (08:56→21:25)
[2024-04-20] MEDS: POTASSIUM PHOS/SODIUM PHOS 250 MG TABLET PO (08:56)
[2024-04-20] MEDS: dexmedeTOMIDine 400 MCG/100 ML 400 MCG/100 ML BAG 7.178 MCG IV CONT ×2 (08:56→18:43)
--- NOTE | 2024-04-20 09:10 | WPDGIPROGNO ---
Progress Note: A&P Assessment and Plan (1) Nausea & vomiting: Qualifiers: Vomiting type: hematemesis Qualified Code(s): K92.0 - Hematemesis Code(s): R11.2 - Nausea with vomiting, unspecified Status: Acute Assessment and Plan: probably triggered by recent use of glp1 large amount of bezoar in esophagus, this was suctioned but also required intubation off pressors and clinical condition is better tolerating enteral feeding (2) Early satiety: Code(s): R68.81 - Early satiety Status: Acute Assessment and Plan: explained by EGD findings and use of GLP1 (3) Gastroparesis: Code(s): K31.84 - Gastroparesis Status: Acute Assessment and Plan: probably due to recent glp1 this medication should be discontinued also noted esophagitis/gastritis probably from food stasis, on iv protonix now (4) Acute respiratory failure: Qualifiers: Respiratory failure complication: hypoxia Qualified Code(s): J96.01 - Acute respiratory failure with hypoxia Code(s): J96.00 - Acute respiratory failure, unspecified whether with hypoxia or hypercapnia Status: Acute Assessment and Plan: intubated, pneumonia on treatment and improving (5) Septic shock: Code(s): A41.9 - Sepsis, unspecified organism; R65.21 - Severe sepsis with septic shock Status: Acute Assessment and Plan: resolved (6) Acute kidney injury: Code(s): N17.9 - Acute kidney failure, unspecified Status: Acute Assessment and Plan: resolved, good UOP (7) Aspiration pneumonia: Code(s): J69.0 - Pneumonitis due to inhalation of food and vomit Status: Acute Assessment and Plan: on iv abx Subjective Date/time seen: 04/20/24 09:10 Interval history: BP running a bit high now (he has h/o HTN), better, still intubated tolerating enteral tube feeding Review of Systems Review of Systems: All systems reviewed & are unremarkable except as noted in HPI and below Exam Narrative: General: Intubated and sedated HEENT:? Pupils are equal and reactive, sclera is clear, ETT in place, tolerating enteral tube feeding Neck:? Supple Respiratory:? Coarse breath sounds bilaterally left > right, no wheezing Cardiac:? regular rate and rhythm Abdomen:? Soft, nontender, mildly distended, + bowel sounds Extremities:? No edema, cyanosis. Neuro:? Patient is intubated and sedated Skin:? Warm and dry, psoriatic skin lesion Psych:? Unable to assess at this time Objective Data Vital Signs Vital Signs: Vital Signs - 24 hr 04/19/24 09:17 04/19/24 09:17 04/19/24 09:41 Temperature Pulse Rate 86 86 97 Respiratory Rate 18 18 20 Blood Pressure Pulse Oximetry Oxygen Delivery Fraction of Inspired Oxygen 04/19/24 09:46 04/19/24 10:20 04/19/24 10:00 Temperature Pulse Rate 89 84 84 Respiratory Rate 17 17 Blood Pressure Pulse Oximetry Oxygen Delivery Fraction of Inspired Oxygen 04/19/24 10:00 04/19/24 11:30 04/19/24 11:00 Temperature 99.2 F 99.4 F Pulse Rate 84 97 Respiratory Rate 17 19 Blood Pressure 108/67 125/71 Pulse Oximetry 96 97 Oxygen Delivery Fraction of Inspired Oxygen 30 04/19/24 11:52 04/19/24 10:41 04/19/24 11:48 Temperature Pulse Rate 91 99 94 Respiratory Rate 17 18 Blood Pressure Pulse Oximetry 96 Oxygen Delivery Mechanical Ventilation Fraction of Inspired Oxygen 30 04/19/24 12:00 04/19/24 12:00 04/19/24 12:00 Temperature 99.4 F Pulse Rate 98 Respiratory Rate 19 Blood Pressure 127/79 Pulse Oximetry 96 96 Oxygen Delivery Mechanical Ventilation Fraction of Inspired Oxygen 30 04/19/24 12:00 04/19/24 13:00 04/19/24 14:00 Temperature 99.6 F 99.7 F H Pulse Rate 98 104 H 90 Respiratory Rate 23 H 16 Blood Pressure 123/76 120/87 Pulse Oximetry 95 96 Oxygen Delivery Fraction of Inspired Oxygen 04/19/24 14:00 04/19/24
--- NOTE | 2024-04-20 10:44 | P.PNNP_ITS ---
Progress Note: A&P Assessment and Plan (1) Acute kidney injury: Code(s): N17.9 - Acute kidney failure, unspecified Status: Acute Assessment and Plan: * Acute kidney injury * CK is normal * Urine electrolytes are non pre renal * Renal ultrasound mentions no hydro and mentions normal size kidneys * Lactic acid is improving * Bicarbonate is * etiology likely multifactorial ATN: * prerenal factors * hemodynamic instability/shock * infection/sepsis * hypoxia * ARB use prior to admission * s/p aggressive fluid resuscitation * Blood pressure is better. * Creatinine has come down to normal. * Renal will sign off (2) Acute respiratory failure: Qualifiers: Respiratory failure complication: hypoxia Qualified Code(s): J96.01 - Acute respiratory failure with hypoxia Code(s): J96.00 - Acute respiratory failure, unspecified whether with hypoxia or hypercapnia Status: Acute Assessment and Plan: * secondary to aspiration/aspiration pneumonia * on mechanical ventilator support * on sedation as well as bronchodilator therapy * still on the ventilator. Getting pulmonary toilet. (3) Septic shock: Code(s): A41.9 - Sepsis, unspecified organism; R65.21 - Severe sepsis with septic shock Status: Acute Assessment and Plan: * this is improved. He is off pressors. (4) Aspiration pneumonia: Code(s): J69.0 - Pneumonitis due to inhalation of food and vomit Status: Acute Assessment and Plan: Still on the ventilator. (5) Acute upper GI bleed: Code(s): K92.2 - Gastrointestinal hemorrhage, unspecified Status: Acute Assessment and Plan: * as noted on admission * H/H relatively stable * suspect triggered by GLP-1 use * on IV PPI * s/p EGD (on 04/16): * Gastric retention with large amount of food or Bezoar were was seen in the esophagus and the tomach, * esophagitis with moderate edematous change most likely from food stasis * moderate gastritis was seen in the stomach along with moderate erythematous and edematous changes, no ulcers * the bowel and 2nd portion of duodenum was normal with no ulcers or masses * GI following (6) Nausea & vomiting: Qualifiers: Vomiting type: hematemesis Qualified Code(s): K92.0 - Hematemesis Code(s): R11.2 - Nausea with vomiting, unspecified Status: Acute Assessment and Plan: * Tolerating tube feedings lately Subjective Date/time seen: 04/20/24 10:44 Interval history: patient is on the ventilator. A little bit more restless. Significant other is in the room. We discussed the case. Exam Narrative: WDWN in NAD on the ventilator and sedated skin no rash Or subcu nodules head ncat lungs mild coarse breath sounds throughout due to ventilator cor reg no rub abd BS+ nontender and soft ext no edema Objective Data Vital Signs Vital Signs: Vital Signs - 24 hr 04/19/24 11:30 04/19/24 11:00 04/19/24 11:52 Temperature 99.4 F Pulse Rate 97 91 Respiratory Rate 19 17 Blood Pressure 125/71 Pulse Oximetry 97 Oxygen Delivery Fraction of Inspired Oxygen 30 04/19/24 11:48 04/19/24 12:00 04/19/24 12:00 Temperature 99.4 F Pulse Rate 94 98 Respiratory Ra
--- NOTE | 2024-04-20 10:44 | PM.PNNEP ---
Progress Note: A&P Assessment and Plan (1) Acute kidney injury: Code(s): N17.9 - Acute kidney failure, unspecified Status: Acute Assessment and Plan: Acute kidney injury CK is normal Urine electrolytes are non pre renal Renal ultrasound mentions no hydro and mentions normal size kidneys Lactic acid is improving Bicarbonate is etiology likely multifactorial ATN: prerenal factors hemodynamic instability/shock infection/sepsis hypoxia ARB use prior to admission s/p aggressive fluid resuscitation Blood pressure is better. Creatinine has come down to normal. Renal will sign off (2) Acute respiratory failure: Qualifiers: Respiratory failure complication: hypoxia Qualified Code(s): J96.01 - Acute respiratory failure with hypoxia Code(s): J96.00 - Acute respiratory failure, unspecified whether with hypoxia or hypercapnia Status: Acute Assessment and Plan: secondary to aspiration/aspiration pneumonia on mechanical ventilator support on sedation as well as bronchodilator therapy still on the ventilator. Getting pulmonary toilet. (3) Septic shock: Code(s): A41.9 - Sepsis, unspecified organism; R65.21 - Severe sepsis with septic shock Status: Acute Assessment and Plan: this is improved. He is off pressors. (4) Aspiration pneumonia: Code(s): J69.0 - Pneumonitis due to inhalation of food and vomit Status: Acute Assessment and Plan: Still on the ventilator. (5) Acute upper GI bleed: Code(s): K92.2 - Gastrointestinal hemorrhage, unspecified Status: Acute Assessment and Plan: as noted on admission H/H relatively stable suspect triggered by GLP-1 use on IV PPI s/p EGD (on 04/16): Gastric retention with large amount of food or Bezoar were was seen in the esophagus and the tomach, esophagitis with moderate edematous change most likely from food stasis moderate gastritis was seen in the stomach along with moderate erythematous and edematous changes, no ulcers the bowel and 2nd portion of duodenum was normal with no ulcers or masses GI following (6) Nausea & vomiting: Qualifiers: Vomiting type: hematemesis Qualified Code(s): K92.0 - Hematemesis Code(s): R11.2 - Nausea with vomiting, unspecified Status: Acute Assessment and Plan: Tolerating tube feedings lately Subjective Date/time seen: 04/20/24 10:44 Interval history: patient is on the ventilator. A little bit more restless. Significant other is in the room. We discussed the case. Exam Narrative: WDWN in NAD on the ventilator and sedated skin no rash Or subcu nodules head ncat lungs mild coarse breath sounds throughout due to ventilator cor reg no rub abd BS+ nontender and soft ext no edema Objective Data Vital Signs Vital Signs: Vital Signs - 24 hr 04/19/24 11:30 04/19/24 11:00 04/19/24 11:52 Temperature 99.4 F Pulse Rate 97 91 Respiratory Rate 19 17 Blood Pressure 125/71 Pulse Oximetry 97 Oxygen Delivery Fraction of Inspired Oxygen 04/19/24 11:48 04/19/24 12:00 04/19/24 12:00 Temperature 99.4 F Pulse Rate 94 98 Respiratory Rate 19 Blood Pressure 127/79 Pulse Oximetry 96 96 Oxygen Delivery Mechanical Ventilation Fraction of Inspired Oxygen 30 04/19/24 12:00 04/19/24 12:00 04/19/24 13:00 Temperature 99.6 F Pulse Rate 98 104 H Respiratory Rate 23 H Blood Pressure 123/76 Pulse Oximetry 96 95 Oxygen Delivery Mechanical Ventilation Fraction of Inspired Oxygen 04/19/24 14:00 04/19/24 14:00 04/19/24 14:10 Temperature 99.7 F H Pulse Rate 90 93 92 Respiratory Rate 16 Blood Pressure 120/87 Pulse Oximetry 96 96 Oxygen Delivery Mechanical Ventilation Fraction of Inspired Oxygen 04/19/24 14:10 04/19/24 14:10 04/19/24 14:19 Temperature Pulse Rate 92 9
[2024-04-20 11:55] LABS: Glucose Point of Care 123 mg/dl (65-105)
[2024-04-20] MEDS: ACETAMINOPHEN 500 MG TABLET PO ×2 (13:39→21:24)
[2024-04-20] MEDS: polyethylene glycoL 3350 17 GM POWD.PACK PO (14:00)
--- NOTE | 2024-04-20 14:12 | WPDINTPN ---
Progress Note: A&P Assessment and Plan (1) Acute respiratory failure: Qualifiers: Respiratory failure complication: hypoxia Qualified Code(s): J96.01 - Acute respiratory failure with hypoxia Code(s): J96.00 - Acute respiratory failure, unspecified whether with hypoxia or hypercapnia Status: Acute Assessment and Plan: Patient initially presented to the ED on 04/14 with complains of hematemesis, on 04/16 he had upper endoscopy, during which he aspirated gastric contents into the lungs, O2 sats dropped to the 50s, anesthesia intubated the patient with size 6.5 ETT. Patient was transferred to the ICU -upon arrival to the ICU, once he was placed on the ventilator, patient was not getting adequate tidal volumes and a large air leak despite putting in a lot of air in the ETT balloon. I decided to reintubate the patient with a size 8.0 ET tube. At that time I noted that the NG tube was in trachea, which was pulled out. A new OG tube was reinserted using a glide scope in the stomach. -04/16; intubated -respiratory failure likely related to aspiration -chest x-ray and ABGs reviewed, ventilator adjusted, on PEEP of 8, on 30% FiO2 - continue Zosyn (04/16) -04/18: Vancomycin discontinued -continue bronchodilators -continue Precedex infusion 04/18: Patient spike fevers, was given Tylenol, blood cultures obtained 04/19: Patient tolerated PSV 10/5 approximately 10 hours 04/20: Worsening chest x-ray, Reordered vancomycin, did not tolerated PSV 10/5 for more than couple of hours this morning and had to be placed back on CMV. Diurese today with Lasix 40 mg IV x1 04/17/2024: CT scan of the chest/abdomen/pelvis, noncontrast No evidence of bowel perforation. Extensive left lung consolidation, compatible with pneumonia. Mild patchy consolidation right lung base consolidation pneumonia versus atelectasis. Probable gallbladder sludge. Questionable mild wall thickening of the hepatic flexure and proximal transverse colon. Correlate for infectious/inflammatory colitis. Enlarged prostate gland (2) Septic shock: Code(s): A41.9 - Sepsis, unspecified organism; R65.21 - Severe sepsis with septic shock Status: Acute Assessment and Plan: Patient developed hypotension, acute kidney injury, lactic acidosis and is in septic shock -patient received adequate IV fluids -currently on sodium bicarb infusion which will be discontinued -albumin for intravascular volume repletion -continue antibiotics as above -04/16: Preliminary blood cultures are negative x2 -04/17: Sputum cultures pending -leukocytosis with bandemia -lactic acid trending down, almost close to normal, continue to monitor -off Brian-Synephrine and vasopressin, -off Levophed 04/18; patient spiked fevers in in the evening of . Repeated blood cultures -will check for COVID, RSV and flu -left middle finger paronychia -? acalculous cholecystitis which could be related to septic shock -will have surgery evaluate, possible HIDA scan (3) Acute kidney injury: Code(s): N17.9 - Acute kidney failure, unspecified Status: Acute Assessment and Plan: Acute kidney injury likely related to septic shock, hypotension, hypovolemia -patient adequately fluid-resuscitated - status post sodium bicarb infusion -off all IV fluids as he was adequately fluid-resuscitated and positive fluid balance -albumin for intravascular volume repletion -CK levels are normal, urine eosinophils were negative -urine lytes did not show prerenal picture -continue to monitor urine output, electrolytes and renal function -urine output has been good, creatinine has normalized 04/17: renal ultrasound 1: Gallbladder wall thickening with dilated common bile duct measuring 9 mm. No gallstones. Consider acalculous cholecystitis in the appropriate clinical setting. 2: Fatty infiltration of the liver. 3: Right renal cysts, largest measuring 4.1 cm. (4) Acute upper GI bleed: Code(
--- NOTE | 2024-04-20 15:23 | PM.CNGS ---
Assessment and Plan Assessment and plan (1) Abnormal findings on imaging of biliary tract: Code(s): R93.2 - Abnormal findings on diagnostic imaging of liver and biliary tract Status: Acute Assessment and Plan: Ultrasound showed gallbladder to have a thickened wall on 04/17/24. Common bile duct was felt to be 8 mm in diameter. Patient was in septic shock at this time presumably from aspiration pneumonia. He seems to be improving as he is no longer on vasopressor of agents, no longer having fevers, white blood cell count is decreasing. Total bilirubin was the only liver enzyme to elevate and it has been trending down. It is still slightly elevated at 2.1. Abdominal exam is not helpful as patient on ventilator and seems tender over entire abdomen. Will repeat ultrasound tomorrow. Continue vancomycin and Zosyn antibiotics. Will follow along with you. Thank you for asking me to see this interesting consult. (2) Aspiration pneumonia: Code(s): J69.0 - Pneumonitis due to inhalation of food and vomit Status: Acute (3) Acute respiratory failure: Qualifiers: Respiratory failure complication: hypoxia Qualified Code(s): J96.01 - Acute respiratory failure with hypoxia Code(s): J96.00 - Acute respiratory failure, unspecified whether with hypoxia or hypercapnia Status: Acute History of Present Illness Consult details Consult date: 04/20/24 Reason for consult: other (Sepsis, abnormal LFTs) Requesting physician: Jordon Colby MD Narrative: Patient is a 64-year-old man who came to the emergency room on April 14 with history of vomiting blood. He is known to have gastroesophageal reflux and had recently been prescribed vonoprazen for reflux symptoms not being controlled by Prilosec. Patient had also taken 1 dose of tizepatide, A GLP 1 agonist, which he is to take weekly. He was admitted and was seen by Gastroenterology. An EGD was performed on 04/16/24. At this procedure, it was surprisingly found that he had a large amount retained food that could be described as a bezoar in his stomach. This was very thick and solid and the endoscopy had to be stopped so the patient could be intubated. Endoscopy then resumed but still not all of the gastric content could be cleared. Following this procedure, the patient became critically ill with septic shock, fever, acute respiratory failure. Imaging suggested large amount of aspiration pneumonia causing significant left lung pneumonia and consolidation. Around the time of the fevers and sepsis, 04/18/2024, patient was also on several vasopressor of agents. He was noted to have elevation of his total bilirubin to 4.7 on 04/17. His fevers peaked the following evening at 38.7. On 04/17/[address] scan of chest abdomen and pelvis. This showed the left lung consolidation and sludge in the gallbladder. An ultrasound of the gallbladder was done that day and showed the gallbladder to have a thickened wall of 4.5 mm suggestive of acalculous cholecystitis. Patient's white blood cell count michelle on 04/17/24 and 04/18/2024 to 15,000 with a left shift. Her white blood cell count has also come down now to normal range but still with many immature granulocytes. Patient did receive several doses of hydrocortisone but this has been discontinued. Patient is currently off vasopressors and is fevers have resolved. He is still on a mechanical ventilator. He is seen now to evaluate for the possibility of acalculous cholecystitis. When I saw the patient in the ICU, he had just had a breathing trial which had to be abandoned. He was still uncomfortable from feeling an inability to catch his breath. His was present at the bedside when I saw him. Review of Systems Review of Systems: ROS unobtainable: Yes unobtainable due to endotracheal tube (Obtained from review of chart) PMFSH Past Medical History Medical History
[2024-04-20] MEDS: OLMESARTAN MEDOXOMIL 20 MG TABLET 40 MG PO (16:00)
--- NOTE | 2024-04-20 16:21 | PM.IMPN ---
Progress Note: A&P Assessment and Plan (1) Abnormal findings on imaging of biliary tract: Code(s): R93.2 - Abnormal findings on diagnostic imaging of liver and biliary tract Status: Acute (2) Septic shock: Code(s): A41.9 - Sepsis, unspecified organism; R65.21 - Severe sepsis with septic shock Status: Acute (3) Acute respiratory failure: Qualifiers: Respiratory failure complication: hypoxia Qualified Code(s): J96.01 - Acute respiratory failure with hypoxia Code(s): J96.00 - Acute respiratory failure, unspecified whether with hypoxia or hypercapnia Status: Acute (4) Acute kidney injury: Code(s): N17.9 - Acute kidney failure, unspecified Status: Acute (5) Gastroesophageal reflux disease: Qualifiers: Esophagitis presence: esophagitis presence not specified Qualified Code(s): K21.9 - Gastro-esophageal reflux disease without esophagitis Code(s): K21.9 - Gastro-esophageal reflux disease without esophagitis Status: Acute (6) Acute upper GI bleed: Code(s): K92.2 - Gastrointestinal hemorrhage, unspecified Status: Acute (7) Hyperlipidemia: Code(s): E78.5 - Hyperlipidemia, unspecified Status: Acute (8) Hypertension: Code(s): I10 - Essential (primary) hypertension Status: Acute (9) Nausea & vomiting: Qualifiers: Vomiting type: hematemesis Qualified Code(s): K92.0 - Hematemesis Code(s): R11.2 - Nausea with vomiting, unspecified Status: Acute (10) Electrolyte imbalance: Code(s): E87.8 - Other disorders of electrolyte and fluid balance, not elsewhere classified Status: Acute (11) Acalculous cholecystitis: Code(s): K81.9 - Cholecystitis, unspecified Status: Acute (12) Paronychia: Status: Acute Plan This is a 64-year-old male with PMH GERD, hiatal hernia, hyperlipidemia, essential hypertension, diverticulosis, internal hemorrhoids who presents to [place] ER complaints of bloody vomitus. The patient had been taking extra doses of omeprazole recently due to increasing GERD symptoms. He had also been in contact with primary doctor and he was started on vonoprazan. Patient also noted epigastric and left upper quadrant abdominal discomfort with nausea. He has been on Tirzepatide at home. Patient denied NSAIDs, aspirin, blood thinner use, heavy alcohol use. Patient admitted on 04/15/2024, on 04/16 pt underwent EGD which demonstrated a large amount of food or beds or seen in the esophagus in the stomach. The larger particles could not be suction. The endoscope was removed and the patient was intubated for airway protection. There was moderate esophagitis with edematous change, biopsies taken from the lower 3rd esophagus. Moderate gastritis visualized with erythematous and edematous changes but no ulcers. Multiple biopsies taken. Duodenum within normal limits. Decision made to keep the patient intubated and he was subsequently returned to ICU. Reglan given. Gastroparesis likely caused by GLP 1 agonist. # acute respiratory failure # aspiration pneumonitis/pneumonia -status: Acute, severe -patient presented with hematemesis. Per report he had aspirational event being EGD. Patient was intubated during EGD and admitted to ICU on 04/16. Patient had an air leak on arrival to ICU and ET tube placed by therapist phys with a size 8. Per report, NG tube noted to be in the trachea. NG tube was then pulled out and OG tube was placed using a GlideScope. -continue mechanical ventilation, hemodynamic support, sedation per therapist phys. Daily chest x-ray and ABGs. -04/20: did not tolerate PSV /, placed back on CMV -currently on scheduled bronchodilators, pulmozyme -Zosyn started on 04/16 -vancomycin discontinued, restarted on 04/20 due to worsening chest x-ray # septic shock # aspirational pna, paronychia, acalculous cholecystitis -status: Acute, severe, improv
[2024-04-20 18:20] LABS: Glucose Point of Care 125 mg/dl (65-105)
[2024-04-20] MEDS: dexmedeTOMIDine 400 MCG/100 ML 400 MCG/100 ML BAG 16.748 MCG IV CONT (23:06)
[2024-04-21] VITALS (28 sets, daily range): BP systolic 123–169; BP diastolic 42–90; PULSE 67–92; RESP 2–30; TEMP 37.4–38.8; O2SAT 90–100
[2024-04-21] MEDS: METOCLOPRAMIDE HCL INJ 10 MG/2 ML VIAL IV PUSH ×2 (00:38→06:10)
[2024-04-21] MEDS: PIPERACILLN/TAZ 3.375GM/NS50ML 3.375 GM/50 ML BAG IVPB ×3 (00:38→11:37)
[2024-04-21 00:49] LABS: Glucose Point of Care 107 mg/dl (65-105)
[2024-04-21] MEDS: LEVALBUTEROL NEB 1.25 MG/3 ML 0.63 MG INHALATION ×4 (02:33→20:49)
[2024-04-21] MEDS: IPRATROPIUM BR 0.02% INH SOLN 0.5 MG/2.5 ML VIAL INHALATION ×4 (02:33→20:49)
[2024-04-21] MEDS: VANCOMYCIN 1,500 MG/NS 500 ML 1,500 MG/500 ML BAG 250 MG IVPB ×2 (03:38→20:26)
[2024-04-21] MEDS: dexmedeTOMIDine 400 MCG/100 ML 400 MCG/100 ML BAG 16.748 MCG IV CONT (04:35)
[2024-04-21 05:47] LABS: Basophils Absolute Auto 0.1 K/mm3 (0.0-0.1); Basophils Percent Auto 0.7 % (0.2-1.2); Eosinophils Absolute Auto 0.1 K/mm3 (0-0.3); Eosinophils Percent Auto 1.9 % (0-4.4); Hematocrit 37.3 % (42.0-52.0); Hemoglobin 12.2 g/dL (14.0-18.0); Immature Granulocyte Absolute 0.55 K/mm3 (0.00-0.031); Immature Granulocyte Percent A 7.6 % (0-0.5); Lymphocytes Absolute Auto 0.84 K/mm3 (0.9-3.2); Lymphocytes Percent Auto 11.7 % (18.3-44.2); Mean Corpuscular HGB Conc 32.7 g/dl (32-36); Mean Corpuscular Hemoglobin 30.3 pg (26-34); Mean Corpuscular Volume 92.6 fl (80-100); Mean Platelet Volume 10.9 fl (7.4-10.4); Monocytes Absolute Auto 0.6 K/mm3 (0.1-0.6); Monocytes Percent Auto 8.8 % (2.6-8.5); Neutrophils Percent Auto 69.3 % (45.5-73.1); Nucleated Red Blood Cells Perc 0.4 % (0.0-0.2); Platelet Count Result 163 k/mm3 (150-375); Red Blood Count 4.03 M/mm3 (4.6-6.20); Red Cell Distribution Width 14.3 % (11.5-14.5); White Blood Count 7.2 K/mm3 (4.5-10.0)
[2024-04-21 05:54] LABS: Base Excess ABG 1.8 mEq/l (+/-2.0); Carboxyhemoglobin 0.5 % THb (0-2.0); Fractional Inspired Oxygen 30 %; HCO3 ABG 25.1 mEq/l (22.0-26.0); Methemoglobin ABG 0.3 %THb (0-1.5); Oxygen Content ABG 17.3 %vol (16.0-22.0); Oxygen Saturation ABG 97.3 % (95.0-100.0); Oxyhemoglobin 96.2 % THb (90.0-100.0); PCO2 ABG 35.2 mmHg (35.0-45.0); PO2 ABG 89.5 mmHg (80.0-100.0); PO2 FiO2 Ratio Arterial Blood 2.98 %; Total Hemoglobin 12.7 g/dL (12.0-18.0); pH ABG 7.471 (7.350-7.450)
[2024-04-21 05:56] LABS: Arterial Blood Gas Vent Mode CMV; Arterial Blood Gas Ventilator rate 16 /MIN; Device VENTILATOR; Modified Allen's Test Unable to perform; Site Drawn RIGHT RADIAL
[2024-04-21 05:57] LABS: Arterial Blood Gas PEEP 8 cmH2O; Arterial Blood Gas Tidal Volume 450 ml
[2024-04-21 06:01] LABS: Alanine Aminotransferase 59 U/L (6-50); Albumin Level 3.5 g/dL (3.5-5.1); Alkaline Phosphatase 63 U/L (38-126); Anion Gap 10 mmol/L (4-12); Aspartate Amino Transferase 50 U/L (17-59); Blood Urea Nitrogen 39 mg/dL (9-20); Calcium 8.8 mg/dL (8.4-10.2); Carbon Dioxide 25 mmol/L (22-30); Chloride 105 mmol/L (98-107); Estimated CRCL calculation 72 ml/min; Estimated Glomerular Filt Rate > 60; Glucose 120 mg/dL (65-110); Magnesium 2.1 mg/dL (1.6-2.3); Phosphorus 2.6 mg/dL (2.5-4.5); Potassium 3.4 mmol/L (3.4-5.0); Sodium 140 mmol/L (137-145)
[2024-04-21 06:03] LABS: Anisocytosis 1+; Microcytosis 1+ (NORMAL); Platelet Estimate Adequate (Adequate); Schistocytes None Seen
[2024-04-21] MEDS: HEPARIN SODIUM 5,000 UNITS/ML VIAL 5000 UNITS SUB-Q ×3 (06:10→20:58)
[2024-04-21] MEDS: SUCRALFATE SUSP 100 MG/ML 10 ML UDC 1000 MG PO ×2 (06:10→16:18)
[2024-04-21] MEDS: CENTRAL LINE FLUSH 10 ML IV PUSH ×3 (06:11→20:26)
[2024-04-21] MEDS: ACETAMINOPHEN 500 MG TABLET PO (06:50)
[2024-04-21] MEDS: DORNASE ALFA INH SOLN 1 MG/ML 2.5 ML AMP 2.5 MG INHALATION ×2 (07:05→20:49)
--- NOTE | 2024-04-21 07:24 | PC.NURSE ---
Precedex 1900 0.7 Rass +0 2000 0.7 Rass +0 2200 0.7 Rass +0 0000 0.7 Rass +0 0200 0.7 Rass +0 0400 0.7 Rass +0 0600 0.7 Rass +0 See vitals signs flowsheet for Heart rate and respiratory documentation
[2024-04-21] MEDS: POTASSIUM CHLORIDE 20 MEQ PACKET (FOR LIQUID) 40 MEQ FEED TUBE (08:16)
[2024-04-21] MEDS: PANTOPRAZOLE SODIUM IV 40 MG VIAL IV PUSH ×2 (08:17→20:25)
[2024-04-21] MEDS: polyethylene glycoL 3350 17 GM POWD.PACK PO (08:17)
[2024-04-21] MEDS: OLMESARTAN MEDOXOMIL 20 MG TABLET 40 MG PO (08:17)
--- NOTE | 2024-04-21 08:18 | PM.PNGS ---
Progress Note: A&P Assessment and Plan (1) Abnormal findings on imaging of biliary tract: Code(s): R93.2 - Abnormal findings on diagnostic imaging of liver and biliary tract Status: Acute Assessment and Plan: Much improved today. Denies abdominal pain. No abdominal tenderness. LFTs minimally abnormal. Still has a left shift on his white blood cell count. Will get ultrasound of gallbladder today. Discussed with Dr. Ponce. (2) Acute respiratory failure: Qualifiers: Respiratory failure complication: hypoxia Qualified Code(s): J96.01 - Acute respiratory failure with hypoxia Code(s): J96.00 - Acute respiratory failure, unspecified whether with hypoxia or hypercapnia Status: Acute (3) Aspiration pneumonia: Qualifiers: Aspiration pneumonia type: due to regurgitated food Laterality: left Lung location: unspecified part of lung Qualified Code(s): J69.0 - Pneumonitis due to inhalation of food and vomit Code(s): J69.0 - Pneumonitis due to inhalation of food and vomit Status: Acute Subjective Subjective Date/Time Seen: 04/21/24 08:18 Interval history: Still intubated but awake and alert, nods to questions. Denies abdominal pain. Review of Systems Review of Systems: ROS unobtainable: Yes unobtainable due to endotracheal tube Exam Const: General: comfortable, alert and awake GI: Inspection: distended and no scars GI Palp: Yes Soft to palpation, No Tenderness to palpation present (GI), No Guarding due to palpation present (GI) and No Rebound tenderness present Auscultation: Hypoactive bowel sounds present Objective Data Vital Signs Vital Signs: Vital Signs - 24 hr 04/20/24 08:23 04/20/24 08:23 04/20/24 08:43 Temperature Pulse Rate 75 75 80 Respiratory Rate 22 H 22 H Blood Pressure Pulse Oximetry 96 Oxygen Delivery Mechanical Ventilation Fraction of Inspired Oxygen 30 04/20/24 09:00 04/20/24 11:08 04/20/24 11:08 Temperature 36.5 C Pulse Rate 77 65 65 Respiratory Rate 23 H 18 Blood Pressure 153/88 H Pulse Oximetry 95 97 97 Oxygen Delivery Mechanical Ventilation Mechanical Ventilation Fraction of Inspired Oxygen 30 30 04/20/24 12:19 04/20/24 14:03 04/20/24 14:03 Temperature Pulse Rate 76 65 65 Respiratory Rate 24 H Blood Pressure Pulse Oximetry 94 94 Oxygen Delivery Mechanical Ventilation Mechanical Ventilation Fraction of Inspired Oxygen 30 30 04/20/24 14:11 04/20/24 12:00 04/20/24 10:00 Temperature Pulse Rate 79 68 Respiratory Rate 21 H Blood Pressure Pulse Oximetry Oxygen Delivery Fraction of Inspired Oxygen 30 04/20/24 12:00 04/20/24 12:00 04/20/24 10:00 Temperature 36.4 C L Pulse Rate 80 69 Respiratory Rate 21 H Blood Pressure 145/72 H Pulse Oximetry 96 Oxygen Delivery Mechanical Ventilation Fraction of Inspired Oxygen 30 04/20/24 11:00 04/20/24 12:00 04/20/24 13:00 Temperature 36.6 C 37.0 C 37.3 C Pulse Rate 64 65 75 Respiratory Rate 21 H 18 21 H Blood Pressure 170/97 H 162/95 H 149/90 H Pulse Oximetry 96 98 96 Oxygen Delivery Fraction of Inspired Oxygen 04/20/24 14:00 04/20/24 14:00 04/20/24 15:00 Temperature 37.7 C H 37.7 C H Pulse Rate 73 75 74 Respiratory Rate 20 23 H Blood Pressure 143/80 H 141/79 H Pulse Oximetry 95 95 Oxygen Delivery Fraction of Inspired Oxygen 04/20/24 16:00 04/20/24 17:00 04/20/24 18:00 Temperature 37.8 C H 37.9 C H 38.1 C H Pulse Rate 71 72 74 Respiratory Rate 23 H 24 H 24 H Blood Pressure 157/84 H 141/85 H 154/86 H Pulse Oximetry 95 94 94 Oxygen Delivery Fraction of Inspired Oxygen 04/20/24 16:00 04/20/24 16:00 04/20/24 17:07 Temperature Pulse Rate 77 Respiratory Rate Blood Pressure Pulse Oximetry 95 Oxygen Delivery Mechanical Ventilation Mechanical Ventilation Fraction of Inspired Oxygen 30 30 30 04/20/24 19:00 04/20/24 16:00 04/20/24
[2024-04-21 09:47] LABS: Alveolar/Arterial O2 Gradient 79.4 mmHg; Base Excess ABG -0.4 mEq/l (+/-2.0); Carboxyhemoglobin 0.5 % THb (0-2.0); Device VENTILATOR; Fractional Inspired Oxygen 30 %; HCO3 ABG 23.8 mEq/l (22.0-26.0); Methemoglobin ABG 0.3 %THb (0-1.5); Oxygen Content ABG 18.3 %vol (16.0-22.0); Oxygen Saturation ABG 97.1 % (95.0-100.0); Oxyhemoglobin 96.2 % THb (90.0-100.0); PCO2 ABG 37.4 mmHg (35.0-45.0); PO2 ABG 90.6 mmHg (80.0-100.0); PO2 FiO2 Ratio Arterial Blood 3.02 %; Site Drawn RIGHT BRACHIAL; Total Hemoglobin 13.5 g/dL (12.0-18.0); pH ABG 7.421 (7.350-7.450)
[2024-04-21 09:48] LABS: Arterial Blood Gas Vent Mode SPONTANEOUS
[2024-04-21 09:49] LABS: Arterial Blood Gas PEEP 5 cmH2O; Arterial Blood Gas Pressure Support 8 cmH2O
[2024-04-21] MEDS: hydrALAZINE HCL 20 MG/ML VIAL 10 MG IV PUSH ×2 (10:16→16:17)
--- NOTE | 2024-04-21 10:34 | PC.NURSE ---
Precedex infusion titration 0800 0.7 Rass +0 1000 0.7 Rass +0 1015 Pt extubated. Infusion stopped and order d/c'd. Precedex bag had 10ml of medication left, contents emptied and wasted. Witnessed by Ashlie Stewart RN. See vitals signs flowsheet for Heart rate and respiratory documentation
--- NOTE | 2024-04-21 11:32 | PCFNICU ---
ICU Rounding Note: Pt current nutrition is Tube feeding diet: To be discontinued. Nutrition recommendation: Discontinue tube feeding order and pt to be NPO until after ultrasound Last recorded weight is 98.2 kg. Bowel Motility: Last BM 04/15/24- Bowel regimen with miralax and possible enema later Labs Reviewed: Hgb 12.2, Hct 37.3, BUN 39, Glu 120, TRIG 382 Meds Noted: Precedex is discontinued. Reglan, miralax Skin: No skin issues Additional Notes: Pt is extubated this morning. OG tube was pulled. Discussed in rounds. Following daily in ICU rounds. Will monitor weight, labs, skin, tube feeding tolerance, meds every Sunday and Sunday. .
[2024-04-21] MEDS: FUROSEMIDE INJ 40 MG/4 ML VIAL IV PUSH (11:37)
--- NOTE | 2024-04-21 11:51 | WPDINTPN ---
Progress Note: A&P Assessment and Plan (1) Acute respiratory failure: Qualifiers: Respiratory failure complication: hypoxia Qualified Code(s): J96.01 - Acute respiratory failure with hypoxia Code(s): J96.00 - Acute respiratory failure, unspecified whether with hypoxia or hypercapnia Status: Acute Assessment and Plan: Patient initially presented to the ED on 04/14 with complains of hematemesis, on 04/16 he had upper endoscopy, during which he aspirated gastric contents into the lungs, O2 sats dropped to the 50s, anesthesia intubated the patient with size 6.5 ETT. Patient was transferred to the ICU -upon arrival to the ICU, once he was placed on the ventilator, patient was not getting adequate tidal volumes and a large air leak despite putting in a lot of air in the ETT balloon. I decided to reintubate the patient with a size 8.0 ET tube. At that time I noted that the NG tube was in trachea, which was pulled out. A new OG tube was reinserted using a glide scope in the stomach. -04/16; intubated -respiratory failure likely related to aspiration -chest x-ray and ABGs reviewed, ventilator adjusted, - continue Zosyn (04/16) -04/18: Vancomycin discontinued -continue bronchodilators -continue Precedex infusion 04/18: Patient spike fevers, was given Tylenol, blood cultures obtained 04/19: Patient tolerated PSV 10/5 approximately 10 hours 04/20: Worsening chest x-ray, Reordered vancomycin, did not tolerated PSV 10/5 for more than couple of hours this morning and had to be placed back on CMV. Diurese today with Lasix 40 mg IV x1 -patient currently on Precedex infusion as he was getting agitated through the night 04/21: Chest x-ray looks much improved, patient diuresed well, will repeat diuresis. Place patient on SBT and evaluate for extubation 04/17/2024: CT scan of the chest/abdomen/pelvis, noncontrast No evidence of bowel perforation. Extensive left lung consolidation, compatible with pneumonia. Mild patchy consolidation right lung base consolidation pneumonia versus atelectasis. Probable gallbladder sludge. Questionable mild wall thickening of the hepatic flexure and proximal transverse colon. Correlate for infectious/inflammatory colitis. Enlarged prostate gland (2) Septic shock: Code(s): A41.9 - Sepsis, unspecified organism; R65.21 - Severe sepsis with septic shock Status: Acute Assessment and Plan: Patient developed hypotension, acute kidney injury, lactic acidosis and is in septic shock -patient received adequate IV fluids -currently on sodium bicarb infusion which will be discontinued -albumin for intravascular volume repletion -continue antibiotics as above -04/16: Preliminary blood cultures are negative x2 -04/17: Sputum cultures negative x2 -leukocytosis with bandemia resolved -lactic acid trending down, almost close to normal, continue to monitor -off Brian-Synephrine and vasopressin, -off Levophed 04/18; patient spiked fevers in in the evening of . Repeated blood cultures -will check for COVID, RSV and flu -left middle finger paronychia -? acalculous cholecystitis which could be related to septic shock -appreciate surgery evaluation and recommendations, right upper quadrant ultrasound has been ordered by surgery (3) Acute kidney injury: Code(s): N17.9 - Acute kidney failure, unspecified Status: Acute Assessment and Plan: Acute kidney injury likely related to septic shock, hypotension, hypovolemia -patient adequately fluid-resuscitated - status post sodium bicarb infusion -off all IV fluids as he was adequately fluid-resuscitated and positive fluid balance -albumin for intravascular volume repletion -CK levels are normal, urine eosinophils were negative -urine lytes did not show prerenal picture -continue to monitor urine output, electrolytes and renal function -urine output has been good, creatinine has normalized 04/17: renal ultrasound 1: Gallbladder w
[2024-04-21] MEDS: ACETAMINOPHEN 650 MG SUPPOSITORY RECTAL ×3 (12:35→22:50)
[2024-04-21 14:04] LABS: Glucose Point of Care 87 mg/dl (65-105)
--- NOTE | 2024-04-21 15:08 | PM.IMPN ---
Progress Note: A&P Assessment and Plan (1) Abnormal findings on imaging of biliary tract: Code(s): R93.2 - Abnormal findings on diagnostic imaging of liver and biliary tract Status: Acute (2) Septic shock: Code(s): A41.9 - Sepsis, unspecified organism; R65.21 - Severe sepsis with septic shock Status: Acute (3) Acute respiratory failure: Qualifiers: Respiratory failure complication: hypoxia Qualified Code(s): J96.01 - Acute respiratory failure with hypoxia Code(s): J96.00 - Acute respiratory failure, unspecified whether with hypoxia or hypercapnia Status: Acute (4) Acute kidney injury: Code(s): N17.9 - Acute kidney failure, unspecified Status: Acute (5) Gastroesophageal reflux disease: Qualifiers: Esophagitis presence: esophagitis presence not specified Qualified Code(s): K21.9 - Gastro-esophageal reflux disease without esophagitis Code(s): K21.9 - Gastro-esophageal reflux disease without esophagitis Status: Acute (6) Acute upper GI bleed: Code(s): K92.2 - Gastrointestinal hemorrhage, unspecified Status: Acute (7) Hyperlipidemia: Code(s): E78.5 - Hyperlipidemia, unspecified Status: Acute (8) Hypertension: Code(s): I10 - Essential (primary) hypertension Status: Acute (9) Nausea & vomiting: Qualifiers: Vomiting type: hematemesis Qualified Code(s): K92.0 - Hematemesis Code(s): R11.2 - Nausea with vomiting, unspecified Status: Acute (10) Electrolyte imbalance: Code(s): E87.8 - Other disorders of electrolyte and fluid balance, not elsewhere classified Status: Acute (11) Acalculous cholecystitis: Code(s): K81.9 - Cholecystitis, unspecified Status: Acute (12) Paronychia: Status: Acute Plan This is a 64-year-old male with PMH GERD, hiatal hernia, hyperlipidemia, essential hypertension, diverticulosis, internal hemorrhoids who presents to [place] ER complaints of bloody vomitus. The patient had been taking extra doses of omeprazole recently due to increasing GERD symptoms. He had also been in contact with primary doctor and he was started on vonoprazan. Patient also noted epigastric and left upper quadrant abdominal discomfort with nausea. He has been on Tirzepatide at home. Patient denied NSAIDs, aspirin, blood thinner use, heavy alcohol use. Patient admitted on 04/15/2024, on 04/16 pt underwent EGD which demonstrated a large amount of food or beds or seen in the esophagus in the stomach. The larger particles could not be suction. The endoscope was removed and the patient was intubated for airway protection. There was moderate esophagitis with edematous change, biopsies taken from the lower 3rd esophagus. Moderate gastritis visualized with erythematous and edematous changes but no ulcers. Multiple biopsies taken. Duodenum within normal limits. Decision made to keep the patient intubated and he was subsequently returned to ICU. Reglan given. Gastroparesis likely caused by GLP 1 agonist. Continue to monitor fever curve. Continue antibiotics. Pending gallbladder ultrasound. # acute respiratory failure # aspiration pneumonitis/pneumonia -status: Acute, severe -patient presented with hematemesis. Per report he had aspirational event being EGD. Patient was intubated during EGD and admitted to ICU on 04/16. Patient had an air leak on arrival to ICU and ET tube placed by kennel keeper with a size 8. Per report, NG tube noted to be in the trachea. NG tube was then pulled out and OG tube was placed using a GlideScope. -continue mechanical ventilation, hemodynamic support, sedation per kennel keeper. Daily chest x-ray and ABGs. -04/20: did not tolerate PSV /, placed back on CMV -currently on scheduled bronchodilators, pulmozyme -Zosyn started on 04/16 -vancomycin discontinued, restarted on 04/20 due to worsening chest x-ray # septic shoc
[2024-04-21] MEDS: MEROPENEM 1 GM/NS 100 ML 1 GM/100 ML BAG IVPB ×2 (15:38→20:57)
[2024-04-21 17:58] LABS: Glucose Point of Care 89 mg/dl (65-105)
--- NOTE | 2024-04-21 18:46 | WPDGIPROGNO ---
Progress Note: A&P Assessment and Plan (1) Nausea & vomiting: Qualifiers: Vomiting type: hematemesis Qualified Code(s): K92.0 - Hematemesis Code(s): R11.2 - Nausea with vomiting, unspecified Status: Acute Assessment and Plan: probably triggered by recent use of glp1 large amount of bezoar in esophagus, this was suctioned but also required intubation extubated, doing better (2) Gastroparesis: Code(s): K31.84 - Gastroparesis Status: Acute Assessment and Plan: probably due to recent glp1 this medication should be discontinued also noted esophagitis/gastritis probably from food stasis, on iv protonix now (3) Acalculous cholecystitis: Code(s): K81.9 - Cholecystitis, unspecified Status: Acute Assessment and Plan: ultrasound reviewed, still with fever despite abx no abdominal pain but abnormal GB ultrasound surgery on board (4) Acute respiratory failure: Qualifiers: Respiratory failure complication: hypoxia Qualified Code(s): J96.01 - Acute respiratory failure with hypoxia Code(s): J96.00 - Acute respiratory failure, unspecified whether with hypoxia or hypercapnia Status: Acute Assessment and Plan: from pneumonia but resolved (5) Aspiration pneumonia: Qualifiers: Aspiration pneumonia type: due to regurgitated food Laterality: left Lung location: unspecified part of lung Qualified Code(s): J69.0 - Pneumonitis due to inhalation of food and vomit Code(s): J69.0 - Pneumonitis due to inhalation of food and vomit Status: Acute Assessment and Plan: on iv abx (6) Early satiety: Code(s): R68.81 - Early satiety Status: Acute Assessment and Plan: explained by EGD findings and use of GLP1 Subjective Date/time seen: 04/21/24 18:46 Interval history: extubated, doing better but still with fever Review of Systems Review of Systems: All systems reviewed & are unremarkable except as noted in HPI and below Exam Const: General: comfortable, alert and awake HENMT: Face/Nose/Sinus: Normal nares present Eyes: General: appearance normal, both eyes and all related structures Neck: Neck: supple Resp: Effort & Inspection: normal respiratory effort Auscultation: no wheezes Cardio: Rate: regular rate GI: Inspection: distended and no scars GI Palp: Yes Soft to palpation, No Tenderness to palpation present (GI), No Guarding due to palpation present (GI) and No Rebound tenderness present Auscultation: Hypoactive bowel sounds present Skin: General skin exam: normal color Neuro: Speech: normal speech Extrem: General: normal to inspection Psych: Mental Status: mental status grossly normal Objective Data Vital Signs Vital Signs: Vital Signs - 24 hr 04/20/24 19:00 04/20/24 20:00 04/20/24 20:00 Temperature 100.6 F H Pulse Rate 84 76 76 Respiratory Rate 23 H 24 H Blood Pressure 144/81 H Pulse Oximetry 94 94 Oxygen Delivery Mechanical Ventilation Oxygen Flow Rate Fraction of Inspired Oxygen 30 04/20/24 20:15 04/20/24 20:00 04/20/24 20:00 Temperature Pulse Rate 81 81 Respiratory Rate 25 H 25 H Blood Pressure Pulse Oximetry 94 Oxygen Delivery Mechanical Ventilation Oxygen Flow Rate Fraction of Inspired Oxygen 30 30 04/20/24 20:00 04/20/24 22:00 04/21/24 00:00 Temperature 100.7 F H 100.4 F H Pulse Rate 80 77 Respiratory Rate 23 H 23 H Blood Pressure 150/80 H 144/77 H Pulse Oximetry 93 94 Oxygen Delivery Oxygen Flow Rate Fraction of Inspired Oxygen 30 04/21/24 00:00 04/21/24 00:00 04/20/24 23:10 Temperature 100 F H Pulse Rate 75 81 72 Respiratory Rate 23 H 25 H Blood Pressure 138/78 Pulse Oximetry 94 94 95 Oxygen Delivery Mechanical Ventilation Mechanical Ventilation Oxygen Flow Rate Fraction of Inspired Oxygen 30 30 04/21/24 02:33 04/21/24 02:34 04/21/24 02:38 Temperature Pu
[2024-04-21] MEDS: ONDANSETRON INJ 4 MG/2 ML VIAL IV PUSH (19:56)
[2024-04-21 23:13] LABS: Glucose Point of Care 92 mg/dl (65-105)
[2024-04-22] VITALS (30 sets, daily range): BP systolic 134–181; BP diastolic 68–95; PULSE 69–110; RESP 16–28; TEMP 37.3–37.9; O2SAT 95–100
[2024-04-22] MEDS: ONDANSETRON INJ 4 MG/2 ML VIAL IV PUSH ×2 (01:14→09:14)
[2024-04-22] MEDS: METOCLOPRAMIDE HCL INJ 10 MG/2 ML VIAL IV PUSH ×5 (01:34→23:04)
[2024-04-22] MEDS: LEVALBUTEROL NEB 1.25 MG/3 ML 0.63 MG INHALATION ×4 (02:16→19:40)
[2024-04-22] MEDS: IPRATROPIUM BR 0.02% INH SOLN 0.5 MG/2.5 ML VIAL INHALATION ×4 (02:17→19:40)
[2024-04-22] MEDS: HEPARIN SODIUM 5,000 UNITS/ML VIAL 5000 UNITS SUB-Q ×3 (05:05→21:06)
[2024-04-22] MEDS: CENTRAL LINE FLUSH 10 ML IV PUSH ×3 (05:06→21:08)
[2024-04-22] MEDS: MEROPENEM 1 GM/NS 100 ML 1 GM/100 ML BAG IVPB ×3 (05:18→21:07)
[2024-04-22 05:19] LABS: Basophils Absolute Auto 0.1 K/mm3 (0.0-0.1); Basophils Percent Auto 0.5 % (0.2-1.2); Eosinophils Percent Auto 0.3 % (0-4.4); Hematocrit 37.7 % (42.0-52.0); Hemoglobin 12.4 g/dL (14.0-18.0); Immature Granulocyte Absolute 0.43 K/mm3 (0.00-0.031); Immature Granulocyte Percent A 4.6 % (0-0.5); Lymphocytes Absolute Auto 0.91 K/mm3 (0.9-3.2); Lymphocytes Percent Auto 9.8 % (18.3-44.2); Mean Corpuscular HGB Conc 32.9 g/dl (32-36); Mean Corpuscular Hemoglobin 30.9 pg (26-34); Mean Platelet Volume 10.8 fl (7.4-10.4); Monocytes Absolute Auto 0.8 K/mm3 (0.1-0.6); Monocytes Percent Auto 8.1 % (2.6-8.5); Neutrophils Absolute Auto 7.2 K/mm3 (1.3-6.7); Neutrophils Percent Auto 76.7 % (45.5-73.1); Nucleated Red Blood Cells Perc 0.2 % (0.0-0.2); Platelet Count Result 112 k/mm3 (150-375); Red Blood Count 4.01 M/mm3 (4.6-6.20); Red Cell Distribution Width 14.8 % (11.5-14.5); White Blood Count 9.3 K/mm3 (4.5-10.0)
[2024-04-22 05:32] LABS: Alanine Aminotransferase 65 U/L (6-50); Albumin Level 3.8 g/dL (3.5-5.1); Alkaline Phosphatase 53 U/L (38-126); Anion Gap 15 mmol/L (4-12); Aspartate Amino Transferase 43 U/L (17-59); Bilirubin,Total 1.7 mg/dL (0.2-1.3); Blood Urea Nitrogen 39 mg/dL (9-20); Calcium 8.8 mg/dL (8.4-10.2); Carbon Dioxide 22 mmol/L (22-30); Chloride 106 mmol/L (98-107); Estimated CRCL calculation 70 ml/min; Estimated Glomerular Filt Rate > 60; Glucose 90 mg/dL (65-110); Magnesium 2.2 mg/dL (1.6-2.3); Phosphorus 4.9 mg/dL (2.5-4.5); Potassium 3.7 mmol/L (3.4-5.0); Sodium 143 mmol/L (137-145)
[2024-04-22] MEDS: LORazepam INJ (*CRX) 2 MG/ML VIAL 1 MG IV PUSH (07:59)
--- NOTE | 2024-04-22 08:25 | WPDINTPN ---
Progress Note: A&P Assessment and Plan (1) Acute respiratory failure: Qualifiers: Respiratory failure complication: hypoxia Qualified Code(s): J96.01 - Acute respiratory failure with hypoxia Code(s): J96.00 - Acute respiratory failure, unspecified whether with hypoxia or hypercapnia Status: Acute Assessment and Plan: Patient initially presented to the ED on 04/14 with complains of hematemesis, on 04/16 he had upper endoscopy, during which he aspirated gastric contents into the lungs, O2 sats dropped to the 50s, anesthesia intubated the patient with size 6.5 ETT. Patient was transferred to the ICU -upon arrival to the ICU, once he was placed on the ventilator, patient was not getting adequate tidal volumes and a large air leak despite putting in a lot of air in the ETT balloon. I decided to reintubate the patient with a size 8.0 ET tube. At that time I noted that the NG tube was in trachea, which was pulled out. A new OG tube was reinserted using a glide scope in the stomach. -04/16; intubated, respiratory failure likely related to aspiration -04/21: Extubated -04/20 restarted vancomycin 04/21; switched Zosyn to meropenem 04/18: Patient spike fevers, was given Tylenol, blood cultures obtained 04/20: Worsening chest x-ray, Reordered vancomycin, did not tolerated PSV 10/5 for more than couple of hours this morning and had to be placed back on CMV. Diurese today with Lasix 40 mg IV x1 04/21: Successfully extubated -currently on 1 L nasal cannula with adequate O2 sats -continue bronchodilators 04/17/2024: CT scan of the chest/abdomen/pelvis, noncontrast No evidence of bowel perforation. Extensive left lung consolidation, compatible with pneumonia. Mild patchy consolidation right lung base consolidation pneumonia versus atelectasis. Probable gallbladder sludge. Questionable mild wall thickening of the hepatic flexure and proximal transverse colon. Correlate for infectious/inflammatory colitis. Enlarged prostate gland (2) Septic shock: Code(s): A41.9 - Sepsis, unspecified organism; R65.21 - Severe sepsis with septic shock Status: Acute Assessment and Plan: Patient developed hypotension, acute kidney injury, lactic acidosis and is in septic shock -patient received adequate IV fluids -currently on sodium bicarb infusion which will be discontinued -albumin for intravascular volume repletion -continue antibiotics as above -04/16: Preliminary blood cultures are negative x2 -04/17: Sputum cultures negative x2 -leukocytosis with bandemia resolved -lactic acid trending down, almost close to normal, continue to monitor -off Brian-Synephrine and vasopressin, -off Levophed 04/18; patient spiked fevers in in the evening of . Repeated blood cultures -will check for COVID, RSV and flu -left middle finger paronychia -? acalculous cholecystitis which could be related to septic shock -appreciate surgery evaluation and recommendations, right upper quadrant ultrasound has been ordered by surgery 04/22: Continues to spike fevers, continue antibiotics, HIDA scan today 04/22: CT chest abdomen/pelvis CHEST: 1. Atypical or viral pneumonia with pneumonia in the left lower lobe and lingula. Minimal atelectasis versus pneumonia in the right lower lobe. Left pleural effusion. ABDOMEN/PELVIS: 1. Soft tissue density in the right kidney which is most likely complex cyst. Ultrasound evaluation advised. Otherwise bilateral renal cysts. 2. No evidence of appendicitis, diverticulitis or intestinal obstruction. 3. Sliding hiatus hernia. 4. Trace of fluid seen in the right paracolic gutter. Follow-up advised (3) Acute kidney injury: Code(s): N17.9 - Acute kidney failure, unspecified Status: Acute Assessment and Plan: Acute kidney injury likely related to septic shock, hypotension, hypovolemia -patient adequately fluid-resuscitated - status post sodium bicarb infusion -off all IV flu
[2024-04-22] MEDS: DORNASE ALFA INH SOLN 1 MG/ML 2.5 ML AMP 2.5 MG INHALATION (08:27)
[2024-04-22] MEDS: PANTOPRAZOLE SODIUM IV 40 MG VIAL IV PUSH ×2 (09:11→20:06)
--- NOTE | 2024-04-22 10:52 | PCNFU ---
Nutrition Follow-Up Complete: Suboptimal energy intake as related to mechanical ventilation as evidenced by NPO. Goal:Meet estimated nutritional needs. Pt not currently meeting goal, continue with same goal. Pt current nutrition is NPO. Nutrition recommendation: Advance diet when appropriate Last recorded weight is 96.4 kg. Bowel Motility: +BM 04/21 Labs Reviewed: Hgb:12.4, HCT:37.7, BUN:39, Phos:4.9 Meds Noted: reglan, miralax, heparin, protonix Skin:WNL Additional Notes: Pt remains extubated, NPO at this time for CT. Pt had significant vomiting last night, NGT placed for suction at this time. Will monitor weight, labs, skin, diet orders, meds. Follow daily in ICU rounds.
[2024-04-22 15:18] LABS: Vancomycin Trough 7.8 ug/mL (10.0-20.0)
[2024-04-22] MEDS: ACETAMINOPHEN 500 MG TABLET PO (15:28)
[2024-04-22] MEDS: VANCOMYCIN 1,750 MG/NS 500 ML 1,750 MG/500 ML BAG 250 MG IVPB (15:48)
--- NOTE | 2024-04-22 16:29 | PM.IMPN ---
Progress Note: A&P Assessment and Plan (1) Abnormal findings on imaging of biliary tract: Code(s): R93.2 - Abnormal findings on diagnostic imaging of liver and biliary tract Status: Acute (2) Septic shock: Code(s): A41.9 - Sepsis, unspecified organism; R65.21 - Severe sepsis with septic shock Status: Acute (3) Acute respiratory failure: Qualifiers: Respiratory failure complication: hypoxia Qualified Code(s): J96.01 - Acute respiratory failure with hypoxia Code(s): J96.00 - Acute respiratory failure, unspecified whether with hypoxia or hypercapnia Status: Acute (4) Acute kidney injury: Code(s): N17.9 - Acute kidney failure, unspecified Status: Acute (5) Gastroesophageal reflux disease: Qualifiers: Esophagitis presence: esophagitis presence not specified Qualified Code(s): K21.9 - Gastro-esophageal reflux disease without esophagitis Code(s): K21.9 - Gastro-esophageal reflux disease without esophagitis Status: Acute (6) Acute upper GI bleed: Code(s): K92.2 - Gastrointestinal hemorrhage, unspecified Status: Acute (7) Hyperlipidemia: Code(s): E78.5 - Hyperlipidemia, unspecified Status: Acute (8) Hypertension: Code(s): I10 - Essential (primary) hypertension Status: Acute (9) Nausea & vomiting: Qualifiers: Vomiting type: hematemesis Qualified Code(s): K92.0 - Hematemesis Code(s): R11.2 - Nausea with vomiting, unspecified Status: Acute (10) Electrolyte imbalance: Code(s): E87.8 - Other disorders of electrolyte and fluid balance, not elsewhere classified Status: Acute (11) Acalculous cholecystitis: Code(s): K81.9 - Cholecystitis, unspecified Status: Acute (12) Paronychia: Status: Acute Plan This is a 64-year-old male with PMH GERD, hiatal hernia, hyperlipidemia, essential hypertension, diverticulosis, internal hemorrhoids who presents to [facility] complaints of bloody vomitus. The patient had been taking extra doses of omeprazole recently due to increasing GERD symptoms. He had also been in contact with primary doctor and he was started on vonoprazan. Patient also noted epigastric and left upper quadrant abdominal discomfort with nausea. He has been on Tirzepatide at home. Patient denied NSAIDs, aspirin, blood thinner use, heavy alcohol use. Patient admitted on 04/15/2024, on 04/16 pt underwent EGD which demonstrated a large amount of food or beds or seen in the esophagus in the stomach. The larger particles could not be suction. The endoscope was removed and the patient was intubated for airway protection. There was moderate esophagitis with edematous change, biopsies taken from the lower 3rd esophagus. Moderate gastritis visualized with erythematous and edematous changes but no ulcers. Multiple biopsies taken. Duodenum within normal limits. Decision made to keep the patient intubated and he was subsequently returned to ICU. Reglan given. Gastroparesis likely caused by GLP 1 agonist. April 22: Extubated on 04/21. Antibiotics broadened to meropenem and vancomycin. Fever continues to plateau around 100.1. Unclear etiology. Chest x-ray appears stable. Mild sinusitis on head CT otherwise no acute abnormalities. Gallbladder ultrasound demonstrated nonspecific pericholecystic fluid. Fatty infiltration of the liver. Subsequently HIDA scan on 04/22 demonstrating normal filling of gallbladder, delayed clearance of hepatic activity but with no delay from blood pool to the small bowel. T bili 1.7, ALT 65, AST 43, alkaline phosphatase 53. Numbers are not very impressive. GI following. wonder if this is the side effect of the G LP 1 agonist. The half life of that is extremely long which could also be the reason for the patient's vomiting postextubation. continue Reglan # acute respiratory failure # aspiration pneumonitis/pneumonia -stat
--- NOTE | 2024-04-22 16:46 | PM.PNGS ---
Progress Note: A&P Assessment and Plan (1) Abnormal findings on imaging of biliary tract: Code(s): R93.2 - Abnormal findings on diagnostic imaging of liver and biliary tract Status: Acute Assessment and Plan: Imaging and exam not consistent with acute acalculous cholecystitis being present as a source of fever and persistent infection. Do not plan GB drainage or other intervention. Subjective Subjective Date/Time Seen: 04/22/24 16:46 Interval history: on ventilator, fevers better from yesterday Exam GI: Inspection: non-distended and scaphoid GI Palp: Yes Soft to palpation and No Tenderness to palpation present (GI) Objective Data Vital Signs Vital Signs: Vital Signs - 24 hr 04/21/24 18:00 04/21/24 18:01 04/21/24 18:25 Temperature 38.4 C H 38.3 C H Pulse Rate 89 85 Respiratory Rate 16 Blood Pressure 146/74 H Pulse Oximetry 95 Oxygen Delivery Oxygen Flow Rate 04/21/24 19:54 04/21/24 20:50 04/21/24 20:55 Temperature 38.3 C H Pulse Rate 73 73 Respiratory Rate 23 H 17 Blood Pressure Pulse Oximetry 100 Oxygen Delivery Nasal Cannula Oxygen Flow Rate 2.5 04/21/24 21:15 04/21/24 20:00 04/21/24 20:00 Temperature 38.2 C H Pulse Rate 92 89 89 Respiratory Rate 17 22 H 22 H Blood Pressure 132/67 Pulse Oximetry 92 92 Oxygen Delivery Nasal Cannula Oxygen Flow Rate 3 04/21/24 22:50 04/21/24 22:00 04/22/24 00:00 Temperature 37.9 C H 37.9 C H Pulse Rate 85 85 Respiratory Rate 27 H 27 H Blood Pressure 123/42 L Pulse Oximetry 97 97 Oxygen Delivery Nasal Cannula Oxygen Flow Rate 3 04/22/24 00:00 04/21/24 20:00 04/21/24 22:00 Temperature 37.7 C H Pulse Rate 82 89 85 Respiratory Rate 24 H Blood Pressure 145/74 H Pulse Oximetry 100 Oxygen Delivery Oxygen Flow Rate 04/22/24 00:00 04/22/24 02:00 04/22/24 02:00 Temperature 37.5 C Pulse Rate 81 70 71 Respiratory Rate 28 H Blood Pressure 134/68 Pulse Oximetry 98 Oxygen Delivery Oxygen Flow Rate 04/22/24 02:18 04/22/24 02:26 04/22/24 02:30 Temperature Pulse Rate 71 87 87 Respiratory Rate 20 17 17 Blood Pressure Pulse Oximetry 97 Oxygen Delivery Nasal Cannula Oxygen Flow Rate 1 04/22/24 04:00 04/22/24 04:00 04/22/24 04:00 Temperature 37.4 C Pulse Rate 84 84 81 Respiratory Rate 23 H 23 H Blood Pressure 150/68 H Pulse Oximetry 97 97 Oxygen Delivery Nasal Cannula Oxygen Flow Rate 1 04/22/24 06:00 04/22/24 06:00 04/22/24 08:28 Temperature 37.3 C Pulse Rate 76 80 70 Respiratory Rate 18 18 Blood Pressure 154/77 H Pulse Oximetry 98 Oxygen Delivery Oxygen Flow Rate 04/22/24 08:32 04/22/24 08:46 04/22/24 08:00 Temperature 37.3 C Pulse Rate 69 97 70 Respiratory Rate 18 18 22 H Blood Pressure 153/72 H Pulse Oximetry 97 97 Oxygen Delivery Nasal Cannula Oxygen Flow Rate 1 04/22/24 10:00 04/22/24 08:00 04/22/24 12:00 Temperature 37.4 C 37.7 C H Pulse Rate 92 71 83 Respiratory Rate 20 22 H Blood Pressure 164/75 H 150/77 H Pulse Oximetry 96 97 Oxygen Delivery Oxygen Flow Rate 04/22/24 08:00 04/22/24 10:00 04/22/24 12:00 Temperature Pulse Rate 92 80 Respiratory Rate Blood Pressure Pulse Oximetry 97 Oxygen Delivery Nasal Cannula Oxygen Flow Rate 1 04/22/24 12:00 04/22/24 14:00 04/22/24 14:00 Temperature 37.7 C H Pulse Rate 80 80 Respiratory Rate 26 H Blood Pressure 162/77 H Pulse Oximetry 97 97 Oxygen Delivery Nasal Cannula Oxygen Flow Rate 1 04/22/24 14:16 04/22/24 15:28 04/22/24 16:00 Temperature 37.8 C H 37.8 C H Pulse Rate 93 93 Respiratory Rate 25 H 16 Blood Pressure 176/95 H Pulse Oximetry 97 Oxygen Delivery Oxygen Flow Rate 04/22/24 16:00 04/22/24 16:00 Temperature Pulse Rate 96 Respiratory Rate Blood Pressure Pulse Oximetry 97 Oxygen Delivery Nasal Cannula Oxygen Flow Rate 1 Int
--- NOTE | 2024-04-22 17:33 | WPDGIPROGNO ---
Progress Note: A&P Assessment and Plan (1) Nausea & vomiting: Qualifiers: Vomiting type: hematemesis Qualified Code(s): K92.0 - Hematemesis Code(s): R11.2 - Nausea with vomiting, unspecified Status: Acute Assessment and Plan: probably triggered by recent use of glp1 large amount of bezoar in esophagus, this was suctioned but also required intubation OGT placed again after emesis, better now (2) Gastroparesis: Code(s): K31.84 - Gastroparesis Status: Acute Assessment and Plan: probably due to recent glp1 this medication should be discontinued also noted esophagitis/gastritis probably from food stasis, on iv protonix now (3) Acalculous cholecystitis: Code(s): K81.9 - Cholecystitis, unspecified Status: Acute Assessment and Plan: hida scan negative for cholecystitis, no plan for surgical intervention (4) Acute respiratory failure: Qualifiers: Respiratory failure complication: hypoxia Qualified Code(s): J96.01 - Acute respiratory failure with hypoxia Code(s): J96.00 - Acute respiratory failure, unspecified whether with hypoxia or hypercapnia Status: Acute Assessment and Plan: from pneumonia but resolved extubated repeat CT scan only pneumonia (5) Aspiration pneumonia: Qualifiers: Aspiration pneumonia type: due to regurgitated food Laterality: left Lung location: unspecified part of lung Qualified Code(s): J69.0 - Pneumonitis due to inhalation of food and vomit Code(s): J69.0 - Pneumonitis due to inhalation of food and vomit Status: Acute Assessment and Plan: on iv abx (6) Early satiety: Code(s): R68.81 - Early satiety Status: Acute Assessment and Plan: explained by EGD findings and use of GLP1 Subjective Date/time seen: 04/22/24 17:33 Interval history: had n/v, resolved after OGT was placed he is comfortable now Review of Systems Review of Systems: All systems reviewed & are unremarkable except as noted in HPI and below Exam Const: General: comfortable and no acute distress HENMT: Other: ngt in place Eyes: Pupils: Equal, round and reactive pupils present Neck: Neck: supple Resp: Effort & Inspection: normal respiratory effort Other: Coarse breath sounds Cardio: Rate: regular rate Rhythm: regular rhythm GI: GI Palp: Yes Soft to palpation and No Tenderness to palpation present (GI) Skin: General skin exam: normal color Neuro: Speech: normal speech Extrem: General: no edema Psych: Attitude: not belligerent Objective Data Vital Signs Vital Signs: Vital Signs - 24 hr 04/21/24 18:00 04/21/24 18:01 04/21/24 18:25 Temperature 101.1 F H 101.0 F H Pulse Rate 89 85 Respiratory Rate 16 Blood Pressure 146/74 H Pulse Oximetry 95 Oxygen Delivery Oxygen Flow Rate 04/21/24 19:54 04/21/24 20:50 04/21/24 20:55 Temperature 100.9 F H Pulse Rate 73 73 Respiratory Rate 23 H 17 Blood Pressure Pulse Oximetry 100 Oxygen Delivery Nasal Cannula Oxygen Flow Rate 2.5 04/21/24 21:15 04/21/24 20:00 04/21/24 20:00 Temperature 100.8 F H Pulse Rate 92 89 89 Respiratory Rate 17 22 H 22 H Blood Pressure 132/67 Pulse Oximetry 92 92 Oxygen Delivery Nasal Cannula Oxygen Flow Rate 3 04/21/24 22:50 04/21/24 22:00 04/22/24 00:00 Temperature 100.2 F H 100.3 F H Pulse Rate 85 85 Respiratory Rate 27 H 27 H Blood Pressure 123/42 L Pulse Oximetry 97 97 Oxygen Delivery Nasal Cannula Oxygen Flow Rate 3 04/22/24 00:00 04/21/24 20:00 04/21/24 22:00 Temperature 99.9 F H Pulse Rate 82 89 85 Respiratory Rate 24 H Blood Pressure 145/74 H Pulse Oximetry 100 Oxygen Delivery Oxygen Flow Rate 04/22/24 00:00 04/22/24 02:00 04/22/24 02:00 Temperature 99.5 F Pulse Rate 81 70 71 Respiratory Rate 28 H Blood Pressure 134/68 Pulse Oximetry 98 Oxygen Delivery
[2024-04-22] MEDS: hydrALAZINE HCL 20 MG/ML VIAL 10 MG IV PUSH (18:04)
[2024-04-22] MEDS: OLMESARTAN MEDOXOMIL 20 MG TABLET 40 MG PO (21:06)
[2024-04-22] MEDS: LABETALOL HCL INJ 100 MG/20 ML VIAL 20 MG IV PUSH (21:08)
[2024-04-23] VITALS (26 sets, daily range): BP systolic 148–184; BP diastolic 59–93; PULSE 81–107; RESP 14–30; TEMP 36.1–37.7; O2SAT 92–100
[2024-04-23] MEDS: hydrALAZINE HCL 20 MG/ML VIAL 10 MG IV PUSH (00:06)
[2024-04-23] MEDS: LEVALBUTEROL NEB 1.25 MG/3 ML 0.63 MG INHALATION ×4 (02:19→20:55)
[2024-04-23] MEDS: IPRATROPIUM BR 0.02% INH SOLN 0.5 MG/2.5 ML VIAL INHALATION ×4 (02:20→20:55)
[2024-04-23] MEDS: ACETAMINOPHEN 500 MG TABLET PO (02:43)
[2024-04-23] MEDS: LORazepam INJ (*CRX) 2 MG/ML VIAL 0.5 MG IV PUSH (02:44)
[2024-04-23] MEDS: METOPROLOL TARTRATE 50 MG TAB PO (02:44)
[2024-04-23] MEDS: VANCOMYCIN 1,750 MG/NS 500 ML 1,750 MG/500 ML BAG 250 MG IVPB ×2 (03:36→16:10)
[2024-04-23 03:47] LABS: Basophils Percent Auto 0.3 % (0.2-1.2); Eosinophils Absolute Auto 0.1 K/mm3 (0-0.3); Eosinophils Percent Auto 0.8 % (0-4.4); Hematocrit 37.3 % (42.0-52.0); Hemoglobin 12.4 g/dL (14.0-18.0); Immature Granulocyte Absolute 0.36 K/mm3 (0.00-0.031); Lymphocytes Absolute Auto 0.89 K/mm3 (0.9-3.2); Lymphocytes Percent Auto 9.9 % (18.3-44.2); Mean Corpuscular HGB Conc 33.2 g/dl (32-36); Mean Corpuscular Hemoglobin 30.5 pg (26-34); Mean Corpuscular Volume 91.6 fl (80-100); Mean Platelet Volume 10.3 fl (7.4-10.4); Monocytes Absolute Auto 0.8 K/mm3 (0.1-0.6); Monocytes Percent Auto 8.5 % (2.6-8.5); Neutrophils Absolute Auto 6.9 K/mm3 (1.3-6.7); Neutrophils Percent Auto 76.5 % (45.5-73.1); Platelet Count Result 228 k/mm3 (150-375); Red Blood Count 4.07 M/mm3 (4.6-6.20); Red Cell Distribution Width 14.7 % (11.5-14.5)
[2024-04-23 03:59] LABS: Alanine Aminotransferase 64 U/L (6-50); Albumin Level 3.8 g/dL (3.5-5.1); Alkaline Phosphatase 50 U/L (38-126); Anion Gap 12 mmol/L (4-12); Aspartate Amino Transferase 40 U/L (17-59); Bilirubin,Total 1.3 mg/dL (0.2-1.3); Blood Urea Nitrogen 33 mg/dL (9-20); Calcium 8.9 mg/dL (8.4-10.2); Carbon Dioxide 24 mmol/L (22-30); Chloride 109 mmol/L (98-107); Estimated CRCL calculation 70 ml/min; Estimated Glomerular Filt Rate > 60; Glucose 92 mg/dL (65-110); Magnesium 2.5 mg/dL (1.6-2.3); Phosphorus 3.5 mg/dL (2.5-4.5); Potassium 3.6 mmol/L (3.4-5.0); Sodium 145 mmol/L (137-145)
[2024-04-23] MEDS: HEPARIN SODIUM 5,000 UNITS/ML VIAL 5000 UNITS SUB-Q ×3 (05:03→21:06)
[2024-04-23] MEDS: METOCLOPRAMIDE HCL INJ 10 MG/2 ML VIAL IV PUSH (05:04)
[2024-04-23] MEDS: MEROPENEM 1 GM/NS 100 ML 1 GM/100 ML BAG IVPB ×3 (05:04→21:07)
[2024-04-23] MEDS: CENTRAL LINE FLUSH 10 ML IV PUSH ×3 (05:04→21:07)
[2024-04-23] MEDS: FUROSEMIDE INJ 40 MG/4 ML VIAL IV PUSH (08:00)
[2024-04-23] MEDS: POTASSIUM CHLORIDE 20 MEQ PACKET (FOR LIQUID) 40 MEQ FEED TUBE (08:00)
[2024-04-23] MEDS: OLMESARTAN MEDOXOMIL 20 MG TABLET 40 MG PO (08:00)
[2024-04-23] MEDS: ALPRAZolam (*CRX) 0.5 MG TABLET PO ×3 (08:01→16:10)
[2024-04-23] MEDS: amLODIPine BESYLATE 10 MG TABLET PO (08:01)
[2024-04-23] MEDS: PANTOPRAZOLE SODIUM IV 40 MG VIAL IV PUSH ×2 (08:01→21:06)
--- NOTE | 2024-04-23 08:16 | PM.CNPUL ---
Assessment and Plan Assessment and plan (1) Aspiration pneumonia: Qualifiers: Aspiration pneumonia type: due to regurgitated food Laterality: left Lung location: unspecified part of lung Qualified Code(s): J69.0 - Pneumonitis due to inhalation of food and vomit Code(s): J69.0 - Pneumonitis due to inhalation of food and vomit Status: Acute Assessment and Plan: Patient presented 04/14/24 with hematemesis and then had An EGD with esophageal bezoar, esophagitis, gastritis and then had aspiration of gastric contents and his 1st x-ray when he was intubated showed a minimal left base infiltrate. patient was initiated on Zosyn, developed shock requiring Levophed, Brian-Synephrine and vasopressin and acute kidney injury. chest x-ray worsened and CT scan on 04/17/2024 showed bilateral infiltrates with dense consolidations a left lower lobe and the dependent portions of the lingula. Patient was initially treated with Zosyn from 04/16 through 04/21. He remained febrile and was changed to meropenem on 04/21/2024. Vancomycin was restarted on 04/19/2024. Patient improved clinically and was extubated on 04/21/2024. He was on 1 L on 04/22. 04/23/2024: Patient is in the ICU, extubated with a NG tube in place on room air with saturations 94%. Blood pressure is 166/85, heart rate is 101. White blood cell count 9.0, hemoglobin 12.4, creatinine 1.0, weight 95.4 kg and he is cumulative 3.6 L positive since admission. Chest x-ray shows no change in his left greater than right infiltrates compared to 04/22. Patient's last fever was 04/22 at 8:00 p.m. The patient tells me he is breathing fine. He does have a cough and phlegm production. He states that the nebulizers do help him bring up secretions. He has no shortness of breath at rest. Etiology of patient's lung injury is consistent with aspiration with possible bacterial infection. Plan: Agree with treatment for possible bacterial infection and currently on vancomycin day 5 and status post Zosyn from 04/16 through 04/21 and meropenem started on 04/21, day 3. Leukocytosis has improved, oxygenation has improved and now on room air and chest x-ray is stable. From a pulmonary perspective if he continues to improve would plan on 7 days of vancomycin and 7 days of meropenem. Patient states the nebulized levalbuterol and ipratropium q.6 hours help him expectorate and I will continue these. I will add a Cornet flutter valve. Patient should get out of bed as tolerated. speech therapy evaluation has been ordered. physical therapy evaluation to begin ambulation has been ordered. Discussed with Dr. Ponce, will follow with you. History of Present Illness History of Present Illness Consult date: 04/23/24 Chief complaint: Upper GI Bleed Narrative: 04/23/2024: This is a new pulmonary consult for bilateral pulmonary infiltrates. 64-year-old with a history of hypertension, hyperlipidemia, GERD, hiatal hernia and gastritis presented to the hospital on 04/14/2024 with hematemesis. At baseline patient states he has no respiratory limitations in his activities of daily living and can walk at least 5 blocks without shortness of breath. He has no history of asthma, COPD or other respiratory conditions. He has no history of wheezing, cough or phlegm production. Patient smoked tobacco from age [age] at 1 pack per day. He denies vaping, illicit drug use, sandblasting, welding, asbestos were, professional painting or steel stave mill hand. He works in an office setting. The patient tells me that he had a sleep lab in 2014 and that it did demonstrate sleep apnea and he was titrated with a mask but never had this set up at home. He has not worn any CPAP or BiPAP. He states that he sleeps well, feels refreshed in the morning and takes no naps. Patient presented to the emergency room on 04/14/2024 with a blood pressure 151/119, heart rate of 108, respiratory rate 20 and room air saturations
--- NOTE | 2024-04-23 09:11 | WPDINTPN ---
Progress Note: A&P Assessment and Plan (1) Acute respiratory failure: Qualifiers: Respiratory failure complication: hypoxia Qualified Code(s): J96.01 - Acute respiratory failure with hypoxia Code(s): J96.00 - Acute respiratory failure, unspecified whether with hypoxia or hypercapnia Status: Acute Assessment and Plan: Patient initially presented to the ED on 04/14 with complains of hematemesis, on 04/16 he had upper endoscopy, during which he aspirated gastric contents into the lungs, O2 sats dropped to the 50s, anesthesia intubated the patient with size 6.5 ETT. Patient was transferred to the ICU -upon arrival to the ICU, once he was placed on the ventilator, patient was not getting adequate tidal volumes and a large air leak despite putting in a lot of air in the ETT balloon. I decided to reintubate the patient with a size 8.0 ET tube. At that time I noted that the NG tube was in trachea, which was pulled out. A new OG tube was reinserted using a glide scope in the stomach. -04/16; intubated, respiratory failure likely related to aspiration -04/21: Extubated -04/20 restarted vancomycin 04/21; switched Zosyn to meropenem 04/18: Patient spike fevers, was given Tylenol, blood cultures obtained 04/20: Worsening chest x-ray, Reordered vancomycin, did not tolerated PSV 10/5 for more than couple of hours this morning and had to be placed back on CMV. Diurese today with Lasix 40 mg IV x1 04/21: Successfully extubated -currently on 1 L nasal cannula with adequate O2 sats -continue bronchodilators [facility] patient when he leaves the ICU 04/17/2024: CT scan of the chest/abdomen/pelvis, noncontrast No evidence of bowel perforation. Extensive left lung consolidation, compatible with pneumonia. Mild patchy consolidation right lung base consolidation pneumonia versus atelectasis. Probable gallbladder sludge. Questionable mild wall thickening of the hepatic flexure and proximal transverse colon. Correlate for infectious/inflammatory colitis. Enlarged prostate gland (2) Septic shock: Code(s): A41.9 - Sepsis, unspecified organism; R65.21 - Severe sepsis with septic shock Status: Acute Assessment and Plan: Patient developed hypotension, acute kidney injury, lactic acidosis and is in septic shock -patient received adequate IV fluids -currently on sodium bicarb infusion which will be discontinued -albumin for intravascular volume repletion -continue antibiotics as above -04/16: Preliminary blood cultures are negative x2 -04/17: Sputum cultures negative x2 -leukocytosis with bandemia resolved -lactic acid trending down, almost close to normal, continue to monitor -off Brian-Synephrine and vasopressin, -off Levophed 04/18; patient spiked fevers in in the evening of . Repeated blood cultures -will check for COVID, RSV and flu -left middle finger paronychia -? acalculous cholecystitis which could be related to septic shock -appreciate surgery evaluation and recommendations, right upper quadrant ultrasound has been ordered by surgery 04/22: Continues to spike fevers, continue antibiotics, HIDA scan was negative 04/23: Fevers improving, will obtain lower extremity venous Dopplers 04/22: CT chest abdomen/pelvis CHEST: 1. Atypical or viral pneumonia with pneumonia in the left lower lobe and lingula. Minimal atelectasis versus pneumonia in the right lower lobe. Left pleural effusion. ABDOMEN/PELVIS: 1. Soft tissue density in the right kidney which is most likely complex cyst. Ultrasound evaluation advised. Otherwise bilateral renal cysts. 2. No evidence of appendicitis, diverticulitis or intestinal obstruction. 3. Sliding hiatus hernia. 4. Trace of fluid seen in the right paracolic gutter. Follow-up advised (3) Acute kidney injury: Code(s): N17.9 - Acute kidney failure, unspecified Status: Acute Assessment and Pl
[2024-04-23 11:52] LABS: NT Pro B Type Natriuretic Pept 2700 pg/mL (19.9-100)
[2024-04-23 12:11] LABS: Procalcitonin 1.5 ng/mL
--- NOTE | 2024-04-23 12:28 | PCOTNOTE ---
Awaiting ultrasound to rule out LE DVT. Will hold OT eval until results are back.
[2024-04-23] MEDS: SUCRALFATE SUSP 100 MG/ML 10 ML UDC 1000 MG PO ×3 (12:31→21:06)
--- NOTE | 2024-04-23 13:05 | PCPTNOTE ---
Awaiting ultrasound to rule out LE DVT prior to PT evaluation.
[2024-04-23] MEDS: DEXTROSE 10% 1,000 ML 20 ML IV CONT (13:37)
--- NOTE | 2024-04-23 14:22 | PCSTNOTE ---
Please refer to the Bedside Swallow Evaluation in the EMR. The above pleasant pt was seen for a swallow evaluation at bedside. The pt was positioned upright in the bed; spouse present. He was oriented and able to follow commands. Pt presents with an NGT; pt is NPO. Pt denies pre existing dysphagia. Pt was intubated 5-6 days; extubated on 04/21 Oral mucosa is dry causing inability to dry swallow on command per pt. Informal oral peripheral exam revealed lingual and labial structures to be within functional limits; clear vocal quality noted prior to oral trials. He was tested with ice chips only refusing applesauce, pudding, cracker and other trials of thin liquids. For ice chips: the oral stages appeared WNL. No leakage was noted. During the pharyngeal stage, swallow reflex appeared prompt but laryngeal elevation appeared reduced. Laryngeal elevation was possibly noted to improve with subsequent trials. No overt s/s of aspiration were exhibited; however, silent aspiration cannot be ruled at bedside and testing was very limited. General impression is functional swallow for ice chips. Recommendation: Ice chips only until re evaluation on 04/24. Thank you for this referral.
--- NOTE | 2024-04-23 14:23 | PCFNICU ---
ICU Rounding Note: Pt current nutrition is NPO. Last recorded weight is 95.4 kg, up from 94.1 kg. Bowel Motility: +BM reported 04/23 Labs Reviewed:BUN 33, Hct 37.3,Hgb 12.4 Meds Noted:Dextrose, Atrovent, Xanax Skin: WNL Additional Notes: Patient has been extubated. No plans for diet advancement today. Patient started on Dextrose today, with plans for Bedside Swallow tomorrow. Following daily in ICU rounds. Will monitor weight, labs, skin, tube feeding tolerance, meds every 3 days.
--- NOTE | 2024-04-23 15:28 | WPDGIPROGNO ---
Progress Note: A&P Assessment and Plan (1) Nausea & vomiting: Qualifiers: Vomiting type: hematemesis Qualified Code(s): K92.0 - Hematemesis Code(s): R11.2 - Nausea with vomiting, unspecified Status: Acute Assessment and Plan: probably triggered by recent use of glp1 large amount of bezoar in esophagus, this was suctioned but also required intubation OGT placed again after emesis having hiccups (2) Gastroparesis: Code(s): K31.84 - Gastroparesis Status: Acute Assessment and Plan: probably due to recent glp1 this medication should be discontinued also noted esophagitis/gastritis probably from food stasis, on iv protonix (3) Acute respiratory failure: Qualifiers: Respiratory failure complication: hypoxia Qualified Code(s): J96.01 - Acute respiratory failure with hypoxia Code(s): J96.00 - Acute respiratory failure, unspecified whether with hypoxia or hypercapnia Status: Acute Assessment and Plan: from pneumonia but resolved extubated repeat CT scan only pneumonia pulmonary on board (4) Aspiration pneumonia: Qualifiers: Aspiration pneumonia type: due to regurgitated food Laterality: left Lung location: unspecified part of lung Qualified Code(s): J69.0 - Pneumonitis due to inhalation of food and vomit Code(s): J69.0 - Pneumonitis due to inhalation of food and vomit Status: Acute Assessment and Plan: on iv abx (5) Early satiety: Code(s): R68.81 - Early satiety Status: Acute Assessment and Plan: explained by EGD findings and use of GLP1 NGT in place Subjective Date/time seen: 04/23/24 15:28 Interval history: ngt still in place, + hiccups Review of Systems Review of Systems: All systems reviewed & are unremarkable except as noted in HPI and below Exam Const: General: comfortable and no acute distress HENMT: Other: ngt in place Eyes: Pupils: Equal, round and reactive pupils present Neck: Neck: supple Resp: Effort & Inspection: normal respiratory effort Other: Coarse breath sounds Cardio: Rate: regular rate Rhythm: regular rhythm GI: GI Palp: Yes Soft to palpation and No Tenderness to palpation present (GI) Skin: General skin exam: normal color Neuro: Speech: normal speech Extrem: General: no edema Psych: Attitude: not belligerent Objective Data Vital Signs Vital Signs: Vital Signs - 24 hr 07/23/24 16:00 04/22/24 16:00 04/22/24 16:00 Temperature 100.1 F H Pulse Rate 93 96 Respiratory Rate 16 Blood Pressure 176/95 H Pulse Oximetry 97 97 Oxygen Delivery Nasal Cannula Oxygen Flow Rate 1 04/22/24 16:28 04/22/24 18:00 04/22/24 18:00 Temperature 100.2 F H 100.2 F H Pulse Rate 93 93 Respiratory Rate 20 Blood Pressure 181/89 H Pulse Oximetry 98 Oxygen Delivery Oxygen Flow Rate 04/22/24 19:41 04/22/24 19:54 04/22/24 19:55 Temperature Pulse Rate 105 H 106 H Respiratory Rate 20 22 H Blood Pressure Pulse Oximetry 97 Oxygen Delivery Nasal Cannula Oxygen Flow Rate 1 04/22/24 20:00 04/22/24 20:00 04/22/24 21:08 Temperature 99.8 F H Pulse Rate 108 H 106 H Respiratory Rate 22 H Blood Pressure 179/79 H Pulse Oximetry 96 95 Oxygen Delivery Nasal Cannula Oxygen Flow Rate 1 04/22/24 20:00 04/22/24 20:37 04/22/24 21:00 Temperature Pulse Rate 110 H Respiratory Rate Blood Pressure 179/82 H 173/80 H Pulse Oximetry Oxygen Delivery Oxygen Flow Rate 04/22/24 21:15 04/22/24 21:30 04/22/24 22:00 Temperature 99.6 F Pulse Rate 94 Respiratory Rate 22 H Blood Pressure 165/78 H 164/82 H 162/80 H Pulse Oximetry 96 Oxygen Delivery Oxygen Flow Rate 04/22/24 22:00 04/22/24 23:00 04/23/24 00:00 Temperature Pulse Rate 94 93 Respiratory Rate 25 H Blood Pressure 141/69 H Pulse Oximetry 100 Oxygen Delivery Nasal Cannula Oxyge
--- NOTE | 2024-04-23 16:00 | PC.NURSE ---
This patient, Handy Montes, was received from ICU3 on 04/23/24 at 1600. Patient/family oriented to unit policies and routines
[2024-04-23 18:22] LABS: Glucose Point of Care 107 mg/dl (65-105)
--- NOTE | 2024-04-23 18:27 | PM.IMPN ---
Progress Note: A&P Assessment and Plan (1) Abnormal findings on imaging of biliary tract: Code(s): R93.2 - Abnormal findings on diagnostic imaging of liver and biliary tract Status: Acute (2) Septic shock: Code(s): A41.9 - Sepsis, unspecified organism; R65.21 - Severe sepsis with septic shock Status: Acute (3) Acute respiratory failure: Qualifiers: Respiratory failure complication: hypoxia Qualified Code(s): J96.01 - Acute respiratory failure with hypoxia Code(s): J96.00 - Acute respiratory failure, unspecified whether with hypoxia or hypercapnia Status: Acute (4) Acute kidney injury: Code(s): N17.9 - Acute kidney failure, unspecified Status: Acute (5) Gastroesophageal reflux disease: Qualifiers: Esophagitis presence: esophagitis presence not specified Qualified Code(s): K21.9 - Gastro-esophageal reflux disease without esophagitis Code(s): K21.9 - Gastro-esophageal reflux disease without esophagitis Status: Acute (6) Acute upper GI bleed: Code(s): K92.2 - Gastrointestinal hemorrhage, unspecified Status: Acute (7) Hyperlipidemia: Code(s): E78.5 - Hyperlipidemia, unspecified Status: Acute (8) Hypertension: Code(s): I10 - Essential (primary) hypertension Status: Acute (9) Nausea & vomiting: Qualifiers: Vomiting type: hematemesis Qualified Code(s): K92.0 - Hematemesis Code(s): R11.2 - Nausea with vomiting, unspecified Status: Acute (10) Electrolyte imbalance: Code(s): E87.8 - Other disorders of electrolyte and fluid balance, not elsewhere classified Status: Acute (11) Acalculous cholecystitis: Code(s): K81.9 - Cholecystitis, unspecified Status: Acute (12) Paronychia: Status: Acute Plan This is a 64-year-old male with PMH GERD, hiatal hernia, hyperlipidemia, essential hypertension, diverticulosis, internal hemorrhoids who presents to [facility] complaints of bloody vomitus. The patient had been taking extra doses of omeprazole recently due to increasing GERD symptoms. He had also been in contact with primary doctor and he was started on vonoprazan. Patient also noted epigastric and left upper quadrant abdominal discomfort with nausea. He has been on Tirzepatide at home. Patient denied NSAIDs, aspirin, blood thinner use, heavy alcohol use. Patient admitted on 04/15/2024, on 04/16 pt underwent EGD which demonstrated a large amount of food or beds or seen in the esophagus in the stomach. The larger particles could not be suction. The endoscope was removed and the patient was intubated for airway protection. There was moderate esophagitis with edematous change, biopsies taken from the lower 3rd esophagus. Moderate gastritis visualized with erythematous and edematous changes but no ulcers. Multiple biopsies taken. Duodenum within normal limits. Decision made to keep the patient intubated and he was subsequently returned to ICU. Reglan given. Gastroparesis likely caused by GLP 1 agonist. # acute respiratory failure # aspiration pneumonitis/pneumonia -status: Acute, severe -patient presented with hematemesis. Per report he had aspirational event being EGD. Patient was intubated during EGD and admitted to ICU on 04/16. Patient had an air leak on arrival to ICU and ET tube placed by aircraft parts assembler with a size 8. Per report, NG tube noted to be in the trachea. NG tube was then pulled out and OG tube was placed using a GlideScope. -extubated on 04/22 -now on room air. Received Lasix 40 mg IV x1 at 04/23 due to elevated BNP at 2700 and since he was fluid positive since admission. -pulmonology consulted on 04/23. cornet flutter valve added. duonebs to continue. # septic shock # aspirational pna, paronychia -status: Acute, severe, resolved -developed hypotension, LUCILA, lactic acidosis. Leukocytosis with bandemia is resolved since 04/20 -status
[2024-04-23] MEDS: ACETAMINOPHEN 325 MG TABLET 650 MG PO (21:43)
[2024-04-24] VITALS (17 sets, daily range): BP systolic 117–153; BP diastolic 60–84; PULSE 80–98; RESP 16–20; TEMP 36.4–37.1; O2SAT 94–98
[2024-04-24 00:20] LABS: Glucose Point of Care 109 mg/dl (65-105)
[2024-04-24 04:10] LABS: Basophils Percent Auto 0.4 % (0.2-1.2); Eosinophils Absolute Auto 0.2 K/mm3 (0-0.3); Eosinophils Percent Auto 1.6 % (0-4.4); Hematocrit 39.3 % (42.0-52.0); Hemoglobin 12.9 g/dL (14.0-18.0); Immature Granulocyte Absolute 0.24 K/mm3 (0.00-0.031); Immature Granulocyte Percent A 2.2 % (0-0.5); Lymphocytes Absolute Auto 0.93 K/mm3 (0.9-3.2); Lymphocytes Percent Auto 8.3 % (18.3-44.2); Mean Corpuscular HGB Conc 32.8 g/dl (32-36); Mean Corpuscular Hemoglobin 30.5 pg (26-34); Mean Corpuscular Volume 92.9 fl (80-100); Mean Platelet Volume 10.4 fl (7.4-10.4); Monocytes Absolute Auto 0.8 K/mm3 (0.1-0.6); Monocytes Percent Auto 6.7 % (2.6-8.5); Neutrophils Percent Auto 80.8 % (45.5-73.1); Platelet Count Result 263 k/mm3 (150-375); Red Blood Count 4.23 M/mm3 (4.6-6.20); White Blood Count 11.2 K/mm3 (4.5-10.0)
[2024-04-24 04:22] LABS: Alanine Aminotransferase 76 U/L (6-50); Albumin Level 3.8 g/dL (3.5-5.1); Alkaline Phosphatase 49 U/L (38-126); Anion Gap 13 mmol/L (4-12); Aspartate Amino Transferase 42 U/L (17-59); Bilirubin,Total 1.6 mg/dL (0.2-1.3); Blood Urea Nitrogen 32 mg/dL (9-20); Calcium 8.6 mg/dL (8.4-10.2); Carbon Dioxide 21 mmol/L (22-30); Chloride 108 mmol/L (98-107); Estimated CRCL calculation 70 ml/min; Estimated Glomerular Filt Rate > 60; Glucose 101 mg/dL (65-110); Magnesium 2.6 mg/dL (1.6-2.3); Phosphorus 3.6 mg/dL (2.5-4.5); Potassium 3.4 mmol/L (3.4-5.0); Sodium 142 mmol/L (137-145)
[2024-04-24 04:50] LABS: Vancomycin Trough 15.9 ug/mL (10.0-20.0)
[2024-04-24 05:27] LABS: Glucose Point of Care 109 mg/dl (65-105)
[2024-04-24] MEDS: CENTRAL LINE FLUSH 10 ML IV PUSH ×3 (05:32→21:05)
[2024-04-24] MEDS: HEPARIN SODIUM 5,000 UNITS/ML VIAL 5000 UNITS SUB-Q ×3 (05:44→21:04)
[2024-04-24] MEDS: SUCRALFATE SUSP 100 MG/ML 10 ML UDC 1000 MG PO ×4 (05:44→21:05)
[2024-04-24] MEDS: VANCOMYCIN 1,750 MG/NS 500 ML 1,750 MG/500 ML BAG 250 MG IVPB ×2 (05:44→17:21)
[2024-04-24] MEDS: MEROPENEM 1 GM/NS 100 ML 1 GM/100 ML BAG IVPB ×3 (05:44→21:05)
[2024-04-24] MEDS: IPRATROPIUM BR 0.02% INH SOLN 0.5 MG/2.5 ML VIAL INHALATION ×4 (07:29→20:30)
[2024-04-24] MEDS: LEVALBUTEROL NEB 1.25 MG/3 ML 0.63 MG INHALATION ×4 (07:29→20:30)
[2024-04-24] MEDS: PANTOPRAZOLE SODIUM IV 40 MG VIAL IV PUSH ×2 (08:07→21:04)
[2024-04-24] MEDS: OLMESARTAN MEDOXOMIL 20 MG TABLET 40 MG PO (08:07)
[2024-04-24] MEDS: ALPRAZolam (*CRX) 0.5 MG TABLET PO ×3 (08:07→17:20)
[2024-04-24] MEDS: amLODIPine BESYLATE 10 MG TABLET PO (08:07)
--- NOTE | 2024-04-24 08:17 | PM.PNPUL ---
Progress Note: A&P Assessment and Plan (1) Aspiration pneumonia: Qualifiers: Aspiration pneumonia type: due to regurgitated food Laterality: left Lung location: unspecified part of lung Qualified Code(s): J69.0 - Pneumonitis due to inhalation of food and vomit Code(s): J69.0 - Pneumonitis due to inhalation of food and vomit Status: Acute Assessment and Plan: Patient presented 04/14/24 with hematemesis and then had An EGD with esophageal bezoar, esophagitis, gastritis and then had aspiration of gastric contents and his 1st x-ray when he was intubated showed a minimal left base infiltrate. patient was initiated on Zosyn, developed shock requiring Levophed, Brian-Synephrine and vasopressin and acute kidney injury. chest x-ray worsened and CT scan on 04/17/2024 showed bilateral infiltrates with dense consolidations a left lower lobe and the dependent portions of the lingula. Patient was initially treated with Zosyn from 04/16 through 04/21. He remained febrile and was changed to meropenem on 04/21/2024. Vancomycin was restarted on 04/19/2024. Patient improved clinically and was extubated on 04/21/2024. He was on 1 L on 04/22. 04/23/2024: Patient is in the ICU, extubated with a NG tube in place on room air with saturations 94%. Blood pressure is 166/85, heart rate is 101. White blood cell count 9.0, hemoglobin 12.4, creatinine 1.0, weight 95.4 kg and he is cumulative 3.6 L positive since admission. Chest x-ray shows no change in his left greater than right infiltrates compared to 04/22. Patient's last fever was 04/22 at 8:00 p.m. The patient tells me he is breathing fine. He does have a cough and phlegm production. He states that the nebulizers do help him bring up secretions. He has no shortness of breath at rest. Etiology of patient's lung injury is consistent with aspiration with possible bacterial infection. Plan: Agree with treatment for possible bacterial infection and currently on vancomycin day 5 and status post Zosyn from 04/16 through 04/21 and meropenem started on 04/21, day 3. Leukocytosis has improved, oxygenation has improved and now on room air and chest x-ray is stable. From a pulmonary perspective if he continues to improve would plan on 7 days of vancomycin and 7 days of meropenem. Patient states the nebulized levalbuterol and ipratropium q.6 hours help him expectorate and I will continue these. I will add a Cornet flutter valve. Patient should get out of bed as tolerated. speech therapy evaluation has been ordered. physical therapy evaluation to begin ambulation has been ordered. Discussed with Dr. Ponce, will follow with you. 04/24/2024: The patient tells me he is breathing normally and feels good. Cough is improved and phlegm production is present but decreased. Patient is on room air with saturations 95%. White blood cell count 11.2, creatinine 1.0, patient diuresed 1.5 L. chest x-ray shows improved left lung and right lower lobe infiltrates. Plan: patient continues to improve clinically on vancomycin day 6 and meropenem day 4. Recommend discontinuation of vancomycin on day 7 and discontinuation of meropenem on day 7. Remains on room air, chest x-ray has improved, phlegm production has improved. Patient states the nebulized levalbuterol and ipratropium help him and I will change these to q.4 hour. agree with Cornet flutter valve, out of bed to chair and ambulation as tolerated. Discussed with Dr. Dominguez, will sign off, call with questions. Subjective Date/time seen: 04/24/24 08:17 Interval history: 04/23/2024: This is a new pulmonary consult for bilateral pulmonary infiltrates. 64-year-old with a history of hypertension, hyperlipidemia, GERD, hiatal hernia and gastritis presented to the hospital on 04/14/2024 with hematemesis. At baseline patient states he has no respiratory limitations in his activities of daily living and can walk at least 5 blocks with
--- NOTE | 2024-04-24 10:34 | PCSTNOTE ---
Please refer to the Bedside Swallow Evaluation in the EMR. Please note, silent aspiration cannot be ruled out at bedside.
--- NOTE | 2024-04-24 13:06 | PCOTNOTE ---
The patient treatment was not able to be completed patient was completing paper work. Will plan to continue treatment per plan of care.
--- NOTE | 2024-04-24 13:39 | WPDGIPROGNO ---
Progress Note: A&P Assessment and Plan (1) Nausea & vomiting: Qualifiers: Vomiting type: hematemesis Qualified Code(s): K92.0 - Hematemesis Code(s): R11.2 - Nausea with vomiting, unspecified Status: Acute Assessment and Plan: probably triggered by recent use of glp1 large amount of bezoar in esophagus, this was suctioned but also required intubation OGT removed, will advance diet as tolerated use reglan as needed still with hiccups (2) Gastroparesis: Code(s): K31.84 - Gastroparesis Status: Acute Assessment and Plan: probably due to recent glp1 this medication was discontinued also noted esophagitis/gastritis probably from food stasis, on iv protonix (3) Acute respiratory failure: Qualifiers: Respiratory failure complication: hypoxia Qualified Code(s): J96.01 - Acute respiratory failure with hypoxia Code(s): J96.00 - Acute respiratory failure, unspecified whether with hypoxia or hypercapnia Status: Acute Assessment and Plan: from pneumonia but resolved extubated improving slowly, still on abx pulmonary on board (4) Aspiration pneumonia: Qualifiers: Aspiration pneumonia type: due to regurgitated food Laterality: left Lung location: unspecified part of lung Qualified Code(s): J69.0 - Pneumonitis due to inhalation of food and vomit Code(s): J69.0 - Pneumonitis due to inhalation of food and vomit Status: Acute Assessment and Plan: on iv abx, clinically better (5) Early satiety: Code(s): R68.81 - Early satiety Status: Acute Assessment and Plan: explained by EGD findings and use of GLP1 use reglan as needed Subjective Date/time seen: 04/24/24 13:39 Interval history: better, moved to floor, NGT removed and he is tolerating liquid diet Review of Systems Review of Systems: All systems reviewed & are unremarkable except as noted in HPI and below Exam Const: General: cooperative, healthy appearing and comfortable Other: No respiratory distress. He has the hiccups HENMT: Head: normal to inspection Ears: hearing grossly normal bilaterally Eyes: General: appearance normal, both eyes and all related structures Neck: Neck: normal visual inspection Chest: Chest palpation & inspection: normal inspection of the chest Resp: Effort & Inspection: normal respiratory effort and able to speak in complete sentences Auscultation: crackles, no rales, no rhonchi, no wheezes and lung sounds not diminished Cardio: Jugular venous distension: no JVD GI: Inspection: normal to inspection GI Palp: Yes Soft to palpation and No Tenderness to palpation present (GI) Auscultation: normal bowel sounds Skin: General skin exam: normal color Neuro: Speech: normal speech Sensory Exam: normal sensation Other: communicative and following commands. Extrem: General: normal to inspection Psych: Appearance: grossly normal Objective Data Vital Signs Vital Signs: Vital Signs - 24 hr 04/23/24 14:11 04/23/24 13:54 04/23/24 14:00 Temperature Pulse Rate 103 H Respiratory Rate Blood Pressure Pulse Oximetry Oxygen Delivery Room Air Room Air 04/23/24 14:00 04/23/24 15:03 04/23/24 15:12 Temperature 99.8 F H Pulse Rate 103 H 91 94 Respiratory Rate 30 H 16 16 Blood Pressure 157/88 H Pulse Oximetry 92 Oxygen Delivery 04/23/24 16:00 04/23/24 16:00 04/23/24 18:00 Temperature 97.5 F L 97 F L Pulse Rate 103 H 102 H 100 Respiratory Rate 18 20 Blood Pressure 148/79 H 166/78 H Pulse Oximetry 95 92 Oxygen Delivery 04/23/24 18:00 04/23/24 20:00 04/23/24 20:00 Temperature 98.4 F Pulse Rate 101 H 98 Respiratory Rate 20 Blood Pressure 153/84 H Pulse Oximetry 93 Oxygen Delivery Room Air 04/23/24 20:00 04/23/24 20:55 04/23/24 21:06 Temperature Pulse Rate 103 H 88 89 Respiratory Rate 16 16 Blood Pressure Pulse Oximet
--- NOTE | 2024-04-24 14:40 | PM.IMPN ---
Progress Note: A&P Assessment and Plan (1) Abnormal findings on imaging of biliary tract: Code(s): R93.2 - Abnormal findings on diagnostic imaging of liver and biliary tract Status: Acute (2) Septic shock: Code(s): A41.9 - Sepsis, unspecified organism; R65.21 - Severe sepsis with septic shock Status: Acute (3) Acute respiratory failure: Qualifiers: Respiratory failure complication: hypoxia Qualified Code(s): J96.01 - Acute respiratory failure with hypoxia Code(s): J96.00 - Acute respiratory failure, unspecified whether with hypoxia or hypercapnia Status: Acute (4) Acute kidney injury: Code(s): N17.9 - Acute kidney failure, unspecified Status: Acute (5) Gastroesophageal reflux disease: Qualifiers: Esophagitis presence: esophagitis presence not specified Qualified Code(s): K21.9 - Gastro-esophageal reflux disease without esophagitis Code(s): K21.9 - Gastro-esophageal reflux disease without esophagitis Status: Acute (6) Acute upper GI bleed: Code(s): K92.2 - Gastrointestinal hemorrhage, unspecified Status: Acute (7) Hyperlipidemia: Code(s): E78.5 - Hyperlipidemia, unspecified Status: Acute (8) Hypertension: Code(s): I10 - Essential (primary) hypertension Status: Acute (9) Nausea & vomiting: Qualifiers: Vomiting type: hematemesis Qualified Code(s): K92.0 - Hematemesis Code(s): R11.2 - Nausea with vomiting, unspecified Status: Acute (10) Electrolyte imbalance: Code(s): E87.8 - Other disorders of electrolyte and fluid balance, not elsewhere classified Status: Acute (11) Acalculous cholecystitis: Code(s): K81.9 - Cholecystitis, unspecified Status: Acute (12) Paronychia: Status: Acute Plan This is a 64-year-old male with PMH GERD, hiatal hernia, hyperlipidemia, essential hypertension, diverticulosis, internal hemorrhoids who presents to [facility] complaints of bloody vomitus. The patient had been taking extra doses of omeprazole recently due to increasing GERD symptoms. He had also been in contact with primary doctor and he was started on vonoprazan. Patient also noted epigastric and left upper quadrant abdominal discomfort with nausea. He has been on Tirzepatide at home. Patient denied NSAIDs, aspirin, blood thinner use, heavy alcohol use. Patient admitted on 04/15/2024, on 04/16 pt underwent EGD which demonstrated a large amount of food or beds or seen in the esophagus in the stomach. The larger particles could not be suction. The endoscope was removed and the patient was intubated for airway protection. There was moderate esophagitis with edematous change, biopsies taken from the lower 3rd esophagus. Moderate gastritis visualized with erythematous and edematous changes but no ulcers. Multiple biopsies taken. Duodenum within normal limits. Decision made to keep the patient intubated and he was subsequently returned to ICU. Reglan given. Gastroparesis likely caused by GLP 1 agonist. # acute respiratory failure # aspiration pneumonitis/pneumonia -patient presented with hematemesis. Per report he had aspirational event during EGD. Patient was intubated during EGD and admitted to ICU on 04/16. Patient had an air leak on arrival to ICU and ET tube placed by pasta press operator with a size 8. Per report, NG tube noted to be in the trachea. NG tube was then pulled out and OG tube was placed using a GlideScope. -extubated on 04/22 -now on room air. Received Lasix 40 mg IV x1 at 04/23 due to elevated BNP at 2700 and since he was fluid positive since admission. -pulmonology consulted on 04/23. cornet flutter valve added. duonebs to continue. On vancomycin and meropenem which will be continued for 7 days total. # septic shock # aspirational pna, paronychia -developed hypotension, LUCILA, lactic acidosis. Leukocytosis with bandemia is resolved since 7
[2024-04-24 16:05] LABS: Glucose Point of Care 81 mg/dl (65-105)
[2024-04-25] VITALS (12 sets, daily range): BP systolic 125–134; BP diastolic 63–67; PULSE 75–95; RESP 12–24; TEMP 36.7–37; O2SAT 95–100
[2024-04-25 00:48] LABS: Glucose Point of Care 99 mg/dl (65-105)
[2024-04-25] MEDS: DEXTROSE 10% 1,000 ML 20 ML IV CONT (05:38)
[2024-04-25] MEDS: VANCOMYCIN 1,750 MG/NS 500 ML 1,750 MG/500 ML BAG 250 MG IVPB ×2 (05:38→18:02)
[2024-04-25] MEDS: MEROPENEM 1 GM/NS 100 ML 1 GM/100 ML BAG IVPB ×3 (05:38→23:00)
[2024-04-25] MEDS: HEPARIN SODIUM 5,000 UNITS/ML VIAL 5000 UNITS SUB-Q ×3 (05:39→21:21)
[2024-04-25] MEDS: CENTRAL LINE FLUSH 10 ML IV PUSH ×4 (05:39→21:21)
[2024-04-25] MEDS: SUCRALFATE SUSP 100 MG/ML 10 ML UDC 1000 MG PO ×4 (05:59→21:21)
[2024-04-25 06:01] LABS: Basophils Percent Auto 0.4 % (0.2-1.2); Eosinophils Absolute Auto 0.2 K/mm3 (0-0.3); Eosinophils Percent Auto 1.8 % (0-4.4); Hemoglobin 12.1 g/dL (14.0-18.0); Immature Granulocyte Absolute 0.13 K/mm3 (0.00-0.031); Immature Granulocyte Percent A 1.2 % (0-0.5); Lymphocytes Absolute Auto 1.02 K/mm3 (0.9-3.2); Lymphocytes Percent Auto 9.8 % (18.3-44.2); Mean Corpuscular HGB Conc 31.8 g/dl (32-36); Mean Corpuscular Volume 94.1 fl (80-100); Mean Platelet Volume 10.2 fl (7.4-10.4); Monocytes Absolute Auto 0.6 K/mm3 (0.1-0.6); Neutrophils Absolute Auto 8.4 K/mm3 (1.3-6.7); Neutrophils Percent Auto 80.8 % (45.5-73.1); Platelet Count Result 239 k/mm3 (150-375); Red Blood Count 4.04 M/mm3 (4.6-6.20); Red Cell Distribution Width 14.5 % (11.5-14.5); White Blood Count 10.4 K/mm3 (4.5-10.0)
[2024-04-25 06:09] LABS: Glucose Point of Care 93 mg/dl (65-105)
[2024-04-25 06:14] LABS: Alanine Aminotransferase 75 U/L (6-50); Albumin Level 3.4 g/dL (3.5-5.1); Alkaline Phosphatase 42 U/L (38-126); Anion Gap 9 mmol/L (4-12); Aspartate Amino Transferase 37 U/L (17-59); Bilirubin,Total 1.5 mg/dL (0.2-1.3); Blood Urea Nitrogen 27 mg/dL (9-20); Calcium 8.4 mg/dL (8.4-10.2); Carbon Dioxide 21 mmol/L (22-30); Chloride 107 mmol/L (98-107); Estimated CRCL calculation 78 ml/min; Estimated Glomerular Filt Rate > 60; Glucose 98 mg/dL (65-110); Magnesium 2.2 mg/dL (1.6-2.3); Potassium 3.4 mmol/L (3.4-5.0); Sodium 137 mmol/L (137-145)
--- NOTE | 2024-04-25 07:41 | WPDGIPROGNO ---
Progress Note: A&P Assessment and Plan (1) Nausea & vomiting: Qualifiers: Vomiting type: hematemesis Qualified Code(s): K92.0 - Hematemesis Code(s): R11.2 - Nausea with vomiting, unspecified Status: Acute Assessment and Plan: probably triggered by recent use of glp1 large amount of bezoar in esophagus, this was suctioned but also required intubation now he is tolerating diet use reglan as needed less hiccups (2) Gastroparesis: Code(s): K31.84 - Gastroparesis Status: Acute Assessment and Plan: probably due to recent glp1 this medication was discontinued also noted esophagitis/gastritis probably from food stasis, on protonix (3) Acute respiratory failure: Qualifiers: Respiratory failure complication: hypoxia Qualified Code(s): J96.01 - Acute respiratory failure with hypoxia Code(s): J96.00 - Acute respiratory failure, unspecified whether with hypoxia or hypercapnia Status: Acute Assessment and Plan: from pneumonia but resolved extubated improving, completed abx pulmonary on board (4) Aspiration pneumonia: Qualifiers: Aspiration pneumonia type: due to regurgitated food Laterality: left Lung location: unspecified part of lung Qualified Code(s): J69.0 - Pneumonitis due to inhalation of food and vomit Code(s): J69.0 - Pneumonitis due to inhalation of food and vomit Status: Acute Assessment and Plan: already treated Subjective Date/time seen: 04/25/24 07:42 Interval history: feeling better, less hiccups and eating more Review of Systems Review of Systems: All systems reviewed & are unremarkable except as noted in HPI and below Exam Const: General: cooperative, healthy appearing and comfortable Other: No respiratory distress. Less hiccups HENMT: Head: normal to inspection Ears: hearing grossly normal bilaterally Eyes: General: appearance normal, both eyes and all related structures Neck: Neck: normal visual inspection Chest: Chest palpation & inspection: normal inspection of the chest Resp: Effort & Inspection: normal respiratory effort and able to speak in complete sentences Auscultation: crackles, no rales, no rhonchi, no wheezes and lung sounds not diminished Cardio: Jugular venous distension: no JVD GI: Inspection: normal to inspection GI Palp: Yes Soft to palpation and No Tenderness to palpation present (GI) Auscultation: normal bowel sounds Skin: General skin exam: normal color Neuro: Speech: normal speech Sensory Exam: normal sensation Other: communicative and following commands. Extrem: General: normal to inspection Psych: Appearance: grossly normal Objective Data Vital Signs Vital Signs: Vital Signs - 24 hr 04/24/24 08:00 04/24/24 08:00 04/24/24 10:00 Temperature Pulse Rate 97 93 Respiratory Rate Blood Pressure Pulse Oximetry Oxygen Delivery Room Air 04/24/24 11:03 04/24/24 11:12 04/24/24 08:00 Temperature 98.6 F Pulse Rate 82 90 90 Respiratory Rate 16 16 20 Blood Pressure 153/76 H Pulse Oximetry 96 Oxygen Delivery 04/24/24 11:40 04/24/24 15:00 04/24/24 15:11 Temperature 97.6 F Pulse Rate 89 89 87 Respiratory Rate 18 16 16 Blood Pressure 131/78 Pulse Oximetry 94 Oxygen Delivery 04/24/24 12:00 04/24/24 12:00 04/24/24 14:00 Temperature Pulse Rate 91 90 Respiratory Rate Blood Pressure Pulse Oximetry Oxygen Delivery Room Air 04/24/24 16:00 04/24/24 20:33 04/24/24 20:40 Temperature 98.5 F Pulse Rate 86 86 82 Respiratory Rate 18 16 16 Blood Pressure 136/67 Pulse Oximetry 98 Oxygen Delivery 04/24/24 23:42 04/24/24 20:00 Temperature 98.4 F Pulse Rate 80 Respiratory Rate 16 Blood Pressure 117/60 Pulse Oximetry 95 Oxygen Delivery Room Air Intake/Output Intake/Output: Intake & Output 04/22/24 04/23/24 04/24/24 04/25/24 23:59 23:59 23
[2024-04-25] MEDS: IPRATROPIUM BR 0.02% INH SOLN 0.5 MG/2.5 ML VIAL INHALATION ×4 (09:21→20:50)
[2024-04-25] MEDS: LEVALBUTEROL NEB 1.25 MG/3 ML 0.63 MG INHALATION ×4 (09:21→20:50)
[2024-04-25] MEDS: amLODIPine BESYLATE 10 MG TABLET PO (09:43)
[2024-04-25] MEDS: ALPRAZolam (*CRX) 0.5 MG TABLET PO ×2 (09:43→14:30)
[2024-04-25] MEDS: OLMESARTAN MEDOXOMIL 20 MG TABLET 40 MG PO (09:43)
[2024-04-25] MEDS: PANTOPRAZOLE SODIUM IV 40 MG VIAL IV PUSH ×2 (09:49→21:20)
[2024-04-25 11:26] LABS: Glucose Point of Care 93 mg/dl (65-105)
--- NOTE | 2024-04-25 11:53 | PCNFU ---
Nutrition Follow-Up Complete: Suboptimal energy intake as related to mechanical ventilation as evidenced by NPO. Goal: Meet estimated nutritional needs. Patient is progressing towards goal. We will continue current goal. Pt current nutrition is Regular . Nutrition recommendation: Ensure compact BID. Last recorded weight is 91 kg, down from 94.1 kg on admit. Bowel Motility: +BM reported 04/25 Labs Reviewed:BUN 27,Alb 3.4 Meds Noted: Protonix, Senokot,Meropenem. Skin: WNL Additional Notes: Patient on a regular diet and tolerating. Discussed diet today, handout given. Patient is interested in diet supplements of ensure. orders for Ensure compact BID providing an additional 220 kcal and 9 gm protein. Agree with diet orders. Will monitor weight, labs, skin, diet orders, meds every 5 days.
--- NOTE | 2024-04-25 12:55 | P.PNIM_ITS ---
Progress Note: A&P Assessment and Plan (1) Abnormal findings on imaging of biliary tract: Code(s): R93.2 - Abnormal findings on diagnostic imaging of liver and biliary tract Status: Acute (2) Septic shock: Code(s): A41.9 - Sepsis, unspecified organism; R65.21 - Severe sepsis with septic shock Status: Acute (3) Acute respiratory failure: Qualifiers: Respiratory failure complication: hypoxia Qualified Code(s): J96.01 - Acute respiratory failure with hypoxia Code(s): J96.00 - Acute respiratory failure, unspecified whether with hypoxia or hypercapnia Status: Acute (4) Acute kidney injury: Code(s): N17.9 - Acute kidney failure, unspecified Status: Acute (5) Gastroesophageal reflux disease: Qualifiers: Esophagitis presence: esophagitis presence not specified Qualified Code(s): K21.9 - Gastro-esophageal reflux disease without esophagitis Code(s): K21.9 - Gastro-esophageal reflux disease without esophagitis Status: Acute (6) Acute upper GI bleed: Code(s): K92.2 - Gastrointestinal hemorrhage, unspecified Status: Acute (7) Hyperlipidemia: Code(s): E78.5 - Hyperlipidemia, unspecified Status: Acute (8) Hypertension: Code(s): I10 - Essential (primary) hypertension Status: Acute (9) Nausea & vomiting: Qualifiers: Vomiting type: hematemesis Qualified Code(s): K92.0 - Hematemesis Code(s): R11.2 - Nausea with vomiting, unspecified Status: Acute (10) Electrolyte imbalance: Code(s): E87.8 - Other disorders of electrolyte and fluid balance, not elsewhere classified Status: Acute (11) Acalculous cholecystitis: Code(s): K81.9 - Cholecystitis, unspecified Status: Acute (12) Paronychia: Status: Acute Plan This is a 64-year-old male with PMH GERD, hiatal hernia, hyperlipidemia, essential hypertension, diverticulosis, internal hemorrhoids who presents to [place] [facility] complaints of bloody vomitus. The patient had been taking extra doses of omeprazole recently due to increasing GERD symptoms. He had also been in contact with primary doctor and he was started on vonoprazan. Patient also noted epigastric and left upper quadrant abdominal discomfort with nausea. He has been on Tirzepatide at home. Patient denied NSAIDs, aspirin, blood thinner use, heavy alcohol use. Patient admitted on 04/15/2024, on 04/16 pt underwent EGD which demonstrated a large amount of food or beds or seen in the esophagus in the stomach. The larger particles could not be suction. The endoscope was removed and the patient was intubated for airway protection. There was moderate esophagitis with edematous change, biopsies taken from the lower 3rd esophagus. Moderate gastritis visualized with erythematous and edematous changes but no ulcers. Multiple biopsies taken. Duodenum within normal limits. Decision made to keep the patient intubated and he was subsequently returned to ICU. Reglan given. Gastroparesis likely caused by GLP 1 agonist. # acute respiratory failure # aspiration pneumonitis/pneumonia -patient presented with hematemesis. Per report he had aspirational event during EGD. Patient was intubated during EGD and admitted to ICU on 04/16. Patient had an air leak on arrival to ICU and ET tube placed by electronic tester with a size 8. Per report, NG tube noted to be in the trachea. NG tube was then pulled out and OG tube was placed using a GlideScope. -extubated on 04/22 -now on room air. Received Lasix 40 mg IV x1 at 04/23 due to elevated BNP at 2700 and since he
--- NOTE | 2024-04-25 15:22 | PC.NURSE ---
Pt transferred to room 319 via bed. Report called to JOSSIE Tyson
--- NOTE | 2024-04-25 15:25 | ADMGEN ---
This patient, Handy Montes, was admitted to 3 [facility] Surg Room 319-01 @ 1525. Patient/family oriented to hospital policies and general routines including ID bracelet, bed and alarms, visiting hours, pain management, procedures, bathroom and other care routines, personal items, smoking policy, room service/diet, and visiting hours. Information on how to activate the Rapid Response Team has been discussed. Patient/Family are encouraged to report perceived risks to care and to ask questions if they do not understand what they are told or what they should do.
[2024-04-25 16:25] LABS: Glucose Point of Care 79 mg/dl (65-105)
[2024-04-25 20:00] LABS: Glucose Point of Care 87 mg/dl (65-105)
[2024-04-26] VITALS (7 sets, daily range): BP systolic 131–139; BP diastolic 56–71; PULSE 79–88; RESP 12–18; TEMP 36.2–37.3; O2SAT 96–99
[2024-04-26] MEDS: HEPARIN SODIUM 5,000 UNITS/ML VIAL 5000 UNITS SUB-Q (05:58)
[2024-04-26] MEDS: MEROPENEM 1 GM/NS 100 ML 1 GM/100 ML BAG IVPB ×3 (05:58→21:35)
[2024-04-26] MEDS: SUCRALFATE SUSP 100 MG/ML 10 ML UDC 1000 MG PO ×4 (05:58→20:32)
[2024-04-26] MEDS: CENTRAL LINE FLUSH 10 ML IV PUSH ×3 (05:58→21:35)
[2024-04-26 07:26] LABS: Glucose Point of Care 81 mg/dl (65-105)
[2024-04-26] MEDS: OLMESARTAN MEDOXOMIL 20 MG TABLET 40 MG PO (08:04)
[2024-04-26] MEDS: IPRATROPIUM BR 0.02% INH SOLN 0.5 MG/2.5 ML VIAL INHALATION (08:04)
[2024-04-26] MEDS: amLODIPine BESYLATE 10 MG TABLET PO (08:04)
[2024-04-26] MEDS: LEVALBUTEROL NEB 1.25 MG/3 ML 0.63 MG INHALATION (08:04)
[2024-04-26] MEDS: PANTOPRAZOLE SODIUM IV 40 MG VIAL IV PUSH ×2 (08:05→20:32)
[2024-04-26] MEDS: ALPRAZolam (*CRX) 0.5 MG TABLET PO ×3 (08:05→16:21)
[2024-04-26 11:20] LABS: Glucose Point of Care 85 mg/dl (65-105)
[2024-04-26] MEDS: DICLOFENAC SODIUM 1% 100 GM GEL (*BKC) 1 APPLIC TOPICAL (11:37)
--- NOTE | 2024-04-26 12:24 | PM.IMPN ---
Progress Note: A&P Assessment and Plan (1) Abnormal findings on imaging of biliary tract: Code(s): R93.2 - Abnormal findings on diagnostic imaging of liver and biliary tract Status: Acute (2) Septic shock: Code(s): A41.9 - Sepsis, unspecified organism; R65.21 - Severe sepsis with septic shock Status: Acute (3) Acute respiratory failure: Qualifiers: Respiratory failure complication: hypoxia Qualified Code(s): J96.01 - Acute respiratory failure with hypoxia Code(s): J96.00 - Acute respiratory failure, unspecified whether with hypoxia or hypercapnia Status: Acute (4) Acute kidney injury: Code(s): N17.9 - Acute kidney failure, unspecified Status: Acute (5) Gastroesophageal reflux disease: Qualifiers: Esophagitis presence: esophagitis presence not specified Qualified Code(s): K21.9 - Gastro-esophageal reflux disease without esophagitis Code(s): K21.9 - Gastro-esophageal reflux disease without esophagitis Status: Acute (6) Acute upper GI bleed: Code(s): K92.2 - Gastrointestinal hemorrhage, unspecified Status: Acute (7) Hyperlipidemia: Code(s): E78.5 - Hyperlipidemia, unspecified Status: Acute (8) Hypertension: Code(s): I10 - Essential (primary) hypertension Status: Acute (9) Nausea & vomiting: Qualifiers: Vomiting type: hematemesis Qualified Code(s): K92.0 - Hematemesis Code(s): R11.2 - Nausea with vomiting, unspecified Status: Acute (10) Electrolyte imbalance: Code(s): E87.8 - Other disorders of electrolyte and fluid balance, not elsewhere classified Status: Acute (11) Acalculous cholecystitis: Code(s): K81.9 - Cholecystitis, unspecified Status: Acute (12) Paronychia: Status: Acute Plan This is a 64-year-old male with PMH GERD, hiatal hernia, hyperlipidemia, essential hypertension, diverticulosis, internal hemorrhoids who presents to [place] ER complaints of bloody vomitus. The patient had been taking extra doses of omeprazole recently due to increasing GERD symptoms. He had also been in contact with primary doctor and he was started on vonoprazan. Patient also noted epigastric and left upper quadrant abdominal discomfort with nausea. He has been on Tirzepatide at home. Patient denied NSAIDs, aspirin, blood thinner use, heavy alcohol use. Patient admitted on 04/15/2024, on 04/16 pt underwent EGD which demonstrated a large amount of food or beds or seen in the esophagus in the stomach. The larger particles could not be suction. The endoscope was removed and the patient was intubated for airway protection. There was moderate esophagitis with edematous change, biopsies taken from the lower 3rd esophagus. Moderate gastritis visualized with erythematous and edematous changes but no ulcers. Multiple biopsies taken. Duodenum within normal limits. Decision made to keep the patient intubated and he was subsequently returned to ICU. Reglan given. Gastroparesis likely caused by GLP 1 agonist. # acute respiratory failure # aspiration pneumonitis/pneumonia -patient presented with hematemesis. Per report he had aspirational event during EGD. Patient was intubated during EGD and admitted to ICU on 04/16. Patient had an air leak on arrival to ICU and ET tube placed by geographical historian with a size 8. Per report, NG tube noted to be in the trachea. NG tube was then pulled out and OG tube was placed using a GlideScope. -extubated on 04/22 -now on room air. Received Lasix 40 mg IV x1 at 04/23 due to elevated BNP at 2700 and since he was fluid positive since admission. -pulmonology consulted on 04/23. cornet flutter valve added. duonebs to continue. On vancomycin and meropenem which will be continued for 7 days total. Meropenem concludes on 04/27/2024. Vancomycin concludes today # septic shock # aspirational pna, paronychia -developed hypotension, LUCILA,
[2024-04-26 14:06] LABS: Basophils Percent Auto 0.5 % (0.2-1.2); Eosinophils Absolute Auto 0.2 K/mm3 (0-0.3); Eosinophils Percent Auto 2.5 % (0-4.4); Hematocrit 37.5 % (42.0-52.0); Hemoglobin 12.1 g/dL (14.0-18.0); Immature Granulocyte Absolute 0.11 K/mm3 (0.00-0.031); Immature Granulocyte Percent A 1.3 % (0-0.5); Lymphocytes Absolute Auto 0.94 K/mm3 (0.9-3.2); Lymphocytes Percent Auto 10.8 % (18.3-44.2); Mean Corpuscular HGB Conc 32.3 g/dl (32-36); Mean Corpuscular Hemoglobin 30.3 pg (26-34); Mean Platelet Volume 10.7 fl (7.4-10.4); Monocytes Absolute Auto 0.6 K/mm3 (0.1-0.6); Monocytes Percent Auto 6.4 % (2.6-8.5); Neutrophils Absolute Auto 6.8 K/mm3 (1.3-6.7); Neutrophils Percent Auto 78.5 % (45.5-73.1); Platelet Count Result 234 k/mm3 (150-375); Red Blood Count 3.99 M/mm3 (4.6-6.20); Red Cell Distribution Width 14.5 % (11.5-14.5); White Blood Count 8.7 K/mm3 (4.5-10.0)
[2024-04-26 14:20] LABS: Alanine Aminotransferase 70 U/L (6-50); Albumin Level 3.8 g/dL (3.5-5.1); Alkaline Phosphatase 48 U/L (38-126); Anion Gap 10 mmol/L (4-12); Aspartate Amino Transferase 32 U/L (17-59); Bilirubin,Total 1.2 mg/dL (0.2-1.3); Blood Urea Nitrogen 24 mg/dL (9-20); Calcium 8.4 mg/dL (8.4-10.2); Carbon Dioxide 21 mmol/L (22-30); Chloride 105 mmol/L (98-107); Estimated CRCL calculation 78 ml/min; Estimated Glomerular Filt Rate > 60; Glucose 94 mg/dL (65-110); Magnesium 2.3 mg/dL (1.6-2.3); Potassium 3.7 mmol/L (3.4-5.0); Sodium 136 mmol/L (137-145)
[2024-04-26 16:32] LABS: Glucose Point of Care 80 mg/dl (65-105)
[2024-04-26 20:35] LABS: Glucose Point of Care 118 mg/dl (65-105)
[2024-04-26] MEDS: ONDANSETRON INJ 4 MG/2 ML VIAL IV PUSH (22:04)
[2024-04-27 05:33] VITALS: BP 123/68; PULSE 84; RESP 12; TEMP 36.8; O2SAT 95
[2024-04-27] MEDS: CENTRAL LINE FLUSH 10 ML IV PUSH ×2 (06:20→13:29)
[2024-04-27] MEDS: MEROPENEM 1 GM/NS 100 ML 1 GM/100 ML BAG IVPB ×3 (06:20→20:02)
[2024-04-27] MEDS: SUCRALFATE SUSP 100 MG/ML 10 ML UDC 1000 MG PO ×4 (06:21→20:01)
[2024-04-27 07:24] LABS: Glucose Point of Care 108 mg/dl (65-105)
[2024-04-27] MEDS: ALPRAZolam (*CRX) 0.5 MG TABLET PO ×3 (08:24→16:38)
[2024-04-27] MEDS: OLMESARTAN MEDOXOMIL 20 MG TABLET 40 MG PO (08:25)
[2024-04-27] MEDS: PANTOPRAZOLE SODIUM IV 40 MG VIAL IV PUSH ×2 (08:25→20:01)
[2024-04-27] MEDS: amLODIPine BESYLATE 10 MG TABLET PO (08:25)
[2024-04-27] MEDS: LEVALBUTEROL NEB 1.25 MG/3 ML 0.63 MG INHALATION (10:45)
[2024-04-27] MEDS: IPRATROPIUM BR 0.02% INH SOLN 0.5 MG/2.5 ML VIAL INHALATION (10:45)
[2024-04-27 10:47] VITALS: PULSE 88; RESP 18
[2024-04-27 11:01] VITALS: PULSE 87; RESP 18
[2024-04-27 11:54] LABS: Glucose Point of Care 93 mg/dl (65-105)
--- NOTE | 2024-04-27 13:08 | PM.DS ---
DS: Admitting Diagnosis Discharge Date 04/27/2024 Admitting Diagnosis vomiting DS: Discharge Diagnosis Discharge Diagnosis (1) Abnormal findings on imaging of biliary tract: Code(s): R93.2 - Abnormal findings on diagnostic imaging of liver and biliary tract Status: Acute (2) Septic shock: Code(s): A41.9 - Sepsis, unspecified organism; R65.21 - Severe sepsis with septic shock Status: Acute (3) Acute respiratory failure: Qualifiers: Respiratory failure complication: hypoxia Qualified Code(s): J96.01 - Acute respiratory failure with hypoxia Code(s): J96.00 - Acute respiratory failure, unspecified whether with hypoxia or hypercapnia Status: Acute (4) Acute kidney injury: Code(s): N17.9 - Acute kidney failure, unspecified Status: Acute (5) Gastroesophageal reflux disease: Qualifiers: Esophagitis presence: esophagitis presence not specified Qualified Code(s): K21.9 - Gastro-esophageal reflux disease without esophagitis Code(s): K21.9 - Gastro-esophageal reflux disease without esophagitis Status: Acute (6) Acute upper GI bleed: Code(s): K92.2 - Gastrointestinal hemorrhage, unspecified Status: Acute (7) Hyperlipidemia: Code(s): E78.5 - Hyperlipidemia, unspecified Status: Acute (8) Hypertension: Code(s): I10 - Essential (primary) hypertension Status: Acute (9) Nausea & vomiting: Qualifiers: Vomiting type: hematemesis Qualified Code(s): K92.0 - Hematemesis Code(s): R11.2 - Nausea with vomiting, unspecified Status: Acute (10) Electrolyte imbalance: Code(s): E87.8 - Other disorders of electrolyte and fluid balance, not elsewhere classified Status: Acute (11) Acalculous cholecystitis: Code(s): K81.9 - Cholecystitis, unspecified Status: Acute (12) Paronychia: Status: Acute DS: Summary Hospital Course Hospital Course: This is a 64-year-old male with PMH GERD, hiatal hernia, hyperlipidemia, essential hypertension, diverticulosis, internal hemorrhoids who presents to [place] ER complaints of bloody vomitus. The patient had been taking extra doses of omeprazole recently due to increasing GERD symptoms. He had also been in contact with primary doctor and he was started on vonoprazan. Patient also noted epigastric and left upper quadrant abdominal discomfort with nausea. He has been on Tirzepatide at home. Patient denied NSAIDs, aspirin, blood thinner use, heavy alcohol use. Patient admitted on 04/15/2024, on 04/16 pt underwent EGD which demonstrated a large amount of food or bezoar seen in the esophagus in the stomach. The larger particles could not be suctioned. The endoscope was removed and the patient was intubated for airway protection. There was moderate esophagitis with edematous change, biopsies taken from the lower 3rd esophagus. Moderate gastritis visualized with erythematous and edematous changes but no ulcers. Multiple biopsies taken. Duodenum within normal limits. Decision made to keep the patient intubated and he was subsequently returned to ICU. Reglan given. Gastroparesis likely caused by GLP 1 agonist. # acute respiratory failure this has now resolved. due to aspiration pneumonitis/pneumonia # aspiration pneumonitis/pneumonia -patient presented with hematemesis. Per report he had aspirational event during EGD. Patient was intubated during EGD and admitted to ICU on 04/16. Patient had an air leak on arrival to ICU and ET tube placed by prospecting driller with a size 8. Per report, NG tube noted to be in the trachea. NG tube was then pulled out and OG tube was placed using a GlideScope. -extubated on 04/22 -now on room air. Received Lasix 40 mg IV x1 at 04/23 due to elevated BNP at 2700 and since he was fluid positive since admission. -pulmonology consulted on 04/23. cornet flutter valve added. duonebs to continue. On vancomycin
[2024-04-27 14:00] VITALS: BP 125/63; PULSE 83; RESP 18; TEMP 36.2; O2SAT 97
[2024-04-27 16:25] LABS: Glucose Point of Care 87 mg/dl (65-105)
[2024-04-27 21:10] VITALS: BP 146/84; PULSE 85; RESP 20; TEMP 37.4; O2SAT 99
[2024-04-27 21:56] LABS: Glucose Point of Care 100 mg/dl (65-105)
== END 2024-04-27 21:20 | disposition home health service (06) | DRG 377 ==
LOC: ANHED 14:16 → ANH3MEDSUR 19:07 → ANH2MED 20:38 → ANHICU 04-16 11:27 → ANH3MEDSUR 04-25 15:53 → ANH2MED 04-28 09:36 → ANH3MEDSUR 04-28 09:36 → ANHICU 04-28 09:36 → ANHIMU 04-28 09:36
PROVIDERS: Internal Medicine; Internal Medicine Gastroenterology; Internal Medicine Pulmonary Disease; Nurse Practitioner Acute Care; Physician Assistant; Admitting Provider General Practice; Emergency Provider Student in an Organized Health Care Education/Training Program; PCP Internal Medicine Gastroenterology; Visit Provider Internal Medicine
PROC: 0DJ08ZZ Inspection of Upper Intestinal Tract, Via Natural or Artificial Opening Endoscopic (ICD-10-PCS; CPT 43235; principal; 2024-04-16 16:30)
DX: K92.0 Hematemesis (principal); A41.9 Sepsis, unspecified organism; R65.21 Severe sepsis with septic shock; J96.00 Acute respiratory failure, unspecified whether with hypoxia or hypercapnia; N17.0 Acute kidney failure with tubular necrosis; J69.0 Pneumonitis due to inhalation of food and vomit; J18.9 Pneumonia, unspecified organism; J95.812 Postprocedural air leak; T17.818A Gastric contents in other parts of respiratory tract causing other injury, initial encounter; T18.8XXA Foreign body in other parts of alimentary tract, initial encounter; K31.84 Gastroparesis; T50.995A Adverse effect of other drugs, medicaments and biological substances, initial encounter; K29.70 Gastritis, unspecified, without bleeding; K20.90 Esophagitis, unspecified without bleeding; K21.9 Gastro-esophageal reflux disease without esophagitis; K44.9 Diaphragmatic hernia without obstruction or gangrene; E78.5 Hyperlipidemia, unspecified; I10 Essential (primary) hypertension; R68.81 Early satiety; L40.9 Psoriasis, unspecified; Z87.891 Personal history of nicotine dependence; Z80.0 Family history of malignant neoplasm of digestive organs; Z86.010 Personal history of colon polyps; L03.012 Cellulitis of left finger; K81.9 Cholecystitis, unspecified; E87.8 Other disorders of electrolyte and fluid balance, not elsewhere classified
CPT/HCPCS: 31500; 36415; 36569; 36600; 70450; 71045; 71250; 74019; 74176; 76705; 76775; 78226; 80048; 80053; 80202; 81001; 82375; 82436; 82550; 82570; 82805; 82948; 83050; 83605; 83690; 83735; 83880; 84100; 84133; 84145; 84300; 84478; 85014; 85018; 85025; 85027; 85055; 85610; 85730; 85999; 86140; 86850; 86900; 86901; 87040; 87070; 87205; 87637; 87641; 88305; 92610; 93306; 93970; 93971; 94002; 94003; 94640; 94667; 94668; 96374; 96375; 97110; 97112; 97162; 97166; 97530; 97535; 99285; A9270; A9537; J0360; J0613; J1644; J1720; J1940; J2060; J2185; J2250; J2371; J2405; J2470; J2543; J2704; J2765; J3010; J3370; J3475; J3480; J7060; J7070; J7120; J7121; P9047